=== PATIENT | male | born 1950 | race Caucasian/White ===

== ENCOUNTER 2021-12-29 14:29 | Inpatient (IN) ==
[2021-12-29 15:18] LABS: POC Calcium, Ionized 1.12 (1.16-1.32); POC Creatinine 1.5 (0.6-1.2); POC Potassium 4.9 (3.3-5.1)
[2021-12-29] MEDS ORDERED: HYDROmorphone 1 MG/ML SYRINGE IV ONE ×2 (15:23→16:06)
[2021-12-29] MEDS ORDERED: ACETAMINOPHEN 1,000 MG/100 ML BAG IV ONE (15:23)
[2021-12-29] MEDS ORDERED: 0.9 % SODIUM CHLORIDE 1,000 ML IV ONE (15:23)
[2021-12-29] MEDS ORDERED: PIPERACILLIN SODIUM/TAZOBACTAM 3.375 GM in DEXTROSE 5% IN WATER 50 ML IV ONE (15:24)
--- NOTE | 2021-12-29 15:25 | Emergency Department Note ---
Skin/Abscess/FB HPI General Chief complaint: Skin/Abscess/Rash Stated complaint: dr yash waters, foot pain Time Seen by Provider: 12/29/21 14:31 Source: patient Mode of arrival: ambulatory Limitations: no limitations History of Present Illness HPI Narrative: 71-year-old male with history of T2DM, head neck cancer status post chemotherapies, COPD, chronic low back pain CAD, PAD, HTN history of hepatitis C, CKD stage II who presents for diabetic foot wound from Dr. Tran's office who sent him here for IV antibiotics, pain management, and admission for surgical debridement tomorrow. Patient is stating that he has throbbing pain in the left foot. This has been chronic for him on and off and he actually has 90% disability from a crush wound to this foot when he was in [place]. He denies fevers/chills/sweats. Symptoms started about 5 days ago. He was seen by Dr. Forbes on Sunday and labs were drawn and he was sent to podiatry for evaluation. He followed up today with Dr. Tran who sent the patient to the ER. An x-ray from 12/27 shows gas at the base of the first phalanx, no osteomyelitis. Patient notes that he has a feeding tube that was placed during his radiation chemotherapy's. He has now started eating solid foods but uses this for adjunct nutrition. He also has a morphine pain pump in the right lower abdomen. Unknown what the rate is. Related Data Home Medications Medication Instructions Recorded Confirmed aspirin 81 mg tablet,delayed 81 mg PO QDAY 09/26/17 12/29/21 release (Adult Aspirin Regimen) lancets (Lancets,Ultra Thin) #50 ea 08/27/19 12/29/21 clopidogrel 75 mg tablet (Plavix) 75 mg PO QDAY 07/12/20 12/29/21 prochlorperazine maleate 5 mg 5 mg PO BID PRN Nausea 08/08/21 12/29/21 tablet duloxetine 60 mg capsule,delayed 30 mg PO QHS 11/10/21 12/29/21 release metformin 1,000 mg 24 hr 500 mg PO QDAY 11/10/21 12/29/21 tablet,extended release multivitamin 1 tab PO QDAY 11/10/21 12/29/21 pregabalin 150 mg capsule 150 mg PO QHS PRN pain 12/29/21 12/29/21 Previous Rx's Medication Instructions Recorded atorvastatin 40 mg tablet 40 mg PO QDAY #90 tabs 09/05/19 empagliflozin 25 mg tablet 25 mg PO QDAY #90 tabs 09/05/19 (Jardiance) lisinopril 10 mg tablet 10 mg PO QDAY #90 tabs 09/05/19 cilostazol 50 mg tablet 50 mg PO BID #30 tabs 07/29/20 flash glucose scanning reader #6 ea 08/18/20 (FreeStyle Esther 14 Day [place]) hydroxyzine HCl 25 mg tablet 25 mg PO BID PRN anxiety #30 tabs 07/14/21 naloxone 4 mg/actuation nasal spray 4 mg intranasal .COMPLEX PRN 07/14/21 opioid overdose #2 ea flash glucose sensor (FreeStyle #6 ea 08/17/21 Esther 14 Day Sensor kit) morphine 60 mg tablet,extended 60 mg PO BID #60 tabs 11/24/21 release (MS Contin) oxycodone 10 mg tablet 10 - 20 mg PO .Q4-6H PRN pain #180 11/24/21 tabs lorazepam 1 mg tablet (Ativan) 1 mg PO QHS #30 tabs 12/01/21 pregabalin 75 mg capsule 75 mg PO QHS #90 caps 12/14/21 escitalopram oxalate 10 mg tablet 10 mg PO QDAY #90 tabs 12/27/21 sulfamethoxazole 800 1 tab PO BID #20 tabs 12/27/21 mg-trimethoprim 160 mg tablet (Bactrim DS) Allergies Allergy/AdvReac Type Severity Reaction Status Date / Time latex Allergy Severe Hives Verified 12/29/21 18:37 Bee Pollen Allergy Unknown Swelling Verified 12/29/21 18:37 chlora prep Allergy Severe Hives Uncoded 12/29/21 18:37 Review of Systems ROS ROS Narrative: Narrative: All systems ED: reviewed and negative except as stated. [facility] Narrative Patient History Narrative: Narrative: Medical/Surgical/Family History All Active Problems (Updated 12/29/21 @ 16:42 by Yancy Rutledge PA-C) Diabetic foot ulcer with osteomyelitis (Acute) Major depressive disorder (Acute) Cellulitis of left foot (Acute) Passive suicidal ideations (Acute) Urinary retention (Acute) Post-operative pain (Acute) 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) Umbilical hernia (Chronic) Lymphadenopathy (Acute) Peripheral vascular disease (Acute) Left foot pain (Chronic) Toe pain, left (Chronic) Neurogenic claudication due to lumbar spinal stenosis (Chronic) Degenerative joint disease (Chronic) Type 2 diabetes mellitus without complications (Chronic) History of cancer (Chronic) Hypercholesterolemia (Chronic) Embolism and thrombosis of artery (Chronic) COPD (chronic obstructive pulmonary disease) (Chronic) Spondylosis without myelopathy or radiculopathy, lumbar region (Chronic) Spinal stenosis, lumbar region without neurogenic claudication (Chronic) Radiculopathy, cervical region (Chronic) Chronic pain (Chronic) Low back pain (Chronic) Radiculopathy, lumbar region (Chronic) Spondylosis without myelopathy or radiculopathy, cervical region (Chronic) Medicare annual wellness visit, initial (Chronic) Hemorrhoids (Chronic) Hepatitis C (Chronic) Hemochromatosis (Chronic) Atherosclerotic heart disease of [place] coronary artery without angina pectoris (Chronic) PAD (peripheral artery disease) (Chronic) Carpal tunnel syndrome, right (Chronic) Metabolic syndrome (Chronic) Skin cancer (Chronic) Arthritis (Chronic) Acute hemorrhoid (Chronic) PNA (pneumonia) (Chronic) History of bronchitis (Chronic) Measles (Chronic) Hypertension (Chronic) 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) Chronic hepatitis C without hepatic coma (Chronic) Other cervical disc degeneration, cervicothoracic region (Chronic) 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) History of hepatitis C (Chronic) Atherosclerosis of aorta (Chronic) Chronic kidney disease, stage 2 (mild) (Chronic) Type 2 diabetes mellitus with hyperglycemia (Chronic) 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) Nicotine dependence, cigarettes, uncomplicated (Chronic) Other nonrheumatic aortic valve disorders (Chronic) Essential hypertension (Chronic) Intermittent claudication of left lower extremity due to atherosclerosis (Chronic) Opioid dependence, uncomplicated (Chronic) Chronic pain due to trauma (Chronic) Hyperlipidemia, unspecified (Chronic) Other chronic postprocedural pain (Chronic) Other intervertebral disc degeneration, lumbar region (Chronic) senior living current use of opiate analgesic (Chronic) Kidney cysts (Chronic) Laceration (Chronic) Encounter for removal of sutures (Chronic) Medical History Acute hemorrhoid Arthritis Atherosclerosis of aorta Atherosclerotic heart disease of [place] coronary artery without angina pectoris Carpal tunnel syndrome, right Chronic hepatitis C without hepatic coma Chronic kidney disease, stage 2 (mild) Chronic pain Chronic pain due to malignant neoplastic disease With intrathecal pump in place Chronic pain due to trauma COPD (chronic obstructive pulmonary disease) Degenerative joint disease Embolism and thrombosis of artery Blood clot in neck after fusion 2009/removed in surgery Encounter for removal of sutures Essential hypertension Hemochromatosis Hemochromatosis associated with mutation in HFE gene Hemorrhoids Hepatitis C History of bronchitis History of cancer History of hepatitis C Hypercholesterolemia Hyperlipidemia, unspecified Hypertension Intermittent claudication of left lower extremity due to atherosclerosis Kidney cysts Laceration Left foot pain 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 of 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 of opiate analgesic Low back pain Measles Medicare annual wellness visit, initial Metabolic syndrome Neurogenic claudication due to lumbar spinal stenosis Nicotine dependence, cigarettes, uncomplicated Opioid dependence, uncomplicated Other cervical disc degeneration, cervicothoracic region Other chronic postprocedural pain Other intervertebral disc degeneration, lumbar region Other nonrheumatic aortic valve disorders PAD (peripheral artery disease) PNA (pneumonia) Porphyria cutanea tarda Radiculopathy, cervical region Radiculopathy, lumbar region Secondary osteoarthritis of left foot Skin cancer Spinal stenosis, lumbar region without neurogenic claudication Spondylosis without myelopathy or radiculopathy, cervical region Spondylosis without myelopathy or radiculopathy, lumbar region 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 Type 2 diabetes mellitus with hyperglycemia Type 2 diabetes mellitus without complications Surgical History History of carpal tunnel surgery History of elbow surgery L History of eye surgery (~2016) Right 2017 History of foot surgery (~09/2011) L History of hand surgery Both hands History of neck surgery (~2007) 2007 History of oral surgery Root canal History of orthopedic surgery Left foot 09/2011 History of orthopedic surgery (~1992) Multiple sites- Elbow Left, Bilateral hand, Right Shoulder History of root canal procedure History of shoulder surgery R History of surgery ankle History of surgery LESI #2 L3-4 w/sed 11/03/201910/26 MAYDA #2 w/cath, w/sed 11/03/201907/27 L3-4 TAY #1 w/ sed 07/22/1907/27 MAYDA #1 w/cath, w/sed 07/22/1904/28 LESI #3 L4-5 w/sed 05/08/1904/28 MAYDA #3 w/cath, wsed 05/08/1903/27 MYADA #2 w/cath, w/sed 03/12/1903/27 LESI #2 L4-5 w/sed 03/12/1901/25 LESI #1 L4-5 w/sed 01/14/201901/25 MAYDA #1 w/cath, w/sed 01/14/201908/25 LESI #3 L4-5 w/sed 08/14/201808/25 MAYDA #3 w/cath w/sed 08/14/201805/28 MAYDA #2 w/cath w/sed 05/21/201805/28 LESI #2 L4-5 w/sed 05/21/201803/26 LESI #1 L4-5 w/sed 03/14/1803/26 MAYDA #1 w/cath, w/sed 03/14/1812/25 LESI #3 L4-5 w/sed 01/02/1812/25 MAYDA #3 w/cath, w/sed 01/02/1809/24 LESI #2 L4-5 w/sed 09/18/1709/24 MAYDA #2 w/cath, w/sed 09/18/1707/25 LESI #1 L4-5 w/sed 08/01/1707/25 MAYDA #1 w/cath, w/sed 07/17/201706/24 MBB C3-7 bilat w/sed 06/28/201701/23 LESI #1 L4-5 w/sed 01/22/201711/23 MAYDA #2 w/cath w/sed 11/21/201610/23 MAYDA #1 w/sed, w/cath 11/02/201610/20 MAYDA #2 w/sed 10/23/201307/21 LESI #1 L4-5 w/sed 07/16/201307/21 MAYDA #1 w/sed 07/16/201301/17 Facets Left L2-3,L3-4, L4-5, L5-S1 w/sed (10-6-11) Status post trigger finger release (~03/2014) 03/2014 Family History Mother Dementia Father Cancer Grandmother Diabetes Maternal Brother Lung cancer Other Breast cancer Colon cancer Social History Smoking Status: Current some day smoker Alcohol Intake Frequency: does not drink Substance Use: does not use Exam Narrative Narrative: General: AOx3, NAD, nontoxic appearing. Pleasant and conversant. HEENT: PERRL, EOMI, normocephalic. Moist mucous membranes. Normal facies and normal dentition. Chest: Symmetric, no pain to palpation. There is a left port in place. Respiratory: Subtle crackles in the right upper lung field. No respiratory distress. Unlabored breathing. Heart: Regular rate and rhythm, no murmurs/clicks/rubs. Abdomen: Non-tender, Non distended, normal bowel tones. No organomegaly. Feeding tube to the anterior abdomen and right lower quadrant pain pump in place. Extremities: Warm and well perfused. Left foot edema and cellulitis is noted that extends to the lower one third of the calf.. He has a chronic wound to the first MTP of the left foot on the plantar surface. DP 2+ bilaterally. No venou s stasis. Neuro: No focal deficits. Cranial nerves II-XII grossly normal. Skin: Warm dry, no rashes or lesions, no cyanosis. Psych: Normal mood and affect Heme/Lymph: No abnormal bruising General Limitations: no limitations Course Course Course Narrative: 71-year-old male presents for infected diabetic foot wound and cellulitis of the left lower extremity Reevaluation(s) Reevaluation #1: Obtain blood cultures, basic labs Establish IV give pain meds Start Zosyn Will need admission, awaiting Dr. Tran's call to determine disposition. Reevaluation #2: EKG normal sinus rhythm no acute ST segment changes to suggest ischemia, normal intervals and normal axis. White count is not elevated, sodium is 126 Vital Signs Vital signs: Vital Signs Temperature 98.8 F 12/29/21 14:33 Pulse Rate 88 12/29/21 14:33 Respiratory Rate 18 12/29/21 14:33 Blood Pressure 111/58 12/29/21 14:33 Pulse Oximetry (%) 99 12/29/21 14:33 Oxygen Delivery Method 12/29/21 14:33 Temperature 99.5 F H 12/31/21 07:38 Pulse Rate 64 12/31/21 03:39 Respiratory Rate 20 12/31/21 07:38 Blood Pressure 108/62 12/31/21 07:38 Pulse Oximetry (%) 92 12/31/21 07:38 Oxygen Delivery Method 12/31/21 07:38 Oxygen Flow Rate (L/min) 5 12/30/21 09:26 MDM MDM Narrative Medical decision making narrative: Infected left diabetic foot wound Hyponatremia Patient will need admission and I&D of the left foot. Given the patient's multiple comorbidities I reached out to Dr. Amador for admission who will come and see the patient here in the ER. Blood cultures are pending. Lab Data Result diagrams: 12/31/21 05:50 12/31/21 05:49 Labs: Lab Results 12/29/21 12/29/21 12/29/21 Range/Units 15:12 15:12 15:12 WBC 8.0 (4.5-11.0) K/mcL RBC 2.86 L (4.63-6.08) M/mcL Hgb 8.9 L (13.7-17.5) g/dL Hct 26.9 L (40.1-51.0) % POC Hct (41-55) MCV 94.1 (80.0-100.0) fL MCH 31.1 (26.0-34.0) pg MCHC 33.1 (31.0-36.0) g/dL RDW 14.3 (11.5-14.5) % Plt Count 202 (140-440) K/mcL MPV 10.4 (7.4-10.4) fL Immature Gran % (Auto) 0.4 (0.0-0.5) % Neut % (Auto) 78.9 H (38.0-78.0) % Lymph % (Auto) 6.6 L (15.5-49.0) % Andrew % (Auto) 11.0 (1.0-12.0) % Eos % (Auto) 2.8 (0.0-7.0) % Baso % (Auto) 0.3 (0.0-2.0) % Lymph # (Auto) 0.53 L (1.50-4.80) K/mcL Andrew # (Auto) 0.88 (0.10-0.90) K/mcL Eos # (Auto) 0.22 (0.00-0.70) K/mcL Baso # (Auto) 0.02 (0.00-0.30) K/mcL Immature Gran # 0.03 (0.00-0.05) K/mcl Absolute Neutrophils 6.30 (1.80-8.00) K/mcL PT 13.0 (11.9-14.5) sec INR 0.9 (0.9-1.1) POC Sodium (133-145) Sodium 125 L (133-145) mmol/L POC Potassium (3.3-5.1) Potassium 4.9 (3.3-5.1) mmol/L POC Chloride (96-108) Chloride 87 L (96-108) mmol/L Carbon Dioxide 29 (22-30) mmol/L POC Total CO2 (22-30) Anion Gap 9.0 (8.0-16.0) POC BUN (6-20) BUN 31 H (8-23) mg/dL Creatinine 1.4 H (0.7-1.2) mg/dL POC Creatinine (0.6-1.2) GFR Calculation 50 Glucose 117 H (70-105) mg/dL POC Glucose (70-105) Osmolality (280-300) mOSM/kg Uric Acid (2.5-8.0) mg/dL Calcium 8.9 (8.6-10.4) mg/dL POC WB Ioniz Calcium (1.16-1.32) Total Bilirubin < 0.2 (0.1-1.0) mg/dL AST 19 (<40) U/L ALT 13 (<40) U/L Alkaline Phosphatase 89 (39-117) U/L Total Protein 6.9 (5.9-8.4) gm/dL Albumin 3.2 (3.2-5.2) gm/dL Globulin 3.7 (2.2-3.7) gm/dL Albumin/Globulin Ratio 0.9 L (1.0-2.3) TSH (0.27-5.01) uIU/mL Urine Color Urine Appearance (Clear) Urine pH (5.0-9.0) Ur Specific [place] (1.000-1.035) Urine Protein (Negative) mg/dL Urine Glucose (UA) (Negative) mg/dL Urine Ketones (Negative) mg/dL Urine Occult Blood (Negative) mg/dL Urine Nitrate (Negative) Urine Bilirubin (Negative) mg/dL Urine Urobilinogen mg/dL Ur Leukocyte Esterase (Negative) /uL Urine RBC (0-3) /hpf Urine WBC (0-4) /hpf Ur Squamous Epith Cells (0-4) /hpf Urine Bacteria (0) /hpf Ur Culture Indicated? Urine Osmolality (80-1000) mOSM/kg Ur Random Creatinine (39.0-259.0) mg/dL Ur Random Sodium mmol/L 12/29/21 12/29/21 12/29/21 Range/Units 15:12 15:12 15:13 WBC (4.5-11.0) K/mcL RBC (4.63-6.08) M/mcL Hgb (13.7-17.5) g/dL Hct (40.1-51.0) % POC Hct 28.0 L (41-55) MCV (80.0-100.0) fL MCH (26.0-34.0) pg MCHC (31.0-36.0) g/dL RDW (11.5-14.5) % Plt Count (140-440) K/mcL MPV (7.4-10.4) fL Immature Gran % (Auto) (0.0-0.5) % Neut % (Auto) (38.0-78.0) % Lymph % (Auto) (15.5-49.0) % Andrew % (Auto) (1.0-12.0) % Eos % (Auto) (0.0-7.0) % Baso % (Auto) (0.0-2.0) % Lymph # (Auto) (1.50-4.80) K/mcL Andrew # (Auto) (0.10-0.90) K/mcL Eos # (Auto) (0.00-0.70) K/mcL Baso # (Auto) (0.00-0.30) K/mcL Immature Gran # (0.00-0.05) K/mcl Absolute Neutrophils (1.80-8.00) K/mcL PT (11.9-14.5) sec INR (0.9-1.1) POC Sodium 126 L (133-145) Sodium (133-145) mmol/L POC Potassium 4.9 (3.3-5.1) Potassium (3.3-5.1) mmol/L POC Chloride 87 L (96-108) Chloride (96-108) mmol/L Carbon Dioxide (22-30) mmol/L POC Total CO2 30.0 (22-30) Anion Gap (8.0-16.0) POC BUN 30 H (6-20) BUN (8-23) mg/dL Creatinine (0.7-1.2) mg/dL POC Creatinine 1.5 H (0.6-1.2) GFR Calculation Glucose (70-105) mg/dL POC Glucose 120 H (70-105) Osmolality 279 L (280-300) mOSM/kg Uric Acid 4.5 (2.5-8.0) mg/dL Calcium (8.6-10.4) mg/dL POC WB Ioniz Calcium 1.12 L (1.16-1.32) Total Bilirubin (0.1-1.0) mg/dL AST (<40) U/L ALT (<40) U/L Alkaline Phosphatase (39-117) U/L Total Protein (5.9-8.4) gm/dL Albumin (3.2-5.2) gm/dL Globulin (2.2-3.7) gm/dL Albumin/Globulin Ratio (1.0-2.3) TSH 3.05 (0.27-5.01) uIU/mL Urine Color Urine Appearance (Clear) Urine pH (5.0-9.0) Ur Specific [place] (1.000-1.035) Urine Protein (Negative) mg/dL Urine Glucose (UA) (Negative) mg/dL Urine Ketones (Negative) mg/dL Urine Occult Blood (Negative) mg/dL Urine Nitrate (Negative) Urine Bilirubin (Negative) mg/dL Urine Urobilinogen mg/dL Ur Leukocyte Esterase (Negative) /uL Urine RBC (0-3) /hpf Urine WBC (0-4) /hpf Ur Squamous Epith Cells (0-4) /hpf Urine Bacteria (0) /hpf Ur Culture Indicated? Urine Osmolality (80-1000) mOSM/kg Ur Random Creatinine (39.0-259.0) mg/dL Ur Random Sodium mmol/L 12/29/21 12/29/21 12/29/21 Range/Units 16:05 16:05 16:05 WBC (4.5-11.0) K/mcL RBC (4.63-6.08) M/mcL Hgb (13.7-17.5) g/dL Hct (40.1-51.0) % POC Hct (41-55) MCV (80.0-100.0) fL MCH (26.0-34.0) pg MCHC (31.0-36.0) g/dL RDW (11.5-14.5) % Plt Count (140-440) K/mcL MPV (7.4-10.4) fL Immature Gran % (Auto) (0.0-0.5) % Neut % (Auto) (38.0-78.0) % Lymph % (Auto) (15.5-49.0) % Andrew % (Auto) (1.0-12.0) % Eos % (Auto) (0.0-7.0) % Baso % (Auto) (0.0-2.0) % Lymph # (Auto) (1.50-4.80) K/mcL Andrew # (Auto) (0.10-0.90) K/mcL Eos # (Auto) (0.00-0.70) K/mcL Baso # (Auto) (0.00-0.30) K/mcL Immature Gran # (0.00-0.05) K/mcl Absolute Neutrophils (1.80-8.00) K/mcL PT (11.9-14.5) sec INR (0.9-1.1) POC Sodium (133-145) Sodium (133-145) mmol/L POC Potassium (3.3-5.1) Potassium (3.3-5.1) mmol/L POC Chloride (96-108) Chloride (96-108) mmol/L Carbon Dioxide (22-30) mmol/L POC Total CO2 (22-30) Anion Gap (8.0-16.0) POC BUN (6-20) BUN (8-23) mg/dL Creatinine (0.7-1.2) mg/dL POC Creatinine (0.6-1.2) GFR Calculation Glucose (70-105) mg/dL POC Glucose (70-105) Osmolality (280-300) mOSM/kg Uric Acid (2.5-8.0) mg/dL Calcium (8.6-10.4) mg/dL POC WB Ioniz Calcium (1.16-1.32) Total Bilirubin (0.1-1.0) mg/dL AST (<40) U/L ALT (<40) U/L Alkaline Phosphatase (39-117) U/L Total Protein (5.9-8.4) gm/dL Albumin (3.2-5.2) gm/dL Globulin (2.2-3.7) gm/dL Albumin/Globulin Ratio (1.0-2.3) TSH (0.27-5.01) uIU/mL Urine Color Yellow Urine Appearance Clear (Clear) Urine pH 7.0 (5.0-9.0) Ur Specific [place] 1.005 (1.000-1.035) Urine Protein Negative (Negative) mg/dL Urine Glucose (UA) >=500 A (Negative) mg/dL Urine Ketones Negative (Negative) mg/dL Urine Occult Blood Negative (Negative) mg/dL Urine Nitrate Negative (Negative) Urine Bilirubin Negative (Negative) mg/dL Urine Urobilinogen Negative mg/dL Ur Leukocyte Esterase Negative (Negative) /uL Urine RBC 2 (0-3) /hpf Urine WBC < 1 (0-4) /hpf Ur Squamous Epith Cells 0 (0-4) /hpf Urine Bacteria None (0) /hpf Ur Culture Indicated? No Urine Osmolality 229 (80-1000) mOSM/kg Ur Random Creatinine 21.2 L (39.0-259.0) mg/dL Ur Random Sodium 20 mmol/L Discharge Plan Patient/Caregiver Discharge Instructions Pt seen by BULK DELIVERY DRIVER/PA only: Yes Clinical Impression: Diabetic foot ulcer with osteomyelitis Patient Disposition: Xfer As Inpt ([facility]) Discharge Date/Time: 12/29/21 18:28
--- NOTE | 2021-12-29 15:59 | XRay Report ---
HISTORY: Preop FINDINGS: The lungs are clear and well expanded. Patient has a Port-A-Cath placed through the left internal jugular vein with the tip in the superior vena cava. The mediastinum and kelly are normal. The heart size and pulmonary vessels are normal. There is a metal plate in the lower neck following fusion. There has been prior surgery in the acromioclavicular joints. IMPRESSION: Normal chest. Interpreted and Authenticated by: Sterling Gayle 12/29/21
[2021-12-29] MEDS ORDERED: HYDROmorphone 1 MG/ML SYRINGE IV PRN (16:08)
[2021-12-29 16:27] LABS: Basophils # (Auto) 0.02 K/mcL (0.00-0.30); Basophils % (Auto) 0.3 % (0.0-2.0); Eosinophils # (Auto) 0.22 K/mcL (0.00-0.70); Eosinophils % (Auto) 2.8 % (0.0-7.0); Hematocrit 26.9 % (40.1-51.0); Hemoglobin 8.9 g/dL (13.7-17.5); Lymphocytes # (Auto) 0.53 K/mcL (1.50-4.80); Lymphocytes % (Auto) 6.6 % (15.5-49.0); Mean Cell Volume 94.1 fL (80.0-100.0); Mean Corpuscular HGB Conc 33.1 g/dL (31.0-36.0); Mean Platelet Volume 10.4 fL (7.4-10.4); Monocytes # (Auto) 0.88 K/mcL (0.10-0.90); Neutrophils % (Auto) 78.9 % (38.0-78.0); Platelet Count 202 K/mcL (140-440); RBC 2.86 M/mcL (4.63-6.08); Red Cell Distribution Width 14.3 % (11.5-14.5)
--- NOTE | 2021-12-29 16:31 | Internal Med History&Physical ---
HPI History of Present Illness Patient information: Note initiated : 12/29/21 at 4:30 pm Service Date, if different from initiated Date: [] Patient: Jt Goodrich a 71 y/o M admitted on for dr yash waters, foot pain. Chief Complaint: [] History of present illness: Mr. Goodrich is a 71 year old M Patient presents the ED with left foot infection for the past week. He was sent in by his campaign manager Dr. Tran. Patient states that about a week ago he noticed that his left foot which has had a history of crush injury developed redness swelling and pain around the ball of the foot. He went in to see his primary care Dr. Forbes who ordered x-ray and some labs and then sent him to see Dr. Tran. The x-ray showed some gas in the soft tissue. Dr. Tran saw him today and sent him to the ED for IV antibiotics and likely surgical I&D. Patient denies fever chills nausea vomiting. Sodium was noted to be low at 126 with a low chloride and an elevated BUN and creatinine as well. Anemia present. Review of Systems: Pertinent positives as above. Denies headache/fever/chills/nausea/vomiting/chest or abdominal pain/cough/dyspnea/diarrhea. Remaining 10 point review of system reviewed and negative. 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) Umbilical hernia (Chronic) Lymphadenopathy (Acute) Peripheral vascular disease (Acute) Left foot pain (Chronic) Toe pain, left (Chronic) Neurogenic claudication due to lumbar spinal stenosis (Chronic) Degenerative joint disease (Chronic) Type 2 diabetes mellitus without complications (Chronic) History of cancer (Chronic) Hypercholesterolemia (Chronic) Embolism and thrombosis of artery (Chronic) COPD (chronic obstructive pulmonary disease) (Chronic) Spondylosis without myelopathy or radiculopathy, lumbar region (Chronic) Spinal stenosis, lumbar region without neurogenic claudication (Chronic) Radiculopathy, cervical region (Chronic) Chronic pain (Chronic) Low back pain (Chronic) Radiculopathy, lumbar region (Chronic) Spondylosis without myelopathy or radiculopathy, cervical region (Chronic) Medicare annual wellness visit, initial (Chronic) Hemorrhoids (Chronic) Hepatitis C (Chronic) Hemochromatosis (Chronic) Atherosclerotic heart disease of [place] coronary artery without angina pectoris (Chronic) PAD (peripheral artery disease) (Chronic) Carpal tunnel syndrome, right (Chronic) Metabolic syndrome (Chronic) Skin cancer (Chronic) Arthritis (Chronic) Acute hemorrhoid (Chronic) PNA (pneumonia) (Chronic) History of bronchitis (Chronic) Measles (Chronic) Hypertension (Chronic) 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) Chronic hepatitis C without hepatic coma (Chronic) Other cervical disc degeneration, cervicothoracic region (Chronic) 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) History of hepatitis C (Chronic) Atherosclerosis of aorta (Chronic) Chronic kidney disease, stage 2 (mild) (Chronic) Type 2 diabetes mellitus with hyperglycemia (Chronic) FDC current use of insulin (Chronic) Nicotine dependence, cigarettes, uncomplicated (Chronic) Other nonrheumatic aortic valve disorders (Chronic) Essential hypertension (Chronic) Intermittent claudication of left lower extremity due to atherosclerosis (Chronic) Opioid dependence, uncomplicated (Chronic) Chronic pain due to trauma (Chronic) Hyperlipidemia, unspecified (Chronic) Other chronic postprocedural pain (Chronic) Other intervertebral disc degeneration, lumbar region (Chronic) FDC current use of opiate analgesic (Chronic) Kidney cysts (Chronic) Laceration (Chronic) Encounter for removal of sutures (Chronic) Medical History Acute hemorrhoid Arthritis Atherosclerosis of aorta Atherosclerotic heart disease of [place] coronary artery without angina pectoris Carpal tunnel syndrome, right Chronic hepatitis C without hepatic coma Chronic kidney disease, stage 2 (mild) Chronic pain Chronic pain due to malignant neoplastic disease With intrathecal pump in place Chronic pain due to trauma COPD (chronic obstructive pulmonary disease) Degenerative joint disease Embolism and thrombosis of artery Blood clot in neck after fusion 2009/removed in surgery Encounter for removal of sutures Essential hypertension Hemochromatosis Hemochromatosis associated with mutation in HFE gene Hemorrhoids Hepatitis C History of bronchitis History of cancer History of hepatitis C Hypercholesterolemia Hyperlipidemia, unspecified Hypertension Intermittent claudication of left lower extremity due to atherosclerosis Kidney cysts Laceration Left foot pain terminal clerk current use of insulin terminal clerk current use of opiate analgesic Low back pain Measles Medicare annual wellness visit, initial Metabolic syndrome Neurogenic claudication due to lumbar spinal stenosis Nicotine dependence, cigarettes, uncomplicated Opioid dependence, uncomplicated Other cervical disc degeneration, cervicothoracic region Other chronic postprocedural pain Other intervertebral disc degeneration, lumbar region Other nonrheumatic aortic valve disorders PAD (peripheral artery disease) PNA (pneumonia) Porphyria cutanea tarda Radiculopathy, cervical region Radiculopathy, lumbar region Secondary osteoarthritis of left foot Skin cancer Spinal stenosis, lumbar region without neurogenic claudication Spondylosis without myelopathy or radiculopathy, cervical region Spondylosis without myelopathy or radiculopathy, lumbar region 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 Type 2 diabetes mellitus with hyperglycemia Type 2 diabetes mellitus without complications Surgical History History of carpal tunnel surgery History of elbow surgery L History of eye surgery (~2016) Right 2017 History of foot surgery (~09/2011) L History of hand surgery Both hands History of neck surgery (~2007) 2007 History of oral surgery Root canal History of orthopedic surgery Left foot 09/2011 History of orthopedic surgery (~1992) Multiple sites- Elbow Left, Bilateral hand, Right Shoulder History of root canal procedure History of shoulder surgery R History of surgery ankle History of surgery LESI #2 L3-4 w/sed 11/03/201910/26 MAYDA #2 w/cath, w/sed 11/03/201907/27 L3-4 TAY #1 w/ sed 07/22/1907/27 MAYDA #1 w/cath, w/sed 07/22/1904/28 LESI #3 L4-5 w/sed 05/08/1904/28 MAYDA #3 w/cath, wsed 05/08/1903/27 MAYDA #2 w/cath, w/sed 03/12/1903/27 LESI #2 L4-5 w/sed 03/12/1901/25 LESI #1 L4-5 w/sed 01/14/201901/25 MAYDA #1 w/cath, w/sed 01/14/201908/25 LESI #3 L4-5 w/sed 08/14/201808/25 MAYDA #3 w/cath w/sed 08/14/201805/28 MAYDA #2 w/cath w/sed 05/21/201805/28 LESI #2 L4-5 w/sed 05/21/201803/26 LESI #1 L4-5 w/sed 03/14/1803/26 MAYDA #1 w/cath, w/sed 03/14/1812/25 LESI #3 L4-5 w/sed 01/02/1812/25 MAYDA #3 w/cath, w/sed 01/02/1809/24 LESI #2 L4-5 w/sed 09/18/1709/24 MAYDA #2 w/cath, w/sed 09/18/1707/25 LESI #1 L4-5 w/sed 08/01/1707/25 MAYDA #1 w/cath, w/sed 07/17/201706/24 MBB C3-7 bilat w/sed 06/28/201701/23 LESI #1 L4-5 w/sed 01/22/201711/23 MAYDA #2 w/cath w/sed 11/21/201610/23 MAYDA #1 w/sed, w/cath 11/02/201610/20 MAYDA #2 w/sed 10/23/201307/21 LESI #1 L4-5 w/sed 07/16/201307/21 MAYDA #1 w/sed 07/16/201301/17 Facets Left L2-3,L3-4, L4-5, L5-S1 w/sed (01-12-11) Status post trigger finger release (~03/2014) 03/2014 Family History Mother Dementia Father Cancer Grandmother Diabetes Maternal Brother Lung cancer Other Breast cancer Colon cancer Social History marital status: occupational status: retired smoking status: Current some day smoker alcohol intake frequency: does not drink substance use type: does not use MEDS/ALLERGIES Home Medications and Allergies Home Medications Medication Instructions Recorded Confirmed Type aspirin 81 mg tablet,delayed 81 mg PO QDAY 09/26/17 12/27/21 History release (Adult Aspirin Regimen) lancets (Lancets,Ultra Thin) #50 ea 08/27/19 12/27/21 History atorvastatin 40 mg tablet 40 mg PO QDAY #90 tabs 09/05/19 12/27/21 Rx empagliflozin 25 mg tablet 25 mg PO QDAY #90 tabs 09/05/19 12/27/21 Rx (Jardiance) lisinopril 10 mg tablet 10 mg PO QDAY #90 tabs 09/05/19 12/27/21 Rx clopidogrel 75 mg tablet (Plavix) 75 mg PO QDAY 07/12/20 12/27/21 History cilostazol 50 mg tablet 50 mg PO BID #30 tabs 07/29/20 12/27/21 Rx flash glucose scanning reader #6 ea 08/18/20 12/27/21 Rx (FreeStyle Esther 14 Day [place]) hydroxyzine HCl 25 mg tablet 25 mg PO BID PRN anxiety #30 tabs 07/14/21 12/27/21 Rx naloxone 4 mg/actuation nasal spray 4 mg intranasal .COMPLEX PRN 07/14/21 12/27/21 Rx opioid overdose #2 ea prochlorperazine maleate 5 mg 5 mg PO BID PRN Nausea 08/08/21 12/27/21 History tablet flash glucose sensor (FreeStyle #6 ea 08/17/21 12/27/21 Rx Esther 14 Day Sensor kit) duloxetine 60 mg capsule,delayed 30 mg PO QHS 11/10/21 12/27/21 History release metformin 1,000 mg 24 hr 500 mg PO QDAY 11/10/21 12/27/21 History tablet,extended release multivitamin 1 tab PO QDAY 11/10/21 12/27/21 History vitamin A-vitamin C-vit E-min 1 tab PO BID 11/10/21 12/27/21 History tablet morphine 60 mg tablet,extended 60 mg PO BID #60 tabs 11/24/21 12/27/21 Rx release (MS Contin) oxycodone 10 mg tablet 10 - 20 mg PO .Q4-6H PRN pain #180 11/24/21 12/27/21 Rx tabs lorazepam 1 mg tablet (Ativan) 1 mg PO QHS #30 tabs 12/01/21 12/27/21 Rx pregabalin 150 mg capsule 150 mg PO QHS #90 caps 12/14/21 12/27/21 Rx pregabalin 75 mg capsule 75 mg PO QHS #90 caps 12/14/21 12/27/21 Rx escitalopram oxalate 10 mg tablet 10 mg PO QDAY #90 tabs 12/27/21 12/27/21 Rx sulfamethoxazole 800 1 tab PO BID #20 tabs 12/27/21 12/27/21 Rx mg-trimethoprim 160 mg tablet (Bactrim DS) Allergies Allergy/AdvReac Type Severity Reaction Status Date / Time Bee Pollen Allergy Unknown Unknown Verified 12/27/21 10:48 latex Allergy Unknown Unknown Verified 12/27/21 10:48 chlora prep Allergy Hives Uncoded 12/27/21 10:48 EXAM Constitutional Vitals: Temp Pulse Resp BP Pulse Ox O2 Del Method 98.8 F 74 18 135/70 100 12/29/21 14:33 12/29/21 16:01 12/29/21 14:33 12/29/21 16:01 12/29/21 16:01 12/29/21 14:33 Exam: General: Alert, Awake, No acute Distress Eyes/N/T: EOMI, PERRL, Head/Neck: neck supple, normocephalic atraumatic CV: RRR, 2/6SM, normal s1/s2 Pulm: Clear b/l, no wheezing/rhonchi/rales Abd: soft, nontender, +BS x4 Ext: no clubbing/cyanosis, LLE 2+ edema and RLE 3+ edema with erythema/swelling/tenderness Neuro: Alert, no focal deficits, moves all extremities, Skin: warm/dry DATA Data Completed and Pending Labs: Labs from last 24 hours 12/29/21 12/29/21 12/29/21 16:05 15:13 15:12 WBC RBC Hgb Hct POC Hct 28.0 L MCV MCH MCHC RDW Plt Count MPV Immature Gran % (Auto) Neut % (Auto) Lymph % (Auto) [place] % (Auto) Eos % (Auto) Baso % (Auto) Lymph # (Auto) [place] # (Auto) Eos # (Auto) Baso # (Auto) Immature Gran # Absolute Neutrophils PT INR POC Sodium 126 L Sodium Pending POC Potassium 4.9 Potassium Pending POC Chloride 87 L Chloride Pending Carbon Dioxide Pending POC Total CO2 30.0 Anion Gap Pending POC BUN 30 H BUN Pending Creatinine Pending POC Creatinine 1.5 H GFR Calculation Pending Glucose Pending POC Glucose 120 H Calcium Pending POC WB Ioniz Calcium 1.12 L Total Bilirubin Pending AST Pending ALT Pending Alkaline Phosphatase Pending Total Protein Pending Albumin Pending Globulin Pending Albumin/Globulin Ratio Pending Urine Color Pending Urine Appearance Pending Urine pH Pending Ur Specific [place] Pending Urine Protein Pending Urine Glucose (UA) Pending Urine Ketones Pending Urine Occult Blood Pending Urine Nitrate Pending Urine Bilirubin Pending Urine Urobilinogen Pending Ur Leukocyte Esterase Pending 12/29/21 12/29/21 15:12 15:12 WBC 8.0 RBC 2.86 L Hgb 8.9 L Hct 26.9 L POC Hct MCV 94.1 MCH 31.1 MCHC 33.1 RDW 14.3 Plt Count 202 MPV 10.4 Immature Gran % (Auto) 0.4 Neut % (Auto) 78.9 H Lymph % (Auto) 6.6 L [place] % (Auto) 11.0 Eos % (Auto) 2.8 Baso % (Auto) 0.3 Lymph # (Auto) 0.53 L [place] # (Auto) 0.88 Eos # (Auto) 0.22 Baso # (Auto) 0.02 Immature Gran # 0.03 Absolute Neutrophils 6.30 PT Pending INR Pending POC Sodium Sodium POC Potassium Potassium POC Chloride Chloride Carbon Dioxide POC Total CO2 Anion Gap POC BUN BUN Creatinine POC Creatinine GFR Calculation Glucose POC Glucose Calcium POC WB Ioniz Calcium Total Bilirubin AST ALT Alkaline Phosphatase Total Protein Albumin Globulin Albumin/Globulin Ratio Urine Color Urine Appearance Urine pH Ur Specific [place] Urine Protein Urine Glucose (UA) Urine Ketones Urine Occult Blood Urine Nitrate Urine Bilirubin Urine Urobilinogen Ur Leukocyte Esterase A/P Narrative A/P Narrative: A: *Left foot infection: *Hyponatremia: *MARYANN on CKD III: Likely prerenal *Anemia, chronic: *PVD: On asa/?plavix/?cilostazol, statin *DM w/neuropathy: *HTN/HLD: on acei *Depression/anxiety: P: -IV abx -Dr. Tran for podiatry -IVF f/u renal -Hold antiplatelets for surgery -Continue statin -hold ACEI for MARYANN -Urine studies and follow-up sodium level -PT/OT -Home medication reconciliation -ppx: Heparin(hold for any procedures) Time Spent With Patient Time: Total time spent is greater than 50% in coordination of care (as documented) at patient's floor/unit and/or counseling patient: Total time spent with greater than 50% in coordination of care (as documented) at patient's floor/unit and/or counseling patient:: 50 - 70 minutes
[2021-12-29 16:41] LABS: INR 0.9 (0.9-1.1)
[2021-12-29 16:44] LABS: ALT/SGPT 13 U/L (<40); AST/SGOT 19 U/L (<40); Albumin 3.2 gm/dL (3.2-5.2); Albumin/Globulin Ratio 0.9 (1.0-2.3); Alkaline Phosphatase 89 U/L (39-117); Bilirubin,Total < 0.2 mg/dL (0.1-1.0); Blood Urea Nitrogen 31 mg/dL (8-23); Calcium 8.9 mg/dL (8.6-10.4); Carbon Dioxide 29 mmol/L (22-30); Chloride 87 mmol/L (96-108); Globulin 3.7 gm/dL (2.2-3.7); Glomerular Filtration Rate 50; Glucose 117 mg/dL (70-105)
[2021-12-29 16:54] LABS: Appearance,Urine CLEAR (Clear); Bilirubin,Urine Negative (Negative); Color,Urine YELLOW; Culture Indicated,Urine No; Glucose,Urine (UA) >=500 mg/dL (Negative); Ketones,Urine Negative (Negative); Leukocyte Esterase,Urine Negative /uL (Negative); Nitrate,Urine Negative (Negative); Protein,Urine Negative (Negative); Specific Gravity,Urine 1.005 (1.000-1.035); Urine Blood Negative (Negative); Urine RBC 2 /hpf (0-3); Urine Squamous Epithelial Cell 0 /hpf (0-4); Urine WBC < 1 /hpf (0-4); Urobilinogen,Urine Negative
[2021-12-29 17:29] LABS: Uric Acid 4.5 mg/dL (2.5-8.0)
[2021-12-29 17:30] LABS: Osmolality,Urine 229 mOSM/kg (80-1000)
[2021-12-29 17:32] LABS: Sodium, Urine Random 20 mmol/L
[2021-12-29] MEDS ORDERED: 0.9 % SODIUM CHLORIDE 1,000 ML IV SCH (18:34)
[2021-12-29] MEDS ORDERED: ACETAMINOPHEN 325 MG TABLET PO PRN (18:34)
[2021-12-29] MEDS ORDERED: HYDROcodone/APAP 5/325MG TABLET PO PRN (18:34)
[2021-12-29] MEDS ORDERED: ONDANSETRON 4 MG/2 ML VIAL IV PRN (18:34)
[2021-12-29] MEDS ORDERED: DEXTROSE 50% 50 ML VIAL IV PRN (18:34)
[2021-12-29] MEDS ORDERED: morphine 4 MG/ML VIAL IV PRN (18:34)
[2021-12-29] MEDS ORDERED: LABETALOL 5 MG/ML ML IV PRN (18:34)
[2021-12-29] MEDS ORDERED: POTASSIUM CHLORIDE 40 MEQ in DEXTROSE 5% IN WATER 500 ML IV PRN (18:34)
[2021-12-29] MEDS ORDERED: MAGNESIUM SULFATE 2 GM/50 ML BAG IV PRN (18:34)
[2021-12-29] MEDS ORDERED: IPRATROPIUM/ALBUTEROL 3 ML AMPUL.NEB NEB PRN (18:34)
[2021-12-29] MEDS ORDERED: POLYETHYLENE GLYCOL 3350 17 GM PACKET PO PRN (18:34)
[2021-12-29] MEDS ORDERED: POTASSIUM CHLORIDE 20 MEQ TABLET PO PRN ×2 (18:34)
[2021-12-29] MEDS ORDERED: SENNOSIDES 1 TABLET PO PRN (18:34)
[2021-12-29] MEDS ORDERED: DEXTROSE 31 GM ORAL.SUSP PO PRN (18:34)
[2021-12-29] MEDS ORDERED: HYDROcodone/APAP 5/325MG TABLET PO ONE (19:24)
[2021-12-29] MEDS: INSULIN LISPRO 1 UNIT/0.01 ML UNIT SQ SCH (20:04)
[2021-12-29] MEDS ORDERED: NON FORMULARY MEDICATION 1 DOSE MISCELL (Oxycodone 10 mg tablet) PO PRN (21:03)
[2021-12-29] MEDS ORDERED: PREGABALIN 150 MG CAPSULE PO PRN (21:03)
[2021-12-29] MEDS ORDERED: PROCHLORPERAZINE 10 MG TABLET PO PRN (21:34)
[2021-12-29] MEDS: DOCUSATE SODIUM 100 MG CAPSULE PO SCH (21:48)
[2021-12-29] MEDS: PIPERACILLIN SODIUM/TAZOBACTAM 3.375 GM in DEXTROSE 5% IN WATER 50 ML IV SCH (21:48)
[2021-12-29] MEDS: DULoxetine 30 MG CAPSULE PO SCH (21:48)
[2021-12-29] MEDS: HYDROmorphone 0.5 MG/0.5 ML SYRINGE IV PRN (21:49)
[2021-12-29] MEDS: HEPARIN 5,000 UNIT/ML VIAL SQ SCH (21:55)
[2021-12-29] MEDS: 0.9 % SODIUM CHLORIDE 10 ML SYRINGE IV SCH (21:56)
[2021-12-30] MEDS: PIPERACILLIN SODIUM/TAZOBACTAM 3.375 GM in DEXTROSE 5% IN WATER 50 ML IV SCH ×4 (03:27→18:18)
[2021-12-30] MEDS: HYDROmorphone 0.5 MG/0.5 ML SYRINGE IV PRN ×4 (03:31→20:51)
[2021-12-30] MEDS: 0.9 % SODIUM CHLORIDE 10 ML SYRINGE IV SCH ×3 (06:25→20:51)
[2021-12-30 07:10] LABS: Basophils # (Auto) 0.03 K/mcL (0.00-0.30); Basophils % (Auto) 0.5 % (0.0-2.0); Eosinophils # (Auto) 0.24 K/mcL (0.00-0.70); Eosinophils % (Auto) 3.7 % (0.0-7.0); Hematocrit 29.9 % (40.1-51.0); Hemoglobin 9.6 g/dL (13.7-17.5); Lymphocytes # (Auto) 0.47 K/mcL (1.50-4.80); Lymphocytes % (Auto) 7.3 % (15.5-49.0); Mean Cell Volume 96.1 fL (80.0-100.0); Mean Corpuscular HGB Conc 32.1 g/dL (31.0-36.0); Mean Platelet Volume 10.4 fL (8.8-12.5); Monocytes # (Auto) 0.73 K/mcL (0.10-0.90); Monocytes % (Auto) 11.3 % (1.0-12.0); Neutrophils % (Auto) 76.9 % (38.0-78.0); Platelet Count 199 K/mcL (140-440); RBC 3.11 M/mcL (4.63-6.08); Red Cell Distribution Width 14.6 % (11.5-14.5); WBC 6.5 K/mcL (4.5-11.0)
[2021-12-30] MEDS: INSULIN LISPRO 1 UNIT/0.01 ML UNIT SQ SCH ×5 (07:14→20:50)
--- NOTE | 2021-12-30 07:47 | Internal Med Progress Note ---
SUBJECTIVE Subjective Patient information: Note initiated : 12/30/21 at 7:43 am Service Date, if different from initiated Date: [] Patient: Jt Goodrich a 71 y/o M admitted on 12/29/[address] yash waters, foot pain. Chief Complaint: [] Interval history: History of present illness: Mr. Goodrich is a 71 year old M Patient presents the ED with left foot infection for the past week. He was sent in by his billing administrator Dr. Tran. Patient states that about a week ago he noticed that his left foot which has had a history of crush injury developed redness swelling and pain around the ball of the foot. He went in to see his primary care Dr. Forbes who ordered x-ray and some labs and then sent him to see Dr. Tran. The x-ray showed some gas in the soft tissue. Dr. Tran saw him today and sent him to the ED for IV antibiotics and likely surgical I&D. Patient denies fever chills nausea vomiting. Sodium was noted to be low at 126 with a low chloride and an elevated BUN and creatinine as well. Anemia present. 12/30 Patient status post surgery with I&D of the left first metatarsal and bone biopsy. Patient feeling little drowsy after surgery but otherwise no complaints Review of Systems: denies headache/fever/chills/nausea/vomiting/chest or abdominal pain/cough/dyspnea/diarrhea. Otherwise see above. Constitutional Vitals: Vital Signs Temp Pulse Resp BP Pulse Ox O2 Del Method 97.6 F 87 20 127/62 98 12/30/21 07:21 12/30/21 03:26 12/30/21 07:21 12/30/21 07:21 12/30/21 07:21 12/30/21 07:21 Period Temp Pulse Resp BP Sys/Franco Pulse Ox O2 Del Method O2 Flow Rate Last 24 Hr 97.4 F-98.8 F 67-88 18-20 91-135/51-74 93-100 Room Air-Room Air Intake and Output 12/29/21 12/30/21 12/30/21 21:59 05:59 13:59 Intake Total 2050 100 Output Total 1225 1500 Balance 825 -1400 Weight 65.589 kg Intake & Output: Intake & Output 12/29/21 12/30/21 12/30/21 21:59 05:59 13:59 Intake Total 205 100 Output Total 1225 1500 Balance 825 -1400 Weight 65.589 kg Intake: IV 1150 100 Sodium Chloride 0.9% 1,000 ml @ 1000 Wide Open IV BOLUS ONE Rx#: [id number] Zosyn 3.375 gm In Dextrose 5% 50 100 in Water 50 ml @ 100 mls/hr IV Q6H [facility] Rx#:[id number] Tube Feeding 750 GI Tube Flush 150 Output: Void Amount 1225 1500 Other: Urine Appearance Clear Clear Urine Color Yellow Bright Yellow Pale Urine Odor Normal Stool Size Small Small Stool Color Brown Brown Stool Consistency Formed # Bowel Movements 1 1 Exam: General: Alert, Awake, No acute Distress Eyes/N/T: EOMI, Head/Neck: neck supple, CV: RRR, 2/6SM, Pulm: Clear b/l, no wheezing/rhonchi/rales Abd: soft, nontender, +BS x4 Ext: no clubbing/cyanosis, LLE 2+ edema and RLE 3+ edema with erythema/swelling/tenderness Neuro: Alert, no focal deficits, moves all extremities, Skin: warm/dry OBJ DATA Labs CBC & Chem 7: 12/30/21 05:43 12/30/21 05:42 Labs: Abnormal Lab Results 12/30/21 12/29/21 12/29/21 05:43 16:05 16:05 RBC 3.11 L Hgb 9.6 L Hct 29.9 L POC Hct RDW 14.6 H Neut % (Auto) Lymph % (Auto) 7.3 L Lymph # (Auto) 0.47 L POC Sodium Sodium POC Chloride Chloride POC BUN BUN Creatinine POC Creatinine Glucose POC Glucose Osmolality POC WB Ioniz Calcium Albumin/Globulin Ratio Urine Glucose (UA) >=500 A Ur Random Creatinine 21.2 L 12/29/21 12/29/21 12/29/21 15:13 15:12 15:12 RBC Hgb Hct POC Hct 28.0 L RDW Neut % (Auto) Lymph % (Auto) Lymph # (Auto) POC Sodium 126 L Sodium 125 L POC Chloride 87 L Chloride 87 L POC BUN 30 H BUN 31 H Creatinine 1.4 H POC Creatinine 1.5 H Glucose 117 H POC Glucose 120 H Osmolality 279 L POC WB Ioniz Calcium 1.12 L Albumin/Globulin Ratio 0.9 L Urine Glucose (UA) Ur Random Creatinine 12/29/21 15:12 RBC 2.86 L Hgb 8.9 L Hct 26.9 L POC Hct RDW Neut % (Auto) 78.9 H Lymph % (Auto) 6.6 L Lymph # (Auto) 0.53 L POC Sodium Sodium POC Chloride Chloride POC BUN BUN Creatinine POC Creatinine Glucose POC Glucose Osmolality POC WB Ioniz Calcium Albumin/Globulin Ratio Urine Glucose (UA) Ur Random Creatinine Meds: Medications Acetaminophen (Acetaminophen 325 Mg Tablet) 650 mg PO Q6HP PRN; Protocol PRN Reason: Per Pain Protocol/Fever > 101 Albuterol/Ipratropium (Ipratropium/Albuterol 3 Ml Ampul.Neb) 3 ml NEB Q4HP PRN PRN Reason: Shortness Of Breath Atorvastatin Calcium (Atorvastatin 40 Mg Tablet) 40 mg PO QDAY REILLY Cilostazol (Cilostazol 100 Mg Tablet) 50 mg PO BIDAC REILLY Dextrose (Dextrose 50% 50 Ml Vial) 0 ml IV UD PRN PRN Reason: Per Sliding Scale Diagnostic Test (Pha) (Accu-Chek 1 Each Strip) 1 each FS ACHS [facility] Last Admin: 12/30/21 07:13 Dose: 1 each Docusate Sodium (Docusate Sodium 100 Mg Capsule) 100 mg PO BID [facility] Last Admin: 12/29/21 21:48 Dose: 100 mg Duloxetine HCl (Duloxetine 30 Mg Capsule) 30 mg PO QHS [facility] Last Admin: 12/29/21 21:48 Dose: 30 mg Escitalopram Oxalate (Escitalopram 10 Mg Tablet) 10 mg PO QDAY [facility] Glucose (Dextrose 31 Gm Oral.Susp) 15 gm PO PRN PRN PRN Reason: Hypoglycemia Heparin Sodium (Porcine) (Heparin 5,000 Unit/Ml Vial) 5,000 unit SQ Q12 [facility] Last Admin: 12/29/21 21:55 Dose: Not Given Hydromorphone HCl (Hydromorphone 0.5 Mg/0.5 Ml Syringe) 0.5 - 1 mg IV Q2HP PRN; Protocol PRN Reason: Per Pain Protocol Last Admin: 12/30/21 03:31 Dose: 1 mg Hydroxyzine HCl (Hydroxyzine 25 Mg Tablet) 25 mg PO BIDP PRN PRN Reason: anxiety Potassium Chloride 40 meq/ (Dextrose) 520 mls @ 130 mls/hr IV UD PRN PRN Reason: Potassium < 3 Magnesium Sulfate (Magnesium Sulfate) 2 gm in 50 mls @ 50 mls/hr IV UD PRN PRN Reason: Magnesium </= 1.6 Sodium Chloride (Sodium Chloride 0.9%) 1,000 mls @ 75 mls/hr IV .[id number] [facility] Stop: 12/30/21 07:53 Last Admin: 12/29/21 19:02 Dose: 75 mls/hr Piperacillin Sod/Tazobactam (Sod 3.375 gm/ Dextrose) 50 mls @ 100 mls/hr IV Q6H [facility]; Protocol Last Admin: 12/30/21 07:05 Dose: 100 mls/hr Insulin Human Lispro (Insulin Lispro 1 Unit/0.01 Ml Unit) 0 unit SQ ACHS [facility]; Protocol Last Admin: 12/30/21 07:14 Dose: Not Given Labetalol HCl (Labetalol 5 Mg/Ml Ml) 0 mg IV Q2HP PRN PRN Reason: Hypertension Lorazepam (Lorazepam 1 Mg Tablet) 1 mg PO QHS [facility] Non-Formulary Medication (Morphine [Ms Contin]) 60 mg PO BID [facility] Ondansetron HCl (Ondansetron 4 Mg/2 Ml Vial) 4 mg IV Q4HP PRN PRN Reason: Nausea And Vomiting Oxycodone HCl (Oxycodone Hcl 5 Mg Tablet) 10 mg PO Q4-6HP PRN; Protocol PRN Reason: Per Pain Protocol Polyethylene Glycol (Polyethylene Glycol 3350 17 Gm Packet) 17 gm PO DAILYP PRN PRN Reason: Constipation Potassium Chloride (Potassium Chloride 20 Meq Tablet) 40 meq PO UD PRN PRN Reason: Potssium is 3-3.5 Potassium Chloride (Potassium Chloride 20 Meq Tablet) 40 meq PO UD PRN PRN Reason: Potassium < 3 Pregabalin (Pregabalin 75 Mg Capsule) 75 mg PO QHS [facility] Pregabalin (Pregabalin 150 Mg Capsule) 150 mg PO QHS PRN PRN Reason: pain Prochlorperazine (Prochlorperazine 10 Mg Tablet) 5 mg PO BIDP PRN PRN Reason: Nausea Senna (Sennosides 1 Tablet) 2 tab PO DAILYP PRN PRN Reason: Constipation Sodium Chloride (0.9 % Sodium Chloride 10 Ml Syringe) 10 ml IV Q8 [facility] Last Admin: 12/30/21 06:25 Dose: Not Given A/P Narrative A/P Narrative: A: *Left foot infection: s/p I&D (12/30) *Hyponatremia: Improved. *MARYANN on CKD III: Likely prerenal, improving with IVF *Anemia, chronic: *PVD: On asa/?plavix/?cilostazol, statin *DM w/neuropathy: *HTN/HLD: on acei *Depression/anxiety: P: -IV abx -Dr. Tran for podiatry -IVF f/u renal, monitor sodium -cont asa -Continue statin -hold ACEI for MARYANN -PT/OT -ppx: Heparin Time Spent With Patient Time: Total time spent is greater than 50% in coordination of care (as documented) at patient's floor/unit and/or counseling patient: Total time spent with greater than 50% in coordination of care (as documented) at patient's floor/unit and/or counseling patient:: 25 - 35 minutes
[2021-12-30] MEDS: CILOSTAZOL 100 MG TABLET PO SCH ×2 (07:49→17:20)
[2021-12-30] MEDS ORDERED: SCOPOLAMINE 1 PATCH PATCH TOPICAL PRN (07:50)
--- NOTE | 2021-12-30 07:52 | EKG ---
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
[2021-12-30 08:00] LABS: ALT/SGPT 11 U/L (<40); AST/SGOT 16 U/L (<40); Albumin 3.1 gm/dL (3.2-5.2); Albumin/Globulin Ratio 0.9 (1.0-2.3); Alkaline Phosphatase 85 U/L (39-117); Bilirubin,Direct < 0.2 mg/dL (0-0.3); Bilirubin,Total < 0.2 mg/dL (0.1-1.0); Blood Urea Nitrogen 25 mg/dL (8-23); Calcium 9.1 mg/dL (8.6-10.4); Carbon Dioxide 28 mmol/L (22-30); Chloride 96 mmol/L (96-108); Globulin 3.6 gm/dL (2.2-3.7); Glomerular Filtration Rate 60; Glucose 106 mg/dL (70-105); Lactate Dehydrogenase 165 U/L (135-225); Phosphorous 4.6 mg/dL (2.5-4.5); Triglycerides 64 mg/dL (<150); Uric Acid 3.4 mg/dL (2.5-8.0)
[2021-12-30] MEDS ORDERED: KETAMINE 50 MG/ML Syringe (ANEST) IV ONE (08:43)
[2021-12-30] MEDS ORDERED: PROPOFOL 200 MG/20 ML VIAL IV ONE (08:43)
[2021-12-30] MEDS ORDERED: GLYCOPYRROLATE 0.2 MG/ML VIAL IV ONE (08:43)
[2021-12-30] MEDS ORDERED: MIDAZOLAM 2 MG/2 ML VIAL ONE (08:43)
[2021-12-30] MEDS ORDERED: ONDANSETRON 4 MG/2 ML VIAL ONE (08:43)
[2021-12-30] MEDS ORDERED: DEXAMETHASONE 10 MG/ML VIAL ONE (08:43)
[2021-12-30] MEDS ORDERED: METHOCARBAMOL 1,000 MG/10 ML VIAL IV PRN (09:06)
[2021-12-30] MEDS ORDERED: NALOXONE HCL 0.4 MG/ML VIAL IV PRN (09:06)
[2021-12-30] MEDS ORDERED: MEPERIDINE 25 MG/ML VIAL IV PRN (09:06)
[2021-12-30] MEDS ORDERED: IPRATROPIUM/ALBUTEROL 3 ML AMPUL.NEB NEB PRN (09:06)
[2021-12-30] MEDS ORDERED: LACTATED RINGERS 250 ML IV PRN (09:06)
[2021-12-30] MEDS ORDERED: ONDANSETRON 4 MG/2 ML VIAL IV PRN (09:06)
[2021-12-30] MEDS ORDERED: PROMETHAZINE 25 MG/ML VIAL IV PRN (09:06)
[2021-12-30] MEDS ORDERED: LABETALOL 5 MG/ML ML IV PRN (09:06)
[2021-12-30] MEDS ORDERED: LACTATED RINGERS 1,000 ML IV SCH (09:15)
--- NOTE | 2021-12-30 09:24 | Brief Operative Note ---
Brief Operative Note Date of procedure: 12/30/21 Pre-op diagnosis: cellulitis left foot Post-op diagnosis: same Procedure: Incision and drainage left first metatarsal Grafts/Implants: No Anesthesia: MAC Findings: purulent drainage Complications: none Surgeon: Jaison Tran Estimated blood loss (cc): 40 Specimens Removed/Pathology: other (deep tissue culture) Condition: stable Disposition: floor
[2021-12-30] MEDS: fentaNYL 100 MCG/2 ML VIAL IV PRN ×2 (09:28→09:34)
--- NOTE | 2021-12-30 09:54 | Operative Note ---
DATE OF OPERATION: 12/30/2021 DATE OF PROCEDURE: 12/30/2021 PREOPERATIVE DIAGNOSIS: Cellulitis, left foot. POSTOPERATIVE DIAGNOSIS: Cellulitis, left foot. PROCEDURE: Incision and drainage, left first metatarsal. SURGEON: Jaison Tran DPM IMPLANTS: None. ANESTHESIA: MAC. COMPLICATIONS: None. BLOOD LOSS: 40 mL. SPECIMEN: Deep tissue culture. CONDITION: Stable. DISPOSITION: Floor. PROCEDURE IN DETAIL: The patient was brought to the operating room and placed on the operating table in supine position. The left lower extremity was scrubbed, prepped and draped in the usual aseptic fashion. Monitored anesthesia care initiated. The left lower extremity was seen to be red, hot, and swollen with purulent drainage under the first metatarsal. This area was opened with sharp dissection. The necrotic tissue was debrided. The area was irrigated, packed with iodine-soaked 1-inch packing and dressed. The wound was packed open and the area was dressed with 4 x 4 gauze, Kerlix, and Sunny wrap. The patient tolerated the procedure and anesthesia well and was transferred to postoperative care unit with vital signs stable and the vascular status intact to his foot. He will be transferred to the floor for continued antibiotic therapy. [id number]:[email or web address] Job ID: [id number] Doc ID: [id number] Jaison Tran DPM
[2021-12-30] MEDS: morphine 30 MG TAB.SR.12H PO SCH ×3 (10:30→19:13)
[2021-12-30] MEDS: ESCITALOPRAM 10 MG TABLET PO SCH (10:30)
[2021-12-30] MEDS: ATORVASTATIN 40 MG TABLET PO SCH (10:31)
[2021-12-30] MEDS: DOCUSATE SODIUM 100 MG CAPSULE PO SCH ×2 (10:31→20:51)
[2021-12-30] MEDS: HEPARIN 5,000 UNIT/ML VIAL SQ SCH ×2 (10:31→20:51)
[2021-12-30] MEDS: oxyCODONE HCL 5 MG TABLET PO PRN (10:40)
[2021-12-30] MEDS: LORazepam 1 MG TABLET PO SCH (20:51)
[2021-12-30] MEDS: DULoxetine 30 MG CAPSULE PO SCH (20:51)
[2021-12-30] MEDS: PREGABALIN 75 MG CAPSULE PO SCH (20:51)
[2021-12-31] MEDS: PIPERACILLIN SODIUM/TAZOBACTAM 3.375 GM in DEXTROSE 5% IN WATER 50 ML IV SCH ×4 (00:05→17:14)
[2021-12-31] MEDS: oxyCODONE HCL 5 MG TABLET PO PRN ×2 (00:06→15:47)
[2021-12-31] MEDS: 0.9 % SODIUM CHLORIDE 10 ML SYRINGE IV SCH ×3 (05:54→20:17)
[2021-12-31 06:46] LABS: Basophils # (Auto) 0.02 K/mcL (0.00-0.30); Basophils % (Auto) 0.3 % (0.0-2.0); Eosinophils # (Auto) 0.08 K/mcL (0.00-0.70); Eosinophils % (Auto) 1.1 % (0.0-7.0); Hematocrit 27.1 % (40.1-51.0); Hemoglobin 8.8 g/dL (13.7-17.5); Lymphocytes # (Auto) 0.72 K/mcL (1.50-4.80); Lymphocytes % (Auto) 9.6 % (15.5-49.0); Mean Cell Volume 97.1 fL (80.0-100.0); Mean Corpuscular HGB Conc 32.5 g/dL (31.0-36.0); Mean Platelet Volume 10.1 fL (8.8-12.5); Monocytes # (Auto) 0.69 K/mcL (0.10-0.90); Monocytes % (Auto) 9.2 % (1.0-12.0); Neutrophils % (Auto) 79.5 % (38.0-78.0); Platelet Count 193 K/mcL (140-440); RBC 2.79 M/mcL (4.63-6.08); Red Cell Distribution Width 14.5 % (11.5-14.5); WBC 7.5 K/mcL (4.5-11.0)
[2021-12-31 07:13] LABS: ALT/SGPT 9 U/L (<40); AST/SGOT 11 U/L (<40); Albumin 2.6 gm/dL (3.2-5.2); Albumin/Globulin Ratio 0.7 (1.0-2.3); Alkaline Phosphatase 69 U/L (39-117); Bilirubin,Direct < 0.2 mg/dL (0-0.3); Bilirubin,Total < 0.2 mg/dL (0.1-1.0); Blood Urea Nitrogen 24 mg/dL (8-23); Calcium 8.9 mg/dL (8.6-10.4); Carbon Dioxide 28 mmol/L (22-30); Chloride 98 mmol/L (96-108); Globulin 3.5 gm/dL (2.2-3.7); Glomerular Filtration Rate 74; Glucose 122 mg/dL (70-105); Lactate Dehydrogenase 132 U/L (135-225); Phosphorous 3.6 mg/dL (2.5-4.5); Triglycerides 79 mg/dL (<150); Uric Acid 2.7 mg/dL (2.5-8.0)
[2021-12-31] MEDS: CILOSTAZOL 100 MG TABLET PO SCH ×2 (07:23→17:13)
[2021-12-31] MEDS: morphine 30 MG TAB.SR.12H PO SCH ×2 (07:23→20:10)
[2021-12-31] MEDS: INSULIN LISPRO 1 UNIT/0.01 ML UNIT SQ SCH ×4 (07:29→23:12)
[2021-12-31] MEDS: HEPARIN 5,000 UNIT/ML VIAL SQ SCH ×2 (08:43→20:13)
[2021-12-31] MEDS: ATORVASTATIN 40 MG TABLET PO SCH (08:44)
[2021-12-31] MEDS: ASPIRIN 81 MG TAB.CHEW PO SCH (08:44)
[2021-12-31] MEDS: DOCUSATE SODIUM 100 MG CAPSULE PO SCH ×2 (08:44→20:15)
[2021-12-31] MEDS: ESCITALOPRAM 10 MG TABLET PO SCH (08:44)
--- NOTE | 2021-12-31 15:05 | Internal Med Progress Note ---
SUBJECTIVE Subjective Patient information: Note initiated : 12/31/21 at 3:03 pm Service Date, if different from initiated Date: [] Patient: Jt Goodrich 71 y/o M admitted on 12/29/[address] yash waters, foot pain. Chief Complaint: [] Interval history: Patient presents the ED with left foot infection for the past week. He was sent in by his hammer heater Dr. Tran. Patient states that about a week ago he noticed that his left foot which has had a history of crush injury developed redness swelling and pain around the ball of the foot. He went in to see his primary care Dr. Forbes who ordered x-ray and some labs and then sent him to see Dr. Tran. The x-ray showed some gas in the soft tissue. Dr. Tran saw him today and sen t him to the ED for IV antibiotics and likely surgical I&D. Patient denies fever chills nausea vomiting. Sodium was noted to be low at 126 with a low chloride and an elevated BUN and creatinine as well. Anemia present. 12/30 Patient status post surgery with I&D of the left first metatarsal and bone biopsy. Patient feeling little drowsy after surgery but otherwise no complaints 12/31: There was no major overnight events. Low grade fever with Tmax 37.7. Patient denies any left foot pain at the moment. Denies any fever or chills or diaphoresis. Continue Zosyn for left foot cellulitis. Continue to monitor for culture results. Continue narcotics for symptoms management. Pending physical and occupational therapies. Constitutional Vitals: Vital Signs Temp Pulse Resp BP Pulse Ox O2 Del Method O2 Flow Rate 37.2 C 64 16 158/84 92 5 12/31/21 12:00 12/31/21 03:39 12/31/21 12:00 12/31/21 12:00 12/31/21 12:00 12/31/21 12:00 12/30/21 09:26 Period Temp Pulse Resp BP Sys/Franco Pulse Ox O2 Del Method O2 Flow Rate Last 24 Hr 36.6 C-37.7 C 57-72 16-20 102-158/54-87 92-97 Room Air-Room Air Intake and Output 12/31/21 12/31/21 12/31/21 05:59 13:59 21:59 Intake Total 170 580 Output Total 625 Balance 170 -45 Intake & Output: Intake & Output 12/31/21 12/31/21 12/31/21 05:59 13:59 21:59 Intake Total 170 580 Output Total 625 Balance 170 -45 Intake: IV 50 100 Zosyn 3.375 gm In Dextrose 5% 50 100 in Water 50 ml @ 100 mls/hr IV Q6H [facility] Rx#:[id number] Oral 120 480 Tube Feeding 0 Output: Void Amount 625 Other: Meal Lunch Percent of Meal Consumed 75% Feeding Ability Assist with Tray Set Up Urine Appearance Clear Urine Color Bright Yellow Urine Odor Normal Stool Size Moderate Stool Color Brown Stool Consistency Dry and Hard # Voids 1 # Bowel Movements 1 Head Head exam: Present atraumatic and normal inspection Eye Eye exam: Present normal appearance ENT ENT exam: Present mucous membranes moist, normal exam and normal external ear exam Neck Neck exam: Present normal inspection Respiratory Respiratory exam: Present normal respiratory exam Cardiovascular Cardiovascular exam: Present normal rate and rhythm GI/Abdominal GI/Abdominal exam: Present normal bowel sounds Additional comments: PEG tube in place Extremities Exam Extremities exam: Absent full ROM or normal inspection Additional comments: Left foot covered by surgical dressing Back Exam Back exam: Present normal inspection Neurological Exam Neurological exam: Present alert and oriented X3 Skin Skin exam: Present intact and warm OBJ DATA Labs CBC & Chem 7: 12/31/21 05:50 12/31/21 05:49 Labs: Abnormal Lab Results 12/31/21 12/31/21 12/30/21 05:50 05:49 05:43 RBC 2.79 L 3.11 L Hgb 8.8 L 9.6 L Hct 27.1 L 29.9 L POC Hct RDW 14.6 H Neut % (Auto) 79.5 H Lymph % (Auto) 9.6 L 7.3 L Lymph # (Auto) 0.72 L 0.47 L POC Sodium Sodium Potassium POC Chloride Chloride Anion Gap 7.0 L POC BUN BUN 24 H Creatinine POC Creatinine Glucose 122 H POC Glucose Osmolality POC WB Ioniz Calcium Phosphorus Lactate Dehydrogenase 132 L Albumin 2.6 L Albumin/Globulin Ratio 0.7 L Urine Glucose (UA) Ur Random Creatinine 12/30/21 12/29/21 12/29/21 05:42 16:05 16:05 RBC Hgb Hct POC Hct RDW Neut % (Auto) Lymph % (Auto) Lymph # (Auto) POC Sodium Sodium Potassium 5.3 H POC Chloride Chloride Anion Gap POC BUN BUN 25 H Creatinine POC Creatinine Glucose 106 H POC Glucose Osmolality POC WB Ioniz Calcium Phosphorus 4.6 H Lactate Dehydrogenase Albumin 3.1 L Albumin/Globulin Ratio 0.9 L Urine Glucose (UA) >=500 A Ur Random Creatinine 21.2 L 12/29/21 12/29/21 12/29/21 15:13 15:12 15:12 RBC Hgb Hct POC Hct 28.0 L RDW Neut % (Auto) Lymph % (Auto) Lymph # (Auto) POC Sodium 126 L Sodium 125 L Potassium POC Chloride 87 L Chloride 87 L Anion Gap POC BUN 30 H BUN 31 H Creatinine 1.4 H POC Creatinine 1.5 H Glucose 117 H POC Glucose 120 H Osmolality 279 L POC WB Ioniz Calcium 1.12 L Phosphorus Lactate Dehydrogenase Albumin Albumin/Globulin Ratio 0.9 L Urine Glucose (UA) Ur Random Creatinine 12/29/21 15:12 RBC 2.86 L Hgb 8.9 L Hct 26.9 L POC Hct RDW Neut % (Auto) 78.9 H Lymph % (Auto) 6.6 L Lymph # (Auto) 0.53 L POC Sodium Sodium Potassium POC Chloride Chloride Anion Gap POC BUN BUN Creatinine POC Creatinine Glucose POC Glucose Osmolality POC WB Ioniz Calcium Phosphorus Lactate Dehydrogenase Albumin Albumin/Globulin Ratio Urine Glucose (UA) Ur Random Creatinine Meds: Medications Acetaminophen (Acetaminophen 325 Mg Tablet) 650 mg PO Q6HP PRN; Protocol PRN Reason: Per Pain Protocol/Fever > 101 Albuterol/Ipratropium (Ipratropium/Albuterol 3 Ml Ampul.Neb) 3 ml NEB Q4HP PRN PRN Reason: Shortness Of Breath Aspirin (Aspirin 81 Mg Tab.Chew) 81 mg PO DAILY [facility] Last Admin: 12/31/21 08:44 Dose: 81 mg Atorvastatin Calcium (Atorvastatin 40 Mg Tablet) 40 mg PO QDAY [facility] Last Admin: 12/31/21 08:44 Dose: 40 mg Cilostazol (Cilostazol 100 Mg Tablet) 50 mg PO BIDAC [facility] Last Admin: 12/31/21 07:23 Dose: 50 mg Dextrose (Dextrose 50% 50 Ml Vial) 0 ml IV UD PRN PRN Reason: Per Sliding Scale Diagnostic Test (Pha) (Accu-Chek 1 Each Strip) 1 each FS ACHS [facility] Last Admin: 12/31/21 11:25 Dose: 1 each Docusate Sodium (Docusate Sodium 100 Mg Capsule) 100 mg PO BID [facility] Last Admin: 12/31/21 08:44 Dose: 100 mg Duloxetine HCl (Duloxetine 30 Mg Capsule) 30 mg PO QHS [facility] Last Admin: 12/30/21 20:51 Dose: 30 mg Escitalopram Oxalate (Escitalopram 10 Mg Tablet) 10 mg PO QDAY [facility] Last Admin: 12/31/21 08:44 Dose: 10 mg Glucose (Dextrose 31 Gm Oral.Susp) 15 gm PO PRN PRN PRN Reason: Hypoglycemia Heparin Sodium (Porcine) (Heparin 5,000 Unit/Ml Vial) 5,000 unit SQ Q12 [facility] Last Admin: 12/31/21 08:43 Dose: 5,000 unit Hydromorphone HCl (Hydromorphone 0.5 Mg/0.5 Ml Syringe) 0.5 - 1 mg IV Q2HP PRN; Protocol PRN Reason: Per Pain Protocol Last Admin: 12/30/21 20:51 Dose: 0.5 mg Hydroxyzine HCl (Hydroxyzine 25 Mg Tablet) 25 mg PO BIDP PRN PRN Reason: anxiety Potassium Chloride 40 meq/ (Dextrose) 520 mls @ 130 mls/hr IV UD PRN PRN Reason: Potassium < 3 Magnesium Sulfate (Magnesium Sulfate) 2 gm in 50 mls @ 50 mls/hr IV UD PRN PRN Reason: Magnesium </= 1.6 Piperacillin Sod/Tazobactam (Sod 3.375 gm/ Dextrose) 50 mls @ 100 mls/hr IV Q6H [facility]; Protocol Last Infusion: 12/31/21 12:14 Dose: Infused Insulin Human Lispro (Insulin Lispro 1 Unit/0.01 Ml Unit) 0 unit SQ ACHS [facility]; Protocol Last Admin: 12/31/21 11:39 Dose: 4 unit Labetalol HCl (Labetalol 5 Mg/Ml Ml) 0 mg IV Q2HP PRN PRN Reason: Hypertension Lorazepam (Lorazepam 1 Mg Tablet) 1 mg PO QHS [facility] Last Admin: 12/30/21 20:51 Dose: 1 mg Morphine Sulfate (Morphine 30 Mg Tab.Sr.12h) 60 mg PO BID [facility] Last Admin: 12/31/21 07:23 Dose: 60 mg Ondansetron HCl (Ondansetron 4 Mg/2 Ml Vial) 4 mg IV Q4HP PRN PRN Reason: Nausea And Vomiting Oxycodone HCl (Oxycodone Hcl 5 Mg Tablet) 10 mg PO Q4-6HP PRN; Protocol PRN Reason: Per Pain Protocol Last Admin: 12/31/21 00:06 Dose: 10 mg Polyethylene Glycol (Polyethylene Glycol 3350 17 Gm Packet) 17 gm PO DAILYP PRN PRN Reason: Constipation Potassium Chloride (Potassium Chloride 20 Meq Tablet) 40 meq PO UD PRN PRN Reason: Potssium is 3-3.5 Potassium Chloride (Potassium Chloride 20 Meq Tablet) 40 meq PO UD PRN PRN Reason: Potassium < 3 Pregabalin (Pregabalin 75 Mg Capsule) 75 mg PO QHS [facility] Last Admin: 12/30/21 20:51 Dose: 75 mg Prochlorperazine (Prochlorperazine 10 Mg Tablet) 5 mg PO BIDP PRN PRN Reason: Nausea Scopolamine (Scopolamine 1 Patch Patch) 1 patch TOPICAL PREOP PRN PRN Reason: Nausea And Vomiting Senna (Sennosides 1 Tablet) 2 tab PO DAILYP PRN PRN Reason: Constipation Sodium Chloride (0.9 % Sodium Chloride 10 Ml Syringe) 10 ml IV Q8 [facility] Last Admin: 12/31/21 05:54 Dose: 10 ml A/P Assessment and plan (1) Cellulitis of left foot: Status: Acute (2) Type 2 diabetes mellitus with diabetic chronic kidney disease: Status: Chronic Qualifiers: 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 home 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 Chronic kidney disease stage: stage 2 (mild) Qualified Code(s): E11.22 - Type 2 diabetes mellitus with diabetic chronic kidney disease; N18.2 - Chronic kidney disease, stage 2 (mild); 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 Left foot cellulitis: s/p I&D left first metatarsal by Dr. Tran, post surgical management according to surgical team Wound and blood cultures no growth to date cbc w/ auto diff daily to trend WBC Zosyn MS contin Oxycodone PRN Dilaudid IV PRN Physical therapy Occupational therapy 2. T2DM with diabetic neuropathy and nephropathy: HgA1c Hold oral hypoglycemics Insulin Lispro SSI AC HS Accu Chek AC HS Hypoglycemia protocol Diabetic diet Lyrica BMP daily to trend kidney functions Avoid nephrotoxic agents 3. Essential hypertension: Lisinopril Hydralazine 10mg IV q4-6hr PRN SBP>=180 and/or DBP>=110mmHg 4. Dyslipidemia: Continue statin therapy 5. Peripheral vascular disease: Statin Cilostazol Plavix Aspirin 6. Anemia, normocytic normochromic: cbc w/ auto diff daily to trend H/H GI ppx: not currently indicated DVT ppx: Heparin Code status: Full Prognosis: Stable Disposition: Disposition; PT OT Time Spent With Patient Time: Total time spent is greater than 50% in coordination of care (as documented) at patient's floor/unit and/or counseling patient: Total time spent with greater than 50% in coordination of care (as documented) at patient's floor/unit and/or counseling patient:: 35 - 50 minutes
[2021-12-31] MEDS ORDERED: hydrALAZINE 20 MG/ML VIAL IV PRN (15:14)
[2021-12-31] MEDS: hydrOXYzine 25 MG TABLET PO PRN (15:52)
[2021-12-31] MEDS: LORazepam 1 MG TABLET PO SCH (20:10)
[2021-12-31] MEDS: PREGABALIN 75 MG CAPSULE PO SCH (20:12)
[2021-12-31] MEDS: DULoxetine 30 MG CAPSULE PO SCH (20:12)
[2022-01-01] MEDS: PIPERACILLIN SODIUM/TAZOBACTAM 3.375 GM in DEXTROSE 5% IN WATER 50 ML IV SCH ×5 (00:10→23:37)
[2022-01-01] MEDS: 0.9 % SODIUM CHLORIDE 10 ML SYRINGE IV SCH ×3 (06:03→20:36)
[2022-01-01] MEDS: oxyCODONE HCL 5 MG TABLET PO PRN ×3 (06:09→16:32)
[2022-01-01 06:27] LABS: Basophils # (Auto) 0.03 K/mcL (0.00-0.30); Basophils % (Auto) 0.5 % (0.0-2.0); Eosinophils # (Auto) 0.17 K/mcL (0.00-0.70); Eosinophils % (Auto) 2.7 % (0.0-7.0); Hematocrit 27.6 % (40.1-51.0); Hemoglobin 8.9 g/dL (13.7-17.5); Lymphocytes # (Auto) 0.84 K/mcL (1.50-4.80); Lymphocytes % (Auto) 13.5 % (15.5-49.0); Mean Cell Volume 95.5 fL (80.0-100.0); Mean Corpuscular HGB Conc 32.2 g/dL (31.0-36.0); Mean Platelet Volume 10.3 fL (8.8-12.5); Monocytes # (Auto) 0.64 K/mcL (0.10-0.90); Monocytes % (Auto) 10.3 % (1.0-12.0); Neutrophils % (Auto) 72.5 % (38.0-78.0); Platelet Count 208 K/mcL (140-440); RBC 2.89 M/mcL (4.63-6.08); Red Cell Distribution Width 14.4 % (11.5-14.5); WBC 6.2 K/mcL (4.5-11.0)
[2022-01-01 06:54] LABS: Blood Urea Nitrogen 17 mg/dL (8-23); Calcium 9.1 mg/dL (8.6-10.4); Carbon Dioxide 26 mmol/L (22-30); Chloride 99 mmol/L (96-108); Glomerular Filtration Rate 74; Glucose 110 mg/dL (70-105)
[2022-01-01 06:55] LABS: Phosphorous 3.8 mg/dL (2.5-4.5)
[2022-01-01] MEDS: CILOSTAZOL 100 MG TABLET PO SCH ×2 (07:29→16:34)
[2022-01-01] MEDS: INSULIN LISPRO 1 UNIT/0.01 ML UNIT SQ SCH ×4 (07:30→20:36)
[2022-01-01] MEDS: ASPIRIN 81 MG TAB.CHEW PO SCH (09:39)
[2022-01-01] MEDS: CLOPIDOGREL 75 MG TABLET PO SCH (09:39)
[2022-01-01] MEDS: morphine 30 MG TAB.SR.12H PO SCH ×2 (09:39→20:35)
[2022-01-01] MEDS: ATORVASTATIN 40 MG TABLET PO SCH (09:40)
[2022-01-01] MEDS: LISINOPRIL 10 MG TABLET PO SCH (09:40)
[2022-01-01] MEDS: ESCITALOPRAM 10 MG TABLET PO SCH (09:40)
[2022-01-01] MEDS: HEPARIN 5,000 UNIT/ML VIAL SQ SCH ×2 (09:40→20:35)
[2022-01-01] MEDS: DOCUSATE SODIUM 100 MG CAPSULE PO SCH ×2 (09:40→20:35)
--- NOTE | 2022-01-01 12:21 | Internal Med Progress Note ---
SUBJECTIVE Subjective Patient information: Note initiated : 01/01/22 at 12:16 pm Service Date, if different from initiated Date: [] Patient: Jt Goodrich 71 y/o M admitted on 12/29/[address] aysh waters, foot pain. Chief Complaint: [] Interval history: Patient presents the ED with left foot infection for the past week. 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 Tran. Patient states that about a week ago he noticed that his left foot which has had a history of crush injury developed redness swelling and pain around the ball of the foot. He went in to see his primary care Dr. Forbes who ordered x-ray and some labs and then sent him to see Dr. Tran. The x-ray showed some gas in the soft tissue. Dr. Tran saw him today and se nt him to the ED for IV antibiotics and likely surgical I&D. Patient denies fever chills nausea vomiting. Sodium was noted to be low at 126 with a low chloride and an elevated BUN and creatinine as well. Anemia present. 12/30 Patient status post surgery with I&D of the left first metatarsal and bone biopsy. Patient feeling little drowsy after surgery but otherwise no complaints 12/31: There was no major overnight events. Low grade fever with Tmax 37.7. Patient denies any left foot pain at the moment. Denies any fever or chills or diaphoresis. Continue Zosyn for left foot cellulitis. Continue to monitor for culture results. Continue narcotics for symptoms management. Pending physical and occupational therapies. 01/01: Afebrile overnight. Blood and wound cultures no growth to date. Patient denies any left foot pain at the moment. Denies any fever or chills or diaphoresis. Continue Zosyn for left foot cellulitis. Continue to monitor for culture results. Continue narcotics for symptoms management. Pending physical and occupational therapies. Constitutional Vitals: Vital Signs Temp Pulse Resp BP Pulse Ox O2 Del Method O2 Flow Rate 36.7 C 70 16 129/70 98 5 01/01/22 07:45 01/01/22 07:45 01/01/22 07:45 01/01/22 07:45 01/01/22 07:45 01/01/22 07:45 12/30/21 09:26 Period Temp Pulse Resp BP Sys/Franco Pulse Ox O2 Del Method O2 Flow Rate Last 24 Hr 36.7 C-37.1 C 59-70 16-20 108-129/47-70 93-99 Room Air-Room Air Intake and Output 12/31/21 01/01/22 01/01/22 21:59 05:59 13:59 Intake Total 1010 50 400 Output Total 0 1 430 Balance 1010 49 -30 Weight 74.531 kg Intake & Output: Intake & Output 12/31/21 01/01/22 01/01/22 21:59 05:59 13:59 Intake Total 1010 50 400 Output Total 0 1 430 Balance 1010 49 -30 Weight 74.531 kg Intake: IV 50 50 100 Zosyn 3.375 gm In Dextrose 5% 50 50 50 in Water 50 ml @ 100 mls/hr IV Q6H [facility] Rx#:[id number] Oral 960 300 Tube Feeding 0 0 Output: Void Amount 430 # of times incontinent of urine 0 1 Other: Meal Dinner Percent of Meal Consumed 75% Urine Appearance Clear Urine Color Yellow # Voids 1 2 2 Head Head exam: Present atraumatic and normal inspection Eye Eye exam: Present normal appearance ENT ENT exam: Present mucous membranes moist, normal exam and normal external ear exam Neck Neck exam: Present normal inspection Respiratory Respiratory exam: Present normal respiratory exam Cardiovascular Cardiovascular exam: Present normal rate and rhythm GI/Abdominal GI/Abdominal exam: Present normal bowel sounds Additional comments: PEG tube in place Extremities Exam Extremities exam: Present full ROM; Absent normal inspection Additional comments: Left foot covered by surgical dressing Back Exam Back exam: Present normal inspection Neurological Exam Neurological exam: Present alert and oriented X3 Skin Skin exam: Present intact and warm OBJ DATA Labs CBC & Chem 7: 01/01/22 05:37 01/01/22 05:37 Labs: Abnormal Lab Results 01/01/22 01/01/22 12/31/21 05:37 05:37 05:50 RBC 2.89 L 2.79 L Hgb 8.9 L 8.8 L Hct 27.6 L 27.1 L POC Hct RDW Neut % (Auto) 79.5 H Lymph % (Auto) 13.5 L 9.6 L Lymph # (Auto) 0.84 L 0.72 L POC Sodium Sodium Potassium POC Chloride Chloride Anion Gap POC BUN BUN Creatinine POC Creatinine Glucose 110 H POC Glucose Osmolality POC WB Ioniz Calcium Phosphorus Lactate Dehydrogenase Albumin Albumin/Globulin Ratio Urine Glucose (UA) Ur Random Creatinine 12/31/21 12/30/21 12/30/21 05:49 05:43 05:42 RBC 3.11 L Hgb 9.6 L Hct 29.9 L POC Hct RDW 14.6 H Neut % (Auto) Lymph % (Auto) 7.3 L Lymph # (Auto) 0.47 L POC Sodium Sodium Potassium 5.3 H POC Chloride Chloride Anion Gap 7.0 L POC BUN BUN 24 H 25 H Creatinine POC Creatinine Glucose 122 H 106 H POC Glucose Osmolality POC WB Ioniz Calcium Phosphorus 4.6 H Lactate Dehydrogenase 132 L Albumin 2.6 L 3.1 L Albumin/Globulin Ratio 0.7 L 0.9 L Urine Glucose (UA) Ur Random Creatinine 12/29/21 12/29/21 12/29/21 16:05 16:05 15:13 RBC Hgb Hct POC Hct 28.0 L RDW Neut % (Auto) Lymph % (Auto) Lymph # (Auto) POC Sodium 126 L Sodium Potassium POC Chloride 87 L Chloride Anion Gap POC BUN 30 H BUN Creatinine POC Creatinine 1.5 H Glucose POC Glucose 120 H Osmolality POC WB Ioniz Calcium 1.12 L Phosphorus Lactate Dehydrogenase Albumin Albumin/Globulin Ratio Urine Glucose (UA) >=500 A Ur Random Creatinine 21.2 L 12/29/21 12/29/21 12/29/21 15:12 15:12 15:12 RBC 2.86 L Hgb 8.9 L Hct 26.9 L POC Hct RDW Neut % (Auto) 78.9 H Lymph % (Auto) 6.6 L Lymph # (Auto) 0.53 L POC Sodium Sodium 125 L Potassium POC Chloride Chloride 87 L Anion Gap POC BUN BUN 31 H Creatinine 1.4 H POC Creatinine Glucose 117 H POC Glucose Osmolality 279 L POC WB Ioniz Calcium Phosphorus Lactate Dehydrogenase Albumin Albumin/Globulin Ratio 0.9 L Urine Glucose (UA) Ur Random Creatinine Meds: Medications Acetaminophen (Acetaminophen 325 Mg Tablet) 650 mg PO Q6HP PRN; Protocol PRN Reason: Per Pain Protocol/Fever > 101 Albuterol/Ipratropium (Ipratropium/Albuterol 3 Ml Ampul.Neb) 3 ml NEB Q4HP PRN PRN Reason: Shortness Of Breath Aspirin (Aspirin 81 Mg Tab.Chew) 81 mg PO DAILY [facility] Last Admin: 01/01/22 09:39 Dose: 81 mg Atorvastatin Calcium (Atorvastatin 40 Mg Tablet) 40 mg PO QDAY [facility] Last Admin: 01/01/22 09:40 Dose: 40 mg Cilostazol (Cilostazol 100 Mg Tablet) 50 mg PO BIDAC [facility] Last Admin: 01/01/22 07:29 Dose: 50 mg Clopidogrel Bisulfate (Clopidogrel 75 Mg Tablet) 75 mg PO QDAY [facility] Last Admin: 01/01/22 09:39 Dose: 75 mg Dextrose (Dextrose 50% 50 Ml Vial) 0 ml IV UD PRN PRN Reason: Per Sliding Scale Diagnostic Test (Pha) (Accu-Chek 1 Each Strip) 1 each FS ACHS [facility] Last Admin: 01/01/22 11:19 Dose: 1 each Docusate Sodium (Docusate Sodium 100 Mg Capsule) 100 mg PO BID [facility] Last Admin: 01/01/22 09:40 Dose: 100 mg Duloxetine HCl (Duloxetine 30 Mg Capsule) 30 mg PO QHS [facility] Last Admin: 12/31/21 20:12 Dose: 30 mg Escitalopram Oxalate (Escitalopram 10 Mg Tablet) 10 mg PO QDAY [facility] Last Admin: 01/01/22 09:40 Dose: 10 mg Glucose (Dextrose 31 Gm Oral.Susp) 15 gm PO PRN PRN PRN Reason: Hypoglycemia Heparin Sodium (Porcine) (Heparin 5,000 Unit/Ml Vial) 5,000 unit SQ Q12 [facility] Last Admin: 01/01/22 09:40 Dose: 5,000 unit Hydralazine HCl (Hydralazine 20 Mg/Ml Vial) 10 mg IV Q4-6HP PRN PRN Reason: Hypertension Hydromorphone HCl (Hydromorphone 0.5 Mg/0.5 Ml Syringe) 0.5 - 1 mg IV Q2HP PRN; Protocol PRN Reason: Per Pain Protocol Last Admin: 12/30/21 20:51 Dose: 0.5 mg Hydroxyzine HCl (Hydroxyzine 25 Mg Tablet) 25 mg PO BIDP PRN PRN Reason: anxiety Last Admin: 12/31/21 15:52 Dose: 25 mg Potassium Chloride 40 meq/ (Dextrose) 520 mls @ 130 mls/hr IV UD PRN PRN Reason: Potassium < 3 Magnesium Sulfate (Magnesium Sulfate) 2 gm in 50 mls @ 50 mls/hr IV UD PRN PRN Reason: Magnesium </= 1.6 Last Infusion: 01/01/22 11:18 Dose: Infused Piperacillin Sod/Tazobactam (Sod 3.375 gm/ Dextrose) 50 mls @ 100 mls/hr IV Q6H [facility]; Protocol Last Admin: 01/01/22 11:31 Dose: 100 mls/hr Insulin Human Lispro (Insulin Lispro 1 Unit/0.01 Ml Unit) 0 unit SQ ACHS [facility]; Protocol Last Admin: 01/01/22 11:30 Dose: 6 unit Labetalol HCl (Labetalol 5 Mg/Ml Ml) 0 mg IV Q2HP PRN PRN Reason: Hypertension Lisinopril (Lisinopril 10 Mg Tablet) 10 mg PO QDAY [facility] Last Admin: 01/01/22 09:40 Dose: 10 mg Lorazepam (Lorazepam 1 Mg Tablet) 1 mg PO QHS [facility] Last Admin: 12/31/21 20:10 Dose: 1 mg Morphine Sulfate (Morphine 30 Mg Tab.Sr.12h) 60 mg PO BID [facility] Last Admin: 01/01/22 09:39 Dose: 60 mg Ondansetron HCl (Ondansetron 4 Mg/2 Ml Vial) 4 mg IV Q4HP PRN PRN Reason: Nausea And Vomiting Oxycodone HCl (Oxycodone Hcl 5 Mg Tablet) 10 mg PO Q4-6HP PRN; Protocol PRN Reason: Per Pain Protocol Last Admin: 01/01/22 11:49 Dose: 10 mg Polyethylene Glycol (Polyethylene Glycol 3350 17 Gm Packet) 17 gm PO DAILYP PRN PRN Reason: Constipation Potassium Chloride (Potassium Chloride 20 Meq Tablet) 40 meq PO UD PRN PRN Reason: Potssium is 3-3.5 Potassium Chloride (Potassium Chloride 20 Meq Tablet) 40 meq PO UD PRN PRN Reason: Potassium < 3 Pregabalin (Pregabalin 75 Mg Capsule) 75 mg PO QHS [facility] Last Admin: 12/31/21 20:12 Dose: 75 mg Prochlorperazine (Prochlorperazine 10 Mg Tablet) 5 mg PO BIDP PRN PRN Reason: Nausea Scopolamine (Scopolamine 1 Patch Patch) 1 patch TOPICAL PREOP PRN PRN Reason: Nausea And Vomiting Senna (Sennosides 1 Tablet) 2 tab PO DAILYP PRN PRN Reason: Constipation Sodium Chloride (0.9 % Sodium Chloride 10 Ml Syringe) 10 ml IV Q8 [facility] Last Admin: 01/01/22 06:03 Dose: 10 ml A/P Assessment and plan (1) Cellulitis of left foot: Status: Acute (2) Type 2 diabetes mellitus with diabetic chronic kidney disease: Status: Chronic Qualifiers: 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 Chronic kidney disease stage: stage 2 (mild) Qualified Code(s): E11.22 - Type 2 diabetes mellitus with diabetic chronic kidney disease; N18.2 - Chronic kidney disease, stage 2 (mild); Z79.4 - group home (current) use of insulin (3) Hyperlipidemia, unspecified: Status: Chronic Qualifiers: Hyperlipidemia type: pure hypercholesterolemia Qualified Code(s): E78.00 - Pure hypercholesterolemia, unspecified; E78.0 - Pure hypercholesterolemia (4) Essential hypertension: Status: Chronic (5) PAD (peripheral artery disease): Status: Chronic (6) Anemia, normocytic normochromic: Status: Acute Narrative A/P Narrative: Assessment and Plans: 1. Left foot cellulitis: s/p I&D left first metatarsal by Dr. Tran, post surgical management according to surgical team Wound and blood cultures no growth to date cbc w/ auto diff daily to trend WBC Zosyn MS contin Oxycodone PRN Dilaudid IV PRN Physical therapy Occupational therapy 2. T2DM with diabetic neuropathy and nephropathy: HgA1c 6.0 Hold oral hypoglycemics Insulin Lispro SSI AC HS Accu Chek AC HS Hypoglycemia protocol Diabetic diet Lyrica BMP daily to trend kidney functions Avoid nephrotoxic agents 3. Essential hypertension: Lisinopril Hydralazine 10mg IV q4-6hr PRN SBP>=180 and/or DBP>=110mmHg 4. Dyslipidemia: Continue statin therapy 5. Peripheral vascular disease: Statin Cilostazol Plavix Aspirin 6. Anemia, normocytic normochromic: cbc w/ auto diff daily to trend H/H GI ppx: not currently indicated DVT ppx: Heparin Code status: Full Prognosis: Stable Disposition: Disposition; PT OT Time Spent With Patient Time: Total time spent is greater than 50% in coordination of care (as documented) at patient's floor/unit and/or counseling patient: Total time spent with greater than 50% in coordination of care (as documented) at patient's floor/unit and/or counseling patient:: 25 - 35 minutes
[2022-01-01] MEDS: HYDROmorphone 0.5 MG/0.5 ML SYRINGE IV PRN (19:22)
[2022-01-01] MEDS: LORazepam 1 MG TABLET PO SCH (20:35)
[2022-01-01] MEDS: PREGABALIN 75 MG CAPSULE PO SCH (20:35)
[2022-01-01] MEDS: DULoxetine 30 MG CAPSULE PO SCH (20:36)
[2022-01-02] MEDS: PIPERACILLIN SODIUM/TAZOBACTAM 3.375 GM in DEXTROSE 5% IN WATER 50 ML IV SCH ×2 (05:24→12:14)
[2022-01-02] MEDS: 0.9 % SODIUM CHLORIDE 10 ML SYRINGE IV SCH ×2 (05:24→16:46)
[2022-01-02 07:10] LABS: Basophils # (Auto) 0.02 K/mcL (0.00-0.30); Basophils % (Auto) 0.4 % (0.0-2.0); Eosinophils % (Auto) 3.9 % (0.0-7.0); Hematocrit 26.7 % (40.1-51.0); Hemoglobin 8.9 g/dL (13.7-17.5); Lymphocytes # (Auto) 0.69 K/mcL (1.50-4.80); Lymphocytes % (Auto) 13.4 % (15.5-49.0); Mean Cell Volume 93.7 fL (80.0-100.0); Mean Corpuscular HGB Conc 33.3 g/dL (31.0-36.0); Mean Platelet Volume 10.3 fL (8.8-12.5); Monocytes # (Auto) 0.64 K/mcL (0.10-0.90); Monocytes % (Auto) 12.5 % (1.0-12.0); Neutrophils % (Auto) 69.2 % (38.0-78.0); Platelet Count 215 K/mcL (140-440); RBC 2.85 M/mcL (4.63-6.08); Red Cell Distribution Width 14.2 % (11.5-14.5); WBC 5.1 K/mcL (4.5-11.0)
[2022-01-02] MEDS: INSULIN LISPRO 1 UNIT/0.01 ML UNIT SQ SCH ×2 (07:10→12:13)
[2022-01-02 07:26] LABS: Blood Urea Nitrogen 17 mg/dL (8-23); Carbon Dioxide 25 mmol/L (22-30); Chloride 99 mmol/L (96-108); Glomerular Filtration Rate 74; Glucose 106 mg/dL (70-105); Phosphorous 4.2 mg/dL (2.5-4.5)
[2022-01-02] MEDS: HEPARIN 5,000 UNIT/ML VIAL SQ SCH (08:09)
[2022-01-02] MEDS: ESCITALOPRAM 10 MG TABLET PO SCH (08:10)
[2022-01-02] MEDS: ATORVASTATIN 40 MG TABLET PO SCH (08:10)
[2022-01-02] MEDS: morphine 30 MG TAB.SR.12H PO SCH (08:10)
[2022-01-02] MEDS: ASPIRIN 81 MG TAB.CHEW PO SCH (08:10)
[2022-01-02] MEDS: CILOSTAZOL 100 MG TABLET PO SCH (08:10)
[2022-01-02] MEDS: DOCUSATE SODIUM 100 MG CAPSULE PO SCH (08:11)
[2022-01-02] MEDS: CLOPIDOGREL 75 MG TABLET PO SCH (08:11)
[2022-01-02] MEDS: LISINOPRIL 10 MG TABLET PO SCH (08:11)
[2022-01-02] MEDS: hydrOXYzine 25 MG TABLET PO PRN (10:42)
--- NOTE | 2022-01-02 13:34 | Discharge Summary ---
Discharge Provider Provider IMPORTANT FOLLOW-UP INFORMATION FOR PCP: Patient information: Note initiated : 01/02/22 at 1:32 pm Service Date, if different from initiated Date: [] Patient: Jt Goodrich 71 y/o M admitted on 12/29/[address] yash waters, foot pain. Chief Complaint: [] Date of admission: 12/29/21 18:28 Discharge date: 01/02/22 Primary care physician: Kameron Forbes DO Attending physician on admission: Delon Amador Consults: 12/29/21 Consult to Physician [CONS] Stat Comment: Consulting Provider: Jaison Tran Reason For Exam: Physician to Consult Consult to Physician [CONS] Stat Comment: Consulting Provider: Delon Amador Reason For Exam: Physician to Consult Attending physician on discharge: [facility] COURSE Hospital Course Hospital course: Patient presents the ED with left foot infection for the past week. He was sent in by his outpatient case manager Dr. Tran. Patient states that about a week ago he noticed that his left foot which has had a history of crush injury developed redness swelling and pain around the ball of the foot. He went in to see his primary care Dr. Forbes who ordered x-ray and some labs and then sent him to see Dr. Tran. The x-ray showed some gas in the soft tissue. Dr. Tran saw him today and sent him to the ED for IV antibiotics and likely surgical I&D. Patient denies fever chills nausea vomiting. Sodium was noted to be low at 126 with a low chloride and an elevated BUN and creatinine as well. Anemia present. 12/30 Patient status post surgery with I&D of the left first metatarsal and bone biopsy. Patient feeling little drowsy after surgery but otherwise no complaints 12/31: There was no major overnight events. Low grade fever with Tmax 37.7. Patient denies any left foot pain at the moment. Denies any fever or chills or diaphoresis. Continue Zosyn for left foot cellulitis. Continue to monitor for culture results. Continue narcotics for symptoms management. Pending physical and occupational therapies. 01/01: Afebrile overnight. Blood and wound cultures no growth to date. Patient denies any left foot pain at the moment. Denies any fever or chills or diaphoresis. Continue Zosyn for left foot cellulitis. Continue to monitor for culture results. Continue narcotics for symptoms management. Pending physical and occupational therapies. 01/02: Discharged. Discharge diagnosis: left foot cellulitis Time Spent with Patient Time attestation: Total time spent providing and/or coordinating discharge services: Time spent: Greater than 30 minutes EXAM Constitutional Vitals: Temp Pulse Resp BP Pulse Ox O2 Del Method O2 Flow Rate 36.7 C 65 16 113/65 96 5 01/02/22 12:03 01/02/22 12:03 01/02/22 12:03 01/02/22 12:03 01/02/22 12:03 01/02/22 12:03 12/30/21 09:26 General appearance: cooperative and no acute distress Head Head exam: Present atraumatic and normocephalic Eye Eye exam: Present EOMI and PERRL ENT ENT exam: Present mucous membranes moist, normal exam and normal external ear exam Neck Neck exam: Present normal inspection; Absent lymphadenopathy, tenderness or thyromegaly Respiratory Respiratory exam: Absent accessory muscle use, respiratory distress or wheezes Cardiovascular Cardiovascular exam: Present normal rate and rhythm; Absent JVD GI/Abdominal GI/Abdominal exam: Present normal bowel sounds and soft; Absent organomegaly or tenderness Additional comments: PEG tube in place Rectal Rectal exam: Present deferred Extremities Exam Extremities exam: Present normal capillary refill; Absent full ROM, normal inspection or tenderness Additional comments: Left foot wrapped by surgical wound dressing Neurological Exam Neurological exam: Present alert, CN II-XII intact and oriented X3; Absent motor sensory deficit Psychiatric Psychiatric exam: Present normal affect and normal mood; Absent anxious or depressed Skin Skin exam: Present dry and intact Discharge Data Data Completed and Pending Labs on day of discharge: Labs from last 24 hours 01/02/22 01/02/22 05:45 05:45 WBC 5.1 RBC 2.85 L Hgb 8.9 L Hct 26.7 L MCV 93.7 MCH 31.2 MCHC 33.3 RDW 14.2 Plt Count 215 MPV 10.3 Immature Gran % (Auto) 0.6 H Neut % (Auto) 69.2 Lymph % (Auto) 13.4 L Addison % (Auto) 12.5 H Eos % (Auto) 3.9 Baso % (Auto) 0.4 Lymph # (Auto) 0.69 L Addison # (Auto) 0.64 Eos # (Auto) 0.20 Baso # (Auto) 0.02 Immature Gran # 0.03 Absolute Neutrophils 3.56 Sodium 133 Potassium 4.5 Chloride 99 Carbon Dioxide 25 Anion Gap 9.0 BUN 17 Creatinine 1.0 GFR Calculation 74 Glucose 106 H Calcium 9.0 Phosphorus 4.2 Magnesium 1.8 Preliminary micro results at discharge 12/29/21 11:36 Blood Culture - Preliminary Blood 12/29/21 11:37 Blood Culture - Preliminary Blood 12/29/21 18:28 Gram Stain - Preliminary Other - Foot Anaerobic Culture - Preliminary Discharge Plan Patient/Caregiver Discharge Instructions Activity: increase activity as tolerated Diet: Consistent Carbohydrate Prescriptions: Continued (DME) FreeStyle Esther 14 Day [place] Misc See Rx Instructions .ROUTE .MEDSUPPLY Qty: 6 3RF Rx Instructions: As directed prochlorperazine maleate 5 mg tablet 5 mg PO BID PRN (Reason: Nausea) (DME) FreeStyle Esther 14 Day Sensor Kit See Rx Instructions .ROUTE .MEDSUPPLY Qty: 6 3RF Rx Instructions: As directed pregabalin 75 mg capsule 75 mg PO QHS Qty: 90 0RF atorvastatin 40 mg tablet 40 mg PO QDAY Qty: 90 1RF Jardiance 25 mg tablet 25 mg PO QDAY Qty: 90 1RF lisinopril 10 mg tablet 10 mg PO QDAY Qty: 90 1RF aspirin [Adult Aspirin Regimen] 81 mg tablet,delayed release (DR/EC) 81 mg PO QDAY (DME) lancets [Lancets,Ultra Thin] Misc See Rx Instructions .ROUTE .MEDSUPPLY Qty: 50 Rx Instructions: As directed hydroxyzine HCl 25 mg tablet 25 mg PO BID MDD 2 PRN (Reason: anxiety) Qty: 30 0RF naloxone 4 mg/actuation spray,non-aerosol 4 mg INTRANASAL .COMPLEX PRN (Reason: opioid overdose) Qty: 2 0RF Rx Instructions: administer 1 dose in one nostril. Call 911. If no response after 3-5 minutes, administer second dose PRN; morphine [MS Contin] 60 mg tablet extended release 60 mg PO BID MDD 2 Qty: 60 0RF Rx Instructions: *MUST LAST 30 DAYS* P/U 01/23, Start 01/24 oxycodone 10 mg tablet 10 - 20 mg PO .Q4-6H MDD 6 PRN (Reason: pain) Qty: 180 0RF Rx Instructions: *MUST LAST 30 DAYS* P/U 01/23, Start 01/24 lorazepam [Ativan] 1 mg tablet 1 mg PO QHS Qty: 30 1RF cilostazol 50 mg tablet 50 mg PO BID Qty: 30 0RF clopidogrel [Plavix] 75 mg tablet 75 mg PO QDAY escitalopram oxalate 10 mg tablet 10 mg PO QDAY Qty: 90 3RF sulfamethoxazole-trimethoprim [Bactrim DS] 800-160 mg tablet 1 tab PO BID Qty: 20 0RF multivitamin Tablet 1 tab PO QDAY duloxetine 60 mg capsule,delayed release(DR/EC) 30 mg PO QHS metformin 1,000 mg tablet,ER luke.retention 24 hr 500 mg PO QDAY pregabalin 150 mg capsule 150 mg PO QHS PRN (Reason: pain) Follow Up Plan Follow up with: Kameron Forbes DO [Primary Care Provider] - Jaison Tran DPM [Physician] - Patient Disposition: Home, Self-Care Rehab Potential: Good I certify that the patient requires SNF services: No Overall status at discharge: patient is progressing back to baseline Discharge Orders: Discharge Order (Routine); Ordered 01/02/22 Ordered By: Sherman Wright
== END 2022-01-02 17:00 | disposition home or self-care (01) | DRG 571 ==
LOC: ED 14:29 → MEDSUR 18:28
PROVIDERS: ADMIT Internal Medicine; ATTEND Internal Medicine

== ENCOUNTER 2022-09-22 18:20 | Inpatient (IN) ==
[2022-09-22] MEDS ORDERED: IOPAMIDOL 100 ML BOTTLE IV ONE (18:21)
[2022-09-22] MEDS ORDERED: 0.9 % SODIUM CHLORIDE 1,000 ML IV ONE ×2 (18:23→19:40)
--- NOTE | 2022-09-22 18:23 | Emergency Department Note ---
Weakness HPI General Chief complaint: Weakness Stated complaint: "I can't walk" Time Seen by Provider: 09/22/22 18:23 Mode of arrival: ambulatory Limitations: physical limitation History of Present Illness HPI Narrative: Narrative: Patient is a 72-year-old male who presented at the emergency department today by EMS. He is accompanied with his . His reports that last night he started to become more confused. He has been having increased generalized weakness. He has not been drinking much water and typically does not drink water very often and primarily drinks coffee. He had a half a cup of coffee in the last 24 hours. He denies any pain today. He does smoke and reports having a slight cough. He has not had any shortness of breath or difficulty breathing. Patient denies fevers, chills, chest pain, abdominal pain, nausea, or vomiting. He has not had any headache, paresthesias, bleeding, bruising, melena, or hem atochezia. He has not had any falls or injuries. Related Data Home Medications Medication Instructions Recorded Confirmed aspirin 81 mg tablet,delayed 81 mg PO QDAY 09/26/17 09/22/22 release (Adult Aspirin Regimen) clopidogrel 75 mg tablet (Plavix) 75 mg PO QDAY 07/12/20 09/22/22 prochlorperazine maleate 5 mg 5 mg PO BID PRN Nausea 08/08/21 09/22/22 tablet metformin 1,000 mg 24 hr 500 mg PO QDAY 11/10/21 09/22/22 tablet,extended release multivitamin 1 tab PO QDAY 11/10/21 09/22/22 varenicline 1 mg tablet (Chantix) 1 mg PO BID 02/07/22 09/22/22 Previous Rx's Medication Instructions Recorded atorvastatin 40 mg tablet 40 mg PO QDAY #90 tabs 09/05/19 empagliflozin 25 mg tablet 25 mg PO QDAY #90 tabs 09/05/19 (Jardiance) lisinopril 10 mg tablet 10 mg PO QDAY #90 tabs 09/05/19 cilostazol 50 mg tablet 50 mg PO BID #30 tabs 07/29/20 flash glucose scanning reader #6 ea 08/18/20 (FreeStyle Esther 14 Day [place]) naloxone 4 mg/actuation nasal spray 4 mg intranasal .COMPLEX PRN 07/14/21 opioid overdose #2 ea flash glucose sensor (FreeStyle #6 ea 08/17/21 Esther 14 Day Sensor kit) escitalopram oxalate 10 mg tablet 10 mg PO QDAY #90 tabs 12/27/21 hydroxyzine HCl 25 mg tablet 25 mg PO BID PRN anxiety #60 tabs 07/03/22 duloxetine 60 mg capsule,delayed 60 mg PO QHS #90 caps 07/26/22 release lorazepam 1 mg tablet (Ativan) 1 mg PO QHS PRN anxiety #30 tabs 07/26/22 morphine 60 mg tablet,extended 60 mg PO BID #60 tabs 07/26/22 release (MS Contin) oxycodone 10 mg tablet 10 - 20 mg PO .Q4-6H PRN pain #180 07/26/22 tabs pregabalin 150 mg capsule 150 mg PO QHS #180 caps 07/26/22 pregabalin 75 mg capsule 75 mg PO QAM #90 caps 07/26/22 Allergies Allergy/AdvReac Type Severity Reaction Status Date / Time latex Allergy Severe Hives Verified 07/26/22 11:04 Bee Pollen Allergy Unknown Swelling Verified 07/26/22 11:04 chlora prep Allergy Severe Hives Uncoded 07/26/22 11:04 Review of Systems ROS ROS Narrative: Narrative: All systems ED: reviewed and negative except as stated. [facility] Narrative Patient History Narrative: Narrative: Medical/Surgical/Family History All Active Problems (Updated 09/22/22 @ 22:35 by Dangelo Arroyo DNP) Dehydration (Acute) Community acquired pneumonia (Acute) Acute hepatic encephalopathy (Acute) Rhabdomyolysis (Acute) Other low back pain (Acute) Neoplasm related pain (acute) (chronic) (Acute) Anemia, normocytic normochromic (Acute) Diabetic foot ulcer with osteomyelitis (Acute) Major depressive disorder (Acute) Cellulitis of left foot (Acute) Passive suicidal ideations (Acute) Urinary retention (Acute) Post-operative pain (Acute) 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) Umbilical hernia (Chronic) Lymphadenopathy (Acute) Peripheral vascular disease (Acute) Left foot pain (Chronic) Toe pain, left (Chronic) Neurogenic claudication due to lumbar spinal stenosis (Chronic) Degenerative joint disease (Chronic) Type 2 diabetes mellitus without complications (Chronic) History of cancer (Chronic) Hypercholesterolemia (Chronic) Embolism and thrombosis of artery (Chronic) COPD (chronic obstructive pulmonary disease) (Chronic) Spondylosis without myelopathy or radiculopathy, lumbar region (Chronic) Spinal stenosis, lumbar region without neurogenic claudication (Chronic) Radiculopathy, cervical region (Chronic) Chronic pain (Chronic) Low back pain (Chronic) Radiculopathy, lumbar region (Chronic) Spondylosis without myelopathy or radiculopathy, cervical region (Chronic) Medicare annual wellness visit, initial (Chronic) Hemorrhoids (Chronic) Hepatitis C (Chronic) Hemochromatosis (Chronic) 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) PAD (peripheral artery disease) (Chronic) Carpal tunnel syndrome, right (Chronic) Metabolic syndrome (Chronic) Skin cancer (Chronic) Arthritis (Chronic) Acute hemorrhoid (Chronic) PNA (pneumonia) (Chronic) History of bronchitis (Chronic) Measles (Chronic) Hypertension (Chronic) 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) Chronic hepatitis C without hepatic coma (Chronic) Other cervical disc degeneration, cervicothoracic region (Chronic) 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) History of hepatitis C (Chronic) Atherosclerosis of aorta (Chronic) Chronic kidney disease, stage 2 (mild) (Chronic) Type 2 diabetes mellitus with hyperglycemia (Chronic) intermediate current use of insulin (Chronic) Nicotine dependence, cigarettes, uncomplicated (Chronic) Other nonrheumatic aortic valve disorders (Chronic) Essential hypertension (Chronic) Intermittent claudication of left lower extremity due to atherosclerosis (Chronic) Opioid dependence, uncomplicated (Chronic) Chronic pain due to trauma (Chronic) Hyperlipidemia, unspecified (Chronic) Other chronic postprocedural pain (Chronic) Other intervertebral disc degeneration, lumbar region (Chronic) intermediate current use of opiate analgesic (Chronic) Kidney cysts (Chronic) Laceration (Chronic) Encounter for removal of sutures (Chronic) Medical History (Updated 09/22/22 @ 22:35 by Dangelo Arroyo DNP) Acute hemorrhoid Arthritis Atherosclerosis of aorta Atherosclerotic heart disease of false pass coronary artery without angina pectoris Carpal tunnel syndrome, right Chronic hepatitis C without hepatic coma Chronic kidney disease, stage 2 (mild) Chronic pain Chronic pain due to malignant neoplastic disease With intrathecal pump in place Chronic pain due to trauma COPD (chronic obstructive pulmonary disease) Degenerative joint disease Embolism and thrombosis of artery Blood clot in neck after fusion 2010/removed in surgery Encounter for removal of sutures Essential hypertension Hemochromatosis Hemochromatosis associated with mutation in HFE gene Hemorrhoids Hepatitis C History of bronchitis History of cancer History of hepatitis C Hypercholesterolemia Hyperlipidemia, unspecified Hypertension Intermittent claudication of left lower extremity due to atherosclerosis Kidney cysts Laceration Left foot pain intermediate current use of insulin intermediate current use of opiate analgesic Low back pain Measles Medicare annual wellness visit, initial Metabolic syndrome Neoplasm related pain (acute) (chronic) Neurogenic claudication due to lumbar spinal stenosis Nicotine dependence, cigarettes, uncomplicated Opioid dependence, uncomplicated Other cervical disc degeneration, cervicothoracic region Other chronic postprocedural pain Other intervertebral disc degeneration, lumbar region Other low back pain Other nonrheumatic aortic valve disorders PAD (peripheral artery disease) PNA (pneumonia) Porphyria cutanea tarda Radiculopathy, cervical region Radiculopathy, lumbar region Secondary osteoarthritis of left foot Skin cancer Spinal stenosis, lumbar region without neurogenic claudication Spondylosis without myelopathy or radiculopathy, cervical region Spondylosis without myelopathy or radiculopathy, lumbar region 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 Type 2 diabetes mellitus with hyperglycemia Type 2 diabetes mellitus without complications Surgical History (Updated 08/31/22 @ 12:49 by Nabila Dillon) History of carpal tunnel surgery History of colonoscopy (08/31/22) History of elbow surgery L History of eye surgery (~2016) Right 2017 History of foot surgery (~09/2011) L History of hand surgery Both hands History of neck surgery (~2007) 2007 History of oral surgery Root canal History of orthopedic surgery 1992 - Multiple sites- Elbow Left, Bilateral hand, Right Shoulder; Left foot 09/2011 History of root canal procedure History of shoulder surgery R History of surgery ankle History of surgery LESI #2 L3-4 w/sed 11/03/201910/26 MAYDA #2 w/cath, w/sed 11/03/201907/27 L3-4 TAY #1 w/ sed 07/22/1907/27 MAYDA #1 w/cath, w/sed 07/22/1904/28 LESI #3 L4-5 w/sed 05/08/1904/28 MAYDA #3 w/cath, wsed 05/08/1903/27 MAYDA #2 w/cath, w/sed 03/12/1903/27 LESI #2 L4-5 w/sed 03/12/1901/25 LESI #1 L4-5 w/sed 01/14/201901/25 MAYAD #1 w/cath, w/sed 01/14/201908/25 LESI #3 L4-5 w/sed 08/14/201808/25 MAYDA #3 w/cath w/sed 08/14/201805/28 MAYDA #2 w/cath w/sed 05/21/201805/28 LESI #2 L4-5 w/sed 05/21/201803/26 LESI #1 L4-5 w/sed 03/14/1803/26 MAYDA #1 w/cath, w/sed 03/14/1812/25 LESI #3 L4-5 w/sed 01/02/1812/25 MAYDA #3 w/cath, w/sed 01/02/1809/24 LESI #2 L4-5 w/sed 09/18/1709/24 MAYDA #2 w/cath, w/sed 09/18/1707/25 LESI #1 L4-5 w/sed 08/01/1707/25 MAYDA #1 w/cath, w/sed 07/17/201706/24 MBB C3-7 bilat w/sed 06/28/201701/23 LESI #1 L4-5 w/sed 01/22/201711/23 MAYDA #2 w/cath w/sed 11/21/201610/23 MAYDA #1 w/sed, w/cath 11/02/201610/20 MAYDA #2 w/sed 10/23/201307/21 LESI #1 L4-5 w/sed 07/16/201307/21 MAYDA #1 w/sed 07/16/201301/17 Facets Left L2-3,L3-4, L4-5, L5-S1 w/sed (01-12-11) Status post trigger finger release (~03/2014) 03/2014 Family History Mother Dementia Father Cancer Grandmother Diabetes Maternal Brother Lung cancer Other Breast cancer Colon cancer Social History Smoking Status: Current every day smoker Alcohol Intake Frequency: does not drink Substance Use: does not use Exam Narrative Narrative: Narrative: General Limitations: physical limitation General appearance: Present alert and in no apparent distress Head Head: Present atraumatic, normocephalic and normal inspection Eye Eye: Present normal appearance, PERRL, EOMI and other (Negative skew test.); Absent scleral icterus, conjunctival injection, nystagmus or periorbital swelling ENT ENT: Present mucous membranes dry Neck Neck: Present normal inspection and full ROM; Absent lymphadenopathy Chest Chest: Present normal inspection and symmetric chest wall rise; Absent tenderness Respiratory Respiratory: Present normal lung sounds bilaterally; Absent respiratory distress, rales/crackles or accessory muscle use Cardiovascular Cardiovascular: Present normal rhythm, tachycardia and systolic murmur; Absent JVD Adbominal Abdominal: Present soft and normal bowel sounds; Absent distention, tenderness or mass Extremities Extremities: Present full ROM and normal capillary refill; Absent cyanosis Neurological Neurological: Absent motor sensory deficit Expanded Neurological Patient oriented to: Present person and place; Absent time Speech: Present fluid speech CRANIAL NERVES: EOM function (II, III, IV, ): Normal, facial sensation (V): Normal, facial palsy (VII): Normal, gag reflex (IX): Normal, spinal accessory function (XI): Normal and tongue deviation (XII): Normal CEREBELLAR FUNCTION: finger to nose: Normal and heel to cleaning: Normal Motor strength - LUE: 4/5 Motor strength - RUE: 4/5 Motor strength - LLE: 4/5 Motor strength - RLE: 4/5 UPPER MOTOR NEURON EXAM: odilon neglect: Normal and pronator drift: Normal SENSORY EXAM UPPER EXTREMITY: Normal: light touch SENSORY EXAM LOWER EXTREMITY: Normal: light touch Coma Scale Eye Opening: Spontaneous Coma Scale Motor Response: Obeys Commands Coma Scale Verbal Response: Confused Coma Scale Total: 14 Psychiatric Psychiatric: Present normal affect, normal mood and polite Skin Skin: Present warm (WNL), dry and normal color Course Vital Signs Vital signs: Vital Signs Pulse Rate 109 H 09/22/22 18:20 Respiratory Rate 18 09/22/22 18:20 Blood Pressure 136/68 09/22/22 18:20 Pulse Oximetry (%) 92 09/22/22 18:20 Oxygen Delivery Method Room Air 09/22/22 18:20 Pulse Rate 83 09/22/22 22:08 Respiratory Rate 14 09/22/22 22:08 Blood Pressure 126/62 09/22/22 21:47 Pulse Oximetry (%) 95 09/22/22 22:08 Oxygen Delivery Method Nasal Cannula 09/22/22 21:01 Oxygen Flow Rate (L/min) 1 09/22/22 21:01 [facility] MDM Narrative Medical decision making narrative: Narrative: Patient is a 72-year-old male who came into the emergency department with generalized weakness and notable confusion that started last night. His reported that he has been slowly confused more today. He has not been drinking much water and on exam he has very dry mucous membranes. Patient was given a liter of IV normal saline for hydration today. Proceed with a noncontrast head CT as well as laboratory evaluation for causes of his weakness and confusion. He does take large quantities of opiates and this may be potentially causing some of his confusion. Did consider naloxone to be given, however he does not have any hypoxia or emergent finding to use any reversal agent. Proceeded with IV hydration at this time while waiting further labs and work-up today. His EKG on arrival is sinus tachycardia with a rate of 102. No findings of acute coronary syndrome. His lactic acid elevated at 3.57 and creatinine 1.4 with BUN of 18, and he does have chronic kidney disease which this is close to his baseline. His electrolytes are rather unremarkable and [id number] Chem- 8. VBG shows HCO3 22.9 and pH of 7.33. Patient CBC does not show any leukocytosis. His hemoglobin 9.1 and hematocrit 29.3 which is at patient's baseline. Patient's AST is 105 and ALT of 32. Alkaline phos is 123 and ammonia level is 114. Proceed with liver ultrasound for further evaluation. He was given 20 mg lactulose orally. Patient's procalcitonin minimally elevated 0.13. He does have possible infiltrate in the left lower lobe to my review. He was given 1 g of IV Rocephin today in the emergency department. Patient's noncontrast head CT preliminary report is read as no acute intracranial abnormality. After 1 L of normal saline patient was feeling slightly better but was still confused with the date. He was given the lactulose and second liter of fluid was given today. With the patient's confusion, weakness, and findings of potential hepatic encephalopathy, pneumonia, and dehydration I feel that hospital admission would be needed for consideration. I was able to speak with Dr. Amador who is the hospitalist today at [facility]. He did recommend checking INR, GGT, CPK, and the potential for hepatic thrombosis and with the hepatic ultrasound that was ordered. The senior process control tech does report that the pancreatic duct is dilated, common bile duct dilated to 13 mm, and gallbladder dilated with sludge and stones. The tech reports that she could not see a stone in the common bile duct. All of the veins were patent without any finding of thrombus. The ultrasound being sent to direct radiology for preliminary report read. I was able to speak with general surgeon, Dr. Brown this evening which I am very appreciative of the consultation. Labs were reviewed with Dr. Brown and also the preliminary ultrasound findings. I was able to review previous CT abdomen pelvis report from June 05, 2022 that it also showed that the gallbladder was distended. Intra and extrahepatic biliary ducts are dilated and cholelithiasis was noted. Dr. Brown felt that patient likely does not have a biliary tract problem given that his bilirubin level is normal. He recommended to consider admitting patient under observation and having an MRCP done tomorrow morning and then a reevaluation could be done to see if patient would need an ERCP, but he felt that likely at this time with his labs findings it would be less likely of potential biliary tract problem. I spoke again with Dr. Amador and unfortunately the MRCP cannot be done this evening and is not available until tomorrow morning. He recommended keeping the patient in the emergency department with NS at 100 for maintenance fluids and having MRCP done with an available at 8 AM. His CK was noted to be elevated today and CRP was 4.60. The patient denied having any falls or injuries. His also explained that he had not had any falls or injuries, but on speaking with the a later time today she did inform me that she did find him lying on the carpet this morning, and she was not sure how long he was sleeping there. The patient was placed in seizure precaution given that he does have the elevated CRP and the elevated CK level. Seizure would be on the differential diagnosis with this patient, but less likely seizure activity given that the patient's explains that she found him lying on the floor this morning. Patient likely has started noting of rhabdomyolysis. Patient has maintenance fluids NS at 100 mL/h and we will plan on repeating routine labs in the morning. Dr. Amadro had ordered a D-dimer on the patient and this came back elevated at 1.81. He is currently requiring 1 L of O2 to maintain oxygen saturation greater than 90%. I did order a CTA of chest to evaluate for potential PE. Patient currently resting comfortably in room T-3. Due to shift change at 2200 Dr. Ponce will assume care of the patient. Lab Data 09/22/22 18:34 Labs: Lab Results 09/22/22 09/22/22 09/22/22 Range/Units 18:32 18:34 18:34 WBC 9.6 (4.5-11.0) K/mcL RBC 3.51 L (4.63-6.08) M/mcL Hgb 9.1 L (13.7-17.5) g/dL Hct 29.3 L (40.1-51.0) % POC Hct 30.0 L (41-55) MCV 83.5 (80.0-100.0) fL MCH 25.9 L (26.0-34.0) pg MCHC 31.1 (31.0-36.0) g/dL RDW 17.0 H (11.5-14.5) % Plt Count 344 (140-440) K/mcL MPV 9.6 (8.8-12.5) fL Immature Gran % (Auto) 0.8 H (0.0-0.5) % Neut % (Auto) 79.7 H (38.0-78.0) % Lymph % (Auto) 8.3 L (15.5-49.0) % Ogle % (Auto) 10.2 (1.0-12.0) % Eos % (Auto) 0.7 (0.0-7.0) % Baso % (Auto) 0.3 (0.0-2.0) % Lymph # (Auto) 0.80 L (1.50-4.80) K/mcL Ogle # (Auto) 0.98 H (0.10-0.90) K/mcL Eos # (Auto) 0.07 (0.00-0.70) K/mcL Baso # (Auto) 0.03 (0.00-0.30) K/mcL Seg Neutrophils % (38-78) % Band Neutrophils % (0-10) % Lymphocytes % (15-49) % Monocytes % (Manual) (1-12) % Eosinophils % (Manual) (0-7) % Immature Gran # 0.08 H (0.00-0.05) K/mcl Absolute Neutrophils 7.68 (1.80-8.00) K/mcL Platelet Estimate (Normal) RBC Morphology (Normal) PT (11.9-14.5) sec INR (0.9-1.1) D-Dimer (0.27-0.50) ug/mL POC VBG pH (7.32-7.42) POC VBG pCO2 at Temp (41-51) POC VBG pO2 (25-40) POC VBG HCO3 (24-28) POC VBG Total CO2 (25-29) POC Venous O2 Sat (40-70) POC VBG Base Excess (-2-2) VBG Lactic Acid (0.5-2) POC Sodium 134 (133-145) POC Potassium 4.8 (3.3-5.1) POC Chloride 102 (96-108) POC Total CO2 23.0 (22-30) POC Anion Gap 15.0 (8.0-16.0) POC BUN 18 (6-20) POC Creatinine 1.4 H (0.6-1.2) POC Glucose 193 H (70-105) POC WB Ioniz Calcium 1.14 L (1.16-1.32) Magnesium 1.9 (1.6-2.5) mg/dL Total Bilirubin 0.2 (0.1-1.0) mg/dL Direct Bilirubin < 0.2 (0-0.3) mg/dL GGT (8-61) U/L AST 105 H (<40) U/L ALT 32 (<40) U/L Alkaline Phosphatase 123 H (39-117) U/L Ammonia (16-60) umol/L Lactate Dehydrogenase (135-225) U/L Total Creatine Kinase (24-195) U/L C-Reactive Protein (0.03-0.80) mg/dL Total Protein 7.3 (5.9-8.4) gm/dL Albumin 3.9 (3.2-5.2) gm/dL Globulin 3.4 (2.2-3.7) gm/dL Procalcitonin (<0.10) ng/mL TSH 5.46 H (0.27-5.01) uIU/mL POC Troponin I (0.00-0.08) 09/22/22 09/22/22 09/22/22 Range/Units 18:34 18:34 18:34 WBC (4.5-11.0) K/mcL RBC (4.63-6.08) M/mcL Hgb (13.7-17.5) g/dL Hct (40.1-51.0) % POC Hct (41-55) MCV (80.0-100.0) fL MCH (26.0-34.0) pg MCHC (31.0-36.0) g/dL RDW (11.5-14.5) % Plt Count (140-440) K/mcL MPV (8.8-12.5) fL Immature Gran % (Auto) (0.0-0.5) % Neut % (Auto) (38.0-78.0) % Lymph % (Auto) (15.5-49.0) % Ogle % (Auto) (1.0-12.0) % Eos % (Auto) (0.0-7.0) % Baso % (Auto) (0.0-2.0) % Lymph # (Auto) (1.50-4.80) K/mcL Ogle # (Auto) (0.10-0.90) K/mcL Eos # (Auto) (0.00-0.70) K/mcL Baso # (Auto) (0.00-0.30) K/mcL Seg Neutrophils % 74 (38-78) % Band Neutrophils % 9 (0-10) % Lymphocytes % 6 L (15-49) % Monocytes % (Manual) 10 (1-12) % Eosinophils % (Manual) 1 (0-7) % Immature Gran # (0.00-0.05) K/mcl Absolute Neutrophils (1.80-8.00) K/mcL Platelet Estimate Normal (Normal) RBC Morphology Normal (Normal) PT 12.9 (11.9-14.5) sec INR 0.9 (0.9-1.1) D-Dimer (0.27-0.50) ug/mL POC VBG pH (7.32-7.42) POC VBG pCO2 at Temp (41-51) POC VBG pO2 (25-40) POC VBG HCO3 (24-28) POC VBG Total CO2 (25-29) POC Venous O2 Sat (40-70) POC VBG Base Excess (-2-2) VBG Lactic Acid (0.5-2) POC Sodium (133-145) POC Potassium (3.3-5.1) POC Chloride (96-108) POC Total CO2 (22-30) POC Anion Gap (8.0-16.0) POC BUN (6-20) POC Creatinine (0.6-1.2) POC Glucose (70-105) POC WB Ioniz Calcium (1.16-1.32) Magnesium (1.6-2.5) mg/dL Total Bilirubin (0.1-1.0) mg/dL Direct Bilirubin (0-0.3) mg/dL GGT (8-61) U/L AST (<40) U/L ALT (<40) U/L Alkaline Phosphatase (39-117) U/L Ammonia (16-60) umol/L Lactate Dehydrogenase 383 H (135-225) U/L Total Creatine Kinase (24-195) U/L C-Reactive Protein (0.03-0.80) mg/dL Total Protein (5.9-8.4) gm/dL Albumin (3.2-5.2) gm/dL Globulin (2.2-3.7) gm/dL Procalcitonin (<0.10) ng/mL TSH (0.27-5.01) uIU/mL POC Troponin I (0.00-0.08) 09/22/22 09/22/22 09/22/22 Range/Units 18:36 18:36 18:38 WBC (4.5-11.0) K/mcL RBC (4.63-6.08) M/mcL Hgb (13.7-17.5) g/dL Hct (40.1-51.0) % POC Hct (41-55) MCV (80.0-100.0) fL MCH (26.0-34.0) pg MCHC (31.0-36.0) g/dL RDW (11.5-14.5) % Plt Count (140-440) K/mcL MPV (8.8-12.5) fL Immature Gran % (Auto) (0.0-0.5) % Neut % (Auto) (38.0-78.0) % Lymph % (Auto) (15.5-49.0) % Ogle % (Auto) (1.0-12.0) % Eos % (Auto) (0.0-7.0) % Baso % (Auto) (0.0-2.0) % Lymph # (Auto) (1.50-4.80) K/mcL Ogle # (Auto) (0.10-0.90) K/mcL Eos # (Auto) (0.00-0.70) K/mcL Baso # (Auto) (0.00-0.30) K/mcL Seg Neutrophils % (38-78) % Band Neutrophils % (0-10) % Lymphocytes % (15-49) % Monocytes % (Manual) (1-12) % Eosinophils % (Manual) (0-7) % Immature Gran # (0.00-0.05) K/mcl Absolute Neutrophils (1.80-8.00) K/mcL Platelet Estimate (Normal) RBC Morphology (Normal) PT (11.9-14.5) sec INR (0.9-1.1) D-Dimer (0.27-0.50) ug/mL POC VBG pH 7.33 (7.32-7.42) POC VBG pCO2 at Temp 43.2 (41-51) POC VBG pO2 45 H (25-40) POC VBG HCO3 22.9 L (24-28) POC VBG Total CO2 24.0 L (25-29) POC Venous O2 Sat 78.0 H (40-70) POC VBG Base Excess -3.0 L (-2-2) VBG Lactic Acid 3.6 H (0.5-2) POC Sodium (133-145) POC Potassium (3.3-5.1) POC Chloride (96-108) POC Total CO2 (22-30) POC Anion Gap (8.0-16.0) POC BUN (6-20) POC Creatinine (0.6-1.2) POC Glucose (70-105) POC WB Ioniz Calcium (1.16-1.32) Magnesium (1.6-2.5) mg/dL Total Bilirubin (0.1-1.0) mg/dL Direct Bilirubin (0-0.3) mg/dL GGT (8-61) U/L AST (<40) U/L ALT (<40) U/L Alkaline Phosphatase (39-117) U/L Ammonia (16-60) umol/L Lactate Dehydrogenase (135-225) U/L Total Creatine Kinase (24-195) U/L C-Reactive Protein (0.03-0.80) mg/dL Total Protein (5.9-8.4) gm/dL Albumin (3.2-5.2) gm/dL Globulin (2.2-3.7) gm/dL Procalcitonin 0.13 H (<0.10) ng/mL TSH (0.27-5.01) uIU/mL POC Troponin I 0.03 (0.00-0.08) 09/22/22 09/22/22 09/22/22 Range/Units 18:53 21:09 21:09 WBC (4.5-11.0) K/mcL RBC (4.63-6.08) M/mcL Hgb (13.7-17.5) g/dL Hct (40.1-51.0) % POC Hct (41-55) MCV (80.0-100.0) fL MCH (26.0-34.0) pg MCHC (31.0-36.0) g/dL RDW (11.5-14.5) % Plt Count (140-440) K/mcL MPV (8.8-12.5) fL Immature Gran % (Auto) (0.0-0.5) % Neut % (Auto) (38.0-78.0) % Lymph % (Auto) (15.5-49.0) % Ogle % (Auto) (1.0-12.0) % Eos % (Auto) (0.0-7.0) % Baso % (Auto) (0.0-2.0) % Lymph # (Auto) (1.50-4.80) K/mcL Ogle # (Auto) (0.10-0.90) K/mcL Eos # (Auto) (0.00-0.70) K/mcL Baso # (Auto) (0.00-0.30) K/mcL Seg Neutrophils % (38-78) % Band Neutrophils % (0-10) % Lymphocytes % (15-49) % Monocytes % (Manual) (1-12) % Eosinophils % (Manual) (0-7) % Immature Gran # (0.00-0.05) K/mcl Absolute Neutrophils (1.80-8.00) K/mcL Platelet Estimate (Normal) RBC Morphology (Normal) PT (11.9-14.5) sec INR (0.9-1.1) D-Dimer 1.81 H (0.27-0.50) ug/mL POC VBG pH (7.32-7.42) POC VBG pCO2 at Temp (41-51) POC VBG pO2 (25-40) POC VBG HCO3 (24-28) POC VBG Total CO2 (25-29) POC Venous O2 Sat (40-70) POC VBG Base Excess (-2-2) VBG Lactic Acid (0.5-2) POC Sodium (133-145) POC Potassium (3.3-5.1) POC Chloride (96-108) POC Total CO2 (22-30) POC Anion Gap (8.0-16.0) POC BUN (6-20) POC Creatinine (0.6-1.2) POC Glucose (70-105) POC WB Ioniz Calcium (1.16-1.32) Magnesium (1.6-2.5) mg/dL Total Bilirubin (0.1-1.0) mg/dL Direct Bilirubin (0-0.3) mg/dL GGT 13 (8-61) U/L AST (<40) U/L ALT (<40) U/L Alkaline Phosphatase (39-117) U/L Ammonia 114 H (16-60) umol/L Lactate Dehydrogenase (135-225) U/L Total Creatine Kinase 4811 H (24-195) U/L C-Reactive Protein 4.60 H (0.03-0.80) mg/dL Total Protein (5.9-8.4) gm/dL Albumin (3.2-5.2) gm/dL Globulin (2.2-3.7) gm/dL Procalcitonin (<0.10) ng/mL TSH (0.27-5.01) uIU/mL POC Troponin I (0.00-0.08) Discharge Plan Patient/Caregiver Discharge Instructions 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 by 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 PROFESSOR/PA only: No Clinical Impression: Dehydration, Community acquired pneumonia, Acute hepatic encephalopathy, Rhabdomyolysis Patient Disposition: Still a Patient Follow up with: Kameron Forbes DO [Primary Care Provider] - Prescriptions: No Action (DME) FreeStyle Esther 14 Day [place] Misc See Rx Instructions .ROUTE .MEDSUPPLY Qty: 6 3RF Rx Instructions: As directed prochlorperazine maleate 5 mg tablet 5 mg PO BID PRN (Reason: Nausea) (DME) FreeStyle Esther 14 Day Sensor Kit See Rx Instructions .ROUTE .MEDSUPPLY Qty: 6 3RF Rx Instructions: As directed hydroxyzine HCl 25 mg tablet 25 mg PO BID MDD 2 PRN (Reason: anxiety) Qty: 60 0RF atorvastatin 40 mg tablet 40 mg PO QDAY Qty: 90 1RF Jardiance 25 mg tablet 25 mg PO QDAY Qty: 90 1RF lisinopril 10 mg tablet 10 mg PO QDAY Qty: 90 1RF aspirin [Adult Aspirin Regimen] 81 mg tablet,delayed release (DR/EC) 81 mg PO QDAY naloxone 4 mg/actuation spray,non-aerosol 4 mg INTRANASAL .COMPLEX PRN (Reason: opioid overdose) Qty: 2 0RF Rx Instructions: administer 1 dose in one nostril. Call 911. If no response after 3-5 minutes, administer second dose PRN; duloxetine 60 mg capsule,delayed release(DR/EC) 60 mg PO QHS Qty: 90 3RF lorazepam [Ativan] 1 mg tablet 1 mg PO QHS PRN (Reason: anxiety) Qty: 30 2RF pregabalin 75 mg capsule 75 mg PO QAM Qty: 90 2RF pregabalin 150 mg capsule 150 mg PO QHS Qty: 180 2RF morphine [MS Contin] 60 mg tablet extended release 60 mg PO BID MDD 2 Qty: 60 0RF Rx Instructions: *MUST LAST 30 DAYS* P/U 10/21, Start 10/22 oxycodone 10 mg tablet 10 - 20 mg PO .Q4-6H MDD 6 PRN (Reason: pain) Qty: 180 0RF Rx Instructions: *MUST LAST 30 DAYS* P/U 11/05, Start 11/06 cilostazol 50 mg tablet 50 mg PO BID Qty: 30 0RF clopidogrel [Plavix] 75 mg tablet 75 mg PO QDAY varenicline [Chantix] 1 mg tablet 1 mg PO BID escitalopram oxalate 10 mg tablet 10 mg PO QDAY Qty: 90 3RF multivitamin Tablet 1 tab PO QDAY metformin 1,000 mg tablet,ER luke.retention 24 hr 500 mg PO QDAY
[2022-09-22 18:40] LABS: POC Calcium, Ionized 1.14 (1.16-1.32); POC Creatinine 1.4 (0.6-1.2); POC Potassium 4.8 (3.3-5.1)
[2022-09-22 19:14] LABS: Basophils # (Auto) 0.03 K/mcL (0.00-0.30); Basophils % (Auto) 0.3 % (0.0-2.0); Eosinophils # (Auto) 0.07 K/mcL (0.00-0.70); Eosinophils % (Auto) 0.7 % (0.0-7.0); Hematocrit 29.3 % (40.1-51.0); Hemoglobin 9.1 g/dL (13.7-17.5); Lymphocytes % (Auto) 8.3 % (15.5-49.0); Mean Cell Volume 83.5 fL (80.0-100.0); Mean Corpuscular HGB Conc 31.1 g/dL (31.0-36.0); Mean Platelet Volume 9.6 fL (8.8-12.5); Monocytes # (Auto) 0.98 K/mcL (0.10-0.90); Monocytes % (Auto) 10.2 % (1.0-12.0); Neutrophils % (Auto) 79.7 % (38.0-78.0); Platelet Count 344 K/mcL (140-440); RBC 3.51 M/mcL (4.63-6.08); WBC 9.6 K/mcL (4.5-11.0)
[2022-09-22 19:43] LABS: ALT/SGPT 32 U/L (<40); AST/SGOT 105 U/L (<40); Albumin 3.9 gm/dL (3.2-5.2); Alkaline Phosphatase 123 U/L (39-117); Bilirubin,Direct < 0.2 mg/dL (0-0.3); Bilirubin,Total 0.2 mg/dL (0.1-1.0); Globulin 3.4 gm/dL (2.2-3.7); Thyroid Stimulating Hormone 5.46 uIU/mL (0.27-5.01)
[2022-09-22] MEDS ORDERED: LACTULOSE 20 GM/30 ML ORAL.SOL PO ONE (19:55)
[2022-09-22] MEDS ORDERED: cefTRIAXone 1 GM VIAL IV ONE (19:58)
[2022-09-22 21:33] LABS: C-Reactive Protein 4.6 mg/dL (0.03-0.80)
[2022-09-22 21:46] LABS: INR 0.9 (0.9-1.1); Prothrombin Time 12.9 sec (11.9-14.5)
[2022-09-22 22:12] LABS: Band Neutrophils % 9 % (0-10); Eosinophils % (Manual) 1 % (0-7); Lymphocytes % 6 % (15-49); Monocytes % (Manual) 10 % (1-12); Platelet Estimate NORMAL (Normal); RBC Morphology NORMAL (Normal); Segmented Neutrophils % 74 % (38-78)
[2022-09-22 22:38] LABS: Prolactin 25.4 ng/mL (4.0-15.2)
[2022-09-22 22:54] LABS: Appearance,Urine CLEAR (Clear); Bilirubin,Urine Negative (Negative); Color,Urine YELLOW; Culture Indicated,Urine No; Glucose,Urine (UA) 150 mg/dL (Negative); Ketones,Urine Negative (Negative); Leukocyte Esterase,Urine Negative /uL (Negative); Mucus,Urine FEW /hpf; Nitrate,Urine Negative (Negative); Protein,Urine Negative (Negative); Specific Gravity,Urine 1.015 (1.000-1.035); Urine RBC 5 /hpf (0-3); Urine Squamous Epithelial Cell < 1 /hpf (0-4); Urine WBC 1 /hpf (0-4); Urobilinogen,Urine Negative
--- NOTE | 2022-09-22 23:00 | Emergency Department Note ---
Course Course Course Narrative: Patient is a 72-year-old male signed out to me by Dangelo Arroyo. Briefly, patient presented due to confusion and weakness. Patient has findings concerning for possible pneumonia, rhabdomyolysis, and dilated common bile duct. Cruz had spoken to Dr. Amador and Dr. Brown prior to signout. Dr. Amador requested the patient stay in the emergency department until MRCP could be performed in the morning. Vital Signs Vital signs: Vital Signs Pulse Rate 109 H 09/22/22 18:20 Respiratory Rate 18 09/22/22 18:20 Blood Pressure 136/68 09/22/22 18:20 Pulse Oximetry (%) 92 09/22/22 18:20 Oxygen Delivery Method Room Air 09/22/22 18:20 Pulse Rate 85 09/23/22 06:49 Respiratory Rate 8 L 09/23/22 06:49 Blood Pressure 113/56 09/23/22 06:00 Pulse Oximetry (%) 96 09/23/22 06:49 Oxygen Delivery Method Nasal Cannula 09/23/22 02:40 Oxygen Flow Rate (L/min) 1 09/23/22 02:40 MDM MDM Narrative Medical decision making narrative: Narrative: Patient is a 72-year-old male who presents to the emergency department due to confusion and weakness. Patient has findings consistent with myolysis, concerns for pneumonia, and possible choledocholithiasis. Patient was requiring oxygen via nasal cannula throughout the night. MRCP has been ordered and is pending. Just prior to signout radiology called and stated they cannot do the MRCP because patient has an intrathecal pain pump, and this pump settings can be altered by the MRI. Dr. Escalante feels uncomfortable with performing this MRI because there is not a pain management physician on-call at this time. I have spoken with Dr. Amador, and he has stated that he will see patient in and speak to Dr. Yepez about a plan. Patient has been signed out to Dr. Yepez. Lab Data 09/22/22 18:34 09/23/22 04:56 Labs: Lab Results 09/22/22 09/22/22 09/22/22 Range/Units 18:32 18:34 18:34 WBC 9.6 (4.5-11.0) K/mcL RBC 3.51 L (4.63-6.08) M/mcL Hgb 9.1 L (13.7-17.5) g/dL Hct 29.3 L (40.1-51.0) % POC Hct 30.0 L (41-55) MCV 83.5 (80.0-100.0) fL MCH 25.9 L (26.0-34.0) pg MCHC 31.1 (31.0-36.0) g/dL RDW 17.0 H (11.5-14.5) % Plt Count 344 (140-440) K/mcL MPV 9.6 (8.8-12.5) fL Immature Gran % (Auto) 0.8 H (0.0-0.5) % Neut % (Auto) 79.7 H (38.0-78.0) % Lymph % (Auto) 8.3 L (15.5-49.0) % Wayne % (Auto) 10.2 (1.0-12.0) % Eos % (Auto) 0.7 (0.0-7.0) % Baso % (Auto) 0.3 (0.0-2.0) % Lymph # (Auto) 0.80 L (1.50-4.80) K/mcL Wayne # (Auto) 0.98 H (0.10-0.90) K/mcL Eos # (Auto) 0.07 (0.00-0.70) K/mcL Baso # (Auto) 0.03 (0.00-0.30) K/mcL Seg Neutrophils % (38-78) % Band Neutrophils % (0-10) % Lymphocytes % (15-49) % Monocytes % (Manual) (1-12) % Eosinophils % (Manual) (0-7) % Immature Gran # 0.08 H (0.00-0.05) K/mcl Absolute Neutrophils 7.68 (1.80-8.00) K/mcL Platelet Estimate (Normal) RBC Morphology (Normal) PT (11.9-14.5) sec INR (0.9-1.1) D-Dimer (0.27-0.50) ug/mL POC VBG pH (7.32-7.42) POC VBG pCO2 at Temp (41-51) POC VBG pO2 (25-40) POC VBG HCO3 (24-28) POC VBG Total CO2 (25-29) POC Venous O2 Sat (40-70) POC VBG Base Excess (-2-2) VBG Lactic Acid (0.5-2) POC Sodium 134 (133-145) Sodium (133-145) mmol/L POC Potassium 4.8 (3.3-5.1) Potassium (3.3-5.1) mmol/L POC Chloride 102 (96-108) Chloride (96-108) mmol/L Carbon Dioxide (22-30) mmol/L POC Total CO2 23.0 (22-30) Anion Gap (8.0-16.0) POC Anion Gap 15.0 (8.0-16.0) POC BUN 18 (6-20) BUN (8-23) mg/dL Creatinine (0.7-1.2) mg/dL POC Creatinine 1.4 H (0.6-1.2) GFR Calculation Glucose (70-105) mg/dL POC Glucose 193 H (70-105) Uric Acid (2.5-8.0) mg/dL Calcium (8.6-10.4) mg/dL POC WB Ioniz Calcium 1.14 L (1.16-1.32) Phosphorus (2.5-4.5) mg/dL Magnesium 1.9 (1.6-2.5) mg/dL Total Bilirubin 0.2 (0.1-1.0) mg/dL Direct Bilirubin < 0.2 (0-0.3) mg/dL GGT (8-61) U/L AST 105 H (<40) U/L ALT 32 (<40) U/L Alkaline Phosphatase 123 H (39-117) U/L Ammonia (16-60) umol/L Lactate Dehydrogenase (135-225) U/L Total Creatine Kinase (24-195) U/L C-Reactive Protein (0.03-0.80) mg/dL NT-Pro-B Natriuret Pep (<125.0) pg/mL Total Protein 7.3 (5.9-8.4) gm/dL Albumin 3.9 (3.2-5.2) gm/dL Globulin 3.4 (2.2-3.7) gm/dL Albumin/Globulin Ratio (1.0-2.3) Triglycerides (<150) mg/dL Procalcitonin (<0.10) ng/mL TSH 5.46 H (0.27-5.01) uIU/mL Prolactin (4.0-15.2) ng/mL Urine Color Urine Appearance (Clear) Urine pH (5.0-9.0) Ur Specific [place] (1.000-1.035) Urine Protein (Negative) mg/dL Urine Glucose (UA) (Negative) mg/dL Urine Ketones (Negative) mg/dL Urine Occult Blood (Negative) mg/dL Urine Nitrate (Negative) Urine Bilirubin (Negative) mg/dL Urine Urobilinogen mg/dL Ur Leukocyte Esterase (Negative) /uL Urine RBC (0-3) /hpf Urine WBC (0-4) /hpf Ur Squamous Epith Cells (0-4) /hpf Urine Bacteria (0) /hpf Urine Mucus (None) /hpf Ur Culture Indicated? Urine Opiates Screen Ur Oxycodone Screen Urine Methadone Screen Ur Methadone Confirm Ur Barbiturates Screen Ur Barbiturate Confirm Ur Phencyclidine Scrn Urine PCP Confirm Ur Amphetamines Screen U Amphetamines Confirm U Benzodiazepines Scrn Ur Benzodiazepine, Qnt Urine Cocaine Screen Urine Cocaine Confirm U Cannabinoids Confirm U Marijuana (THC) Screen POC Troponin I (0.00-0.08) 09/22/22 09/22/22 09/22/22 Range/Units 18:34 18:34 18:34 WBC (4.5-11.0) K/mcL RBC (4.63-6.08) M/mcL Hgb (13.7-17.5) g/dL Hct (40.1-51.0) % POC Hct (41-55) MCV (80.0-100.0) fL MCH (26.0-34.0) pg MCHC (31.0-36.0) g/dL RDW (11.5-14.5) % Plt Count (140-440) K/mcL MPV (8.8-12.5) fL Immature Gran % (Auto) (0.0-0.5) % Neut % (Auto) (38.0-78.0) % Lymph % (Auto) (15.5-49.0) % [place] % (Auto) (1.0-12.0) % Eos % (Auto) (0.0-7.0) % Baso % (Auto) (0.0-2.0) % Lymph # (Auto) (1.50-4.80) K/mcL [place] # (Auto) (0.10-0.90) K/mcL Eos # (Auto) (0.00-0.70) K/mcL Baso # (Auto) (0.00-0.30) K/mcL Seg Neutrophils % 74 (38-78) % Band Neutrophils % 9 (0-10) % Lymphocytes % 6 L (15-49) % Monocytes % (Manual) 10 (1-12) % Eosinophils % (Manual) 1 (0-7) % Immature Gran # (0.00-0.05) K/mcl Absolute Neutrophils (1.80-8.00) K/mcL Platelet Estimate Normal (Normal) RBC Morphology Normal (Normal) PT 12.9 (11.9-14.5) sec INR 0.9 (0.9-1.1) D-Dimer (0.27-0.50) ug/mL POC VBG pH (7.32-7.42) POC VBG pCO2 at Temp (41-51) POC VBG pO2 (25-40) POC VBG HCO3 (24-28) POC VBG Total CO2 (25-29) POC Venous O2 Sat (40-70) POC VBG Base Excess (-2-2) VBG Lactic Acid (0.5-2) POC Sodium (133-145) Sodium (133-145) mmol/L POC Potassium (3.3-5.1) Potassium (3.3-5.1) mmol/L POC Chloride (96-108) Chloride (96-108) mmol/L Carbon Dioxide (22-30) mmol/L POC Total CO2 (22-30) Anion Gap (8.0-16.0) POC Anion Gap (8.0-16.0) POC BUN (6-20) BUN (8-23) mg/dL Creatinine (0.7-1.2) mg/dL POC Creatinine (0.6-1.2) GFR Calculation Glucose (70-105) mg/dL POC Glucose (70-105) Uric Acid (2.5-8.0) mg/dL Calcium (8.6-10.4) mg/dL POC WB Ioniz Calcium (1.16-1.32) Phosphorus (2.5-4.5) mg/dL Magnesium (1.6-2.5) mg/dL Total Bilirubin (0.1-1.0) mg/dL Direct Bilirubin (0-0.3) mg/dL GGT (8-61) U/L AST (<40) U/L ALT (<40) U/L Alkaline Phosphatase (39-117) U/L Ammonia (16-60) umol/L Lactate Dehydrogenase (135-225) U/L Total Creatine Kinase (24-195) U/L C-Reactive Protein (0.03-0.80) mg/dL NT-Pro-B Natriuret Pep (<125.0) pg/mL Total Protein (5.9-8.4) gm/dL Albumin (3.2-5.2) gm/dL Globulin (2.2-3.7) gm/dL Albumin/Globulin Ratio (1.0-2.3) Triglycerides (<150) mg/dL Procalcitonin (<0.10) ng/mL TSH (0.27-5.01) uIU/mL Prolactin 25.4 H (4.0-15.2) ng/mL Urine Color Urine Appearance (Clear) Urine pH (5.0-9.0) Ur Specific [place] (1.000-1.035) Urine Protein (Negative) mg/dL Urine Glucose (UA) (Negative) mg/dL Urine Ketones (Negative) mg/dL Urine Occult Blood (Negative) mg/dL Urine Nitrate (Negative) Urine Bilirubin (Negative) mg/dL Urine Urobilinogen mg/dL Ur Leukocyte Esterase (Negative) /uL Urine RBC (0-3) /hpf Urine WBC (0-4) /hpf Ur Squamous Epith Cells (0-4) /hpf Urine Bacteria (0) /hpf Urine Mucus (None) /hpf Ur Culture Indicated? Urine Opiates Screen Ur Oxycodone Screen Urine Methadone Screen Ur Methadone Confirm Ur Barbiturates Screen Ur Barbiturate Confirm Ur Phencyclidine Scrn Urine PCP Confirm Ur Amphetamines Screen U Amphetamines Confirm U Benzodiazepines Scrn Ur Benzodiazepine, Qnt Urine Cocaine Screen Urine Cocaine Confirm U Cannabinoids Confirm U Marijuana (THC) Screen POC Troponin I (0.00-0.08) 09/22/22 09/22/22 09/22/22 Range/Units 18:34 18:36 18:36 WBC (4.5-11.0) K/mcL RBC (4.63-6.08) M/mcL Hgb (13.7-17.5) g/dL Hct (40.1-51.0) % POC Hct (41-55) MCV (80.0-100.0) fL MCH (26.0-34.0) pg MCHC (31.0-36.0) g/dL RDW (11.5-14.5) % Plt Count (140-440) K/mcL MPV (8.8-12.5) fL Immature Gran % (Auto) (0.0-0.5) % Neut % (Auto) (38.0-78.0) % Lymph % (Auto) (15.5-49.0) % [place] % (Auto) (1.0-12.0) % Eos % (Auto) (0.0-7.0) % Baso % (Auto) (0.0-2.0) % Lymph # (Auto) (1.50-4.80) K/mcL [place] # (Auto) (0.10-0.90) K/mcL Eos # (Auto) (0.00-0.70) K/mcL Baso # (Auto) (0.00-0.30) K/mcL Seg Neutrophils % (38-78) % Band Neutrophils % (0-10) % Lymphocytes % (15-49) % Monocytes % (Manual) (1-12) % Eosinophils % (Manual) (0-7) % Immature Gran # (0.00-0.05) K/mcl Absolute Neutrophils (1.80-8.00) K/mcL Platelet Estimate (Normal) RBC Morphology (Normal) PT (11.9-14.5) sec INR (0.9-1.1) D-Dimer (0.27-0.50) ug/mL POC VBG pH 7.33 (7.32-7.42) POC VBG pCO2 at Temp 43.2 (41-51) POC VBG pO2 45 H (25-40) POC VBG HCO3 22.9 L (24-28) POC VBG Total CO2 24.0 L (25-29) POC Venous O2 Sat 78.0 H (40-70) POC VBG Base Excess -3.0 L (-2-2) VBG Lactic Acid 3.6 H (0.5-2) POC Sodium (133-145) Sodium (133-145) mmol/L POC Potassium (3.3-5.1) Potassium (3.3-5.1) mmol/L POC Chloride (96-108) Chloride (96-108) mmol/L Carbon Dioxide (22-30) mmol/L POC Total CO2 (22-30) Anion Gap (8.0-16.0) POC Anion Gap (8.0-16.0) POC BUN (6-20) BUN (8-23) mg/dL Creatinine (0.7-1.2) mg/dL POC Creatinine (0.6-1.2) GFR Calculation Glucose (70-105) mg/dL POC Glucose (70-105) Uric Acid (2.5-8.0) mg/dL Calcium (8.6-10.4) mg/dL POC WB Ioniz Calcium (1.16-1.32) Phosphorus (2.5-4.5) mg/dL Magnesium (1.6-2.5) mg/dL Total Bilirubin (0.1-1.0) mg/dL Direct Bilirubin (0-0.3) mg/dL GGT (8-61) U/L AST (<40) U/L ALT (<40) U/L Alkaline Phosphatase (39-117) U/L Ammonia (16-60) umol/L Lactate Dehydrogenase 383 H (135-225) U/L Total Creatine Kinase (24-195) U/L C-Reactive Protein (0.03-0.80) mg/dL NT-Pro-B Natriuret Pep (<125.0) pg/mL Total Protein (5.9-8.4) gm/dL Albumin (3.2-5.2) gm/dL Globulin (2.2-3.7) gm/dL Albumin/Globulin Ratio (1.0-2.3) Triglycerides (<150) mg/dL Procalcitonin 0.13 H (<0.10) ng/mL TSH (0.27-5.01) uIU/mL Prolactin (4.0-15.2) ng/mL Urine Color Urine Appearance (Clear) Urine pH (5.0-9.0) Ur Specific [place] (1.000-1.035) Urine Protein (Negative) mg/dL Urine Glucose (UA) (Negative) mg/dL Urine Ketones (Negative) mg/dL Urine Occult Blood (Negative) mg/dL Urine Nitrate (Negative) Urine Bilirubin (Negative) mg/dL Urine Urobilinogen mg/dL Ur Leukocyte Esterase (Negative) /uL Urine RBC (0-3) /hpf Urine WBC (0-4) /hpf Ur Squamous Epith Cells (0-4) /hpf Urine Bacteria (0) /hpf Urine Mucus (None) /hpf Ur Culture Indicated? Urine Opiates Screen Ur Oxycodone Screen Urine Methadone Screen Ur Methadone Confirm Ur Barbiturates Screen Ur Barbiturate Confirm Ur Phencyclidine Scrn Urine PCP Confirm Ur Amphetamines Screen U Amphetamines Confirm U Benzodiazepines Scrn Ur Benzodiazepine, Qnt Urine Cocaine Screen Urine Cocaine Confirm U Cannabinoids Confirm U Marijuana (THC) Screen POC Troponin I (0.00-0.08) 09/22/22 09/22/22 09/22/22 Range/Units 18:38 18:53 21:09 WBC (4.5-11.0) K/mcL RBC (4.63-6.08) M/mcL Hgb (13.7-17.5) g/dL Hct (40.1-51.0) % POC Hct (41-55) MCV (80.0-100.0) fL MCH (26.0-34.0) pg MCHC (31.0-36.0) g/dL RDW (11.5-14.5) % Plt Count (140-440) K/mcL MPV (8.8-12.5) fL Immature Gran % (Auto) (0.0-0.5) % Neut % (Auto) (38.0-78.0) % Lymph % (Auto) (15.5-49.0) % [place] % (Auto) (1.0-12.0) % Eos % (Auto) (0.0-7.0) % Baso % (Auto) (0.0-2.0) % Lymph # (Auto) (1.50-4.80) K/mcL [place] # (Auto) (0.10-0.90) K/mcL Eos # (Auto) (0.00-0.70) K/mcL Baso # (Auto) (0.00-0.30) K/mcL Seg Neutrophils % (38-78) % Band Neutrophils % (0-10) % Lymphocytes % (15-49) % Monocytes % (Manual) (1-12) % Eosinophils % (Manual) (0-7) % Immature Gran # (0.00-0.05) K/mcl Absolute Neutrophils (1.80-8.00) K/mcL Platelet Estimate (Normal) RBC Morphology (Normal) PT (11.9-14.5) sec INR (0.9-1.1) D-Dimer (0.27-0.50) ug/mL POC VBG pH (7.32-7.42) POC VBG pCO2 at Temp (41-51) POC VBG pO2 (25-40) POC VBG HCO3 (24-28) POC VBG Total CO2 (25-29) POC Venous O2 Sat (40-70) POC VBG Base Excess (-2-2) VBG Lactic Acid (0.5-2) POC Sodium (133-145) Sodium (133-145) mmol/L POC Potassium (3.3-5.1) Potassium (3.3-5.1) mmol/L POC Chloride (96-108) Chloride (96-108) mmol/L Carbon Dioxide (22-30) mmol/L POC Total CO2 (22-30) Anion Gap (8.0-16.0) POC Anion Gap (8.0-16.0) POC BUN (6-20) BUN (8-23) mg/dL Creatinine (0.7-1.2) mg/dL POC Creatinine (0.6-1.2) GFR Calculation Glucose (70-105) mg/dL POC Glucose (70-105) Uric Acid (2.5-8.0) mg/dL Calcium (8.6-10.4) mg/dL POC WB Ioniz Calcium (1.16-1.32) Phosphorus (2.5-4.5) mg/dL Magnesium (1.6-2.5) mg/dL Total Bilirubin (0.1-1.0) mg/dL Direct Bilirubin (0-0.3) mg/dL GGT 13 (8-61) U/L AST (<40) U/L ALT (<40) U/L Alkaline Phosphatase (39-117) U/L Ammonia 114 H (16-60) umol/L Lactate Dehydrogenase (135-225) U/L Total Creatine Kinase 4811 H (24-195) U/L C-Reactive Protein 4.60 H (0.03-0.80) mg/dL NT-Pro-B Natriuret Pep (<125.0) pg/mL Total Protein (5.9-8.4) gm/dL Albumin (3.2-5.2) gm/dL Globulin (2.2-3.7) gm/dL Albumin/Globulin Ratio (1.0-2.3) Triglycerides (<150) mg/dL Procalcitonin (<0.10) ng/mL TSH (0.27-5.01) uIU/mL Prolactin (4.0-15.2) ng/mL Urine Color Urine Appearance (Clear) Urine pH (5.0-9.0) Ur Specific [place] (1.000-1.035) Urine Protein (Negative) mg/dL Urine Glucose (UA) (Negative) mg/dL Urine Ketones (Negative) mg/dL Urine Occult Blood (Negative) mg/dL Urine Nitrate (Negative) Urine Bilirubin (Negative) mg/dL Urine Urobilinogen mg/dL Ur Leukocyte Esterase (Negative) /uL Urine RBC (0-3) /hpf Urine WBC (0-4) /hpf Ur Squamous Epith Cells (0-4) /hpf Urine Bacteria (0) /hpf Urine Mucus (None) /hpf Ur Culture Indicated? Urine Opiates Screen Ur Oxycodone Screen Urine Methadone Screen Ur Methadone Confirm Ur Barbiturates Screen Ur Barbiturate Confirm Ur Phencyclidine Scrn Urine PCP Confirm Ur Amphetamines Screen U Amphetamines Confirm U Benzodiazepines Scrn Ur Benzodiazepine, Qnt Urine Cocaine Screen Urine Cocaine Confirm U Cannabinoids Confirm U Marijuana (THC) Screen POC Troponin I 0.03 (0.00-0.08) 09/22/22 09/22/22 09/22/22 Range/Units 21:09 22:19 22:19 WBC (4.5-11.0) K/mcL RBC (4.63-6.08) M/mcL Hgb (13.7-17.5) g/dL Hct (40.1-51.0) % POC Hct (41-55) MCV (80.0-100.0) fL MCH (26.0-34.0) pg MCHC (31.0-36.0) g/dL RDW (11.5-14.5) % Plt Count (140-440) K/mcL MPV (8.8-12.5) fL Immature Gran % (Auto) (0.0-0.5) % Neut % (Auto) (38.0-78.0) % Lymph % (Auto) (15.5-49.0) % [place] % (Auto) (1.0-12.0) % Eos % (Auto) (0.0-7.0) % Baso % (Auto) (0.0-2.0) % Lymph # (Auto) (1.50-4.80) K/mcL [place] # (Auto) (0.10-0.90) K/mcL Eos # (Auto) (0.00-0.70) K/mcL Baso # (Auto) (0.00-0.30) K/mcL Seg Neutrophils % (38-78) % Band Neutrophils % (0-10) % Lymphocytes % (15-49) % Monocytes % (Manual) (1-12) % Eosinophils % (Manual) (0-7) % Immature Gran # (0.00-0.05) K/mcl Absolute Neutrophils (1.80-8.00) K/mcL Platelet Estimate (Normal) RBC Morphology (Normal) PT (11.9-14.5) sec INR (0.9-1.1) D-Dimer 1.81 H (0.27-0.50) ug/mL POC VBG pH (7.32-7.42) POC VBG pCO2 at Temp (41-51) POC VBG pO2 (25-40) POC VBG HCO3 (24-28) POC VBG Total CO2 (25-29) POC Venous O2 Sat (40-70) POC VBG Base Excess (-2-2) VBG Lactic Acid (0.5-2) POC Sodium (133-145) Sodium (133-145) mmol/L POC Potassium (3.3-5.1) Potassium (3.3-5.1) mmol/L POC Chloride (96-108) Chloride (96-108) mmol/L Carbon Dioxide (22-30) mmol/L POC Total CO2 (22-30) Anion Gap (8.0-16.0) POC Anion Gap (8.0-16.0) POC BUN (6-20) BUN (8-23) mg/dL Creatinine (0.7-1.2) mg/dL POC Creatinine (0.6-1.2) GFR Calculation Glucose (70-105) mg/dL POC Glucose (70-105) Uric Acid (2.5-8.0) mg/dL Calcium (8.6-10.4) mg/dL POC WB Ioniz Calcium (1.16-1.32) Phosphorus (2.5-4.5) mg/dL Magnesium (1.6-2.5) mg/dL Total Bilirubin (0.1-1.0) mg/dL Direct Bilirubin (0-0.3) mg/dL GGT (8-61) U/L AST (<40) U/L ALT (<40) U/L Alkaline Phosphatase (39-117) U/L Ammonia (16-60) umol/L Lactate Dehydrogenase (135-225) U/L Total Creatine Kinase (24-195) U/L C-Reactive Protein (0.03-0.80) mg/dL NT-Pro-B Natriuret Pep (<125.0) pg/mL Total Protein (5.9-8.4) gm/dL Albumin (3.2-5.2) gm/dL Globulin (2.2-3.7) gm/dL Albumin/Globulin Ratio (1.0-2.3) Triglycerides (<150) mg/dL Procalcitonin (<0.10) ng/mL TSH (0.27-5.01) uIU/mL Prolactin (4.0-15.2) ng/mL Urine Color Yellow Urine Appearance Clear (Clear) Urine pH 5.0 (5.0-9.0) Ur Specific [place] 1.015 (1.000-1.035) Urine Protein Negative (Negative) mg/dL Urine Glucose (UA) 150 A (Negative) mg/dL Urine Ketones Negative (Negative) mg/dL Urine Occult Blood 0.20 (Negative) mg/dL Urine Nitrate Negative (Negative) Urine Bilirubin Negative (Negative) mg/dL Urine Urobilinogen Negative mg/dL Ur Leukocyte Esterase Negative (Negative) /uL Urine RBC 5 H (0-3) /hpf Urine WBC 1 (0-4) /hpf Ur Squamous Epith Cells < 1 (0-4) /hpf Urine Bacteria None (0) /hpf Urine Mucus Few A (None) /hpf Ur Culture Indicated? No Urine Opiates Screen Suspect positive A Ur Oxycodone Screen Suspect positive A Urine Methadone Screen None detected Ur Methadone Confirm TNP Ur Barbiturates Screen None detected Ur Barbiturate Confirm TNP Ur Phencyclidine Scrn None detected Urine PCP Confirm TNP Ur Amphetamines Screen None detected U Amphetamines Confirm TNP U Benzodiazepines Scrn None detected Ur Benzodiazepine, Qnt TNP Urine Cocaine Screen None detected Urine Cocaine Confirm TNP U Cannabinoids Confirm TNP U Marijuana (THC) Screen None detected POC Troponin I (0.00-0.08) 09/23/22 09/23/22 09/23/22 Range/Units 01:20 02:57 04:56 WBC (4.5-11.0) K/mcL RBC (4.63-6.08) M/mcL Hgb (13.7-17.5) g/dL Hct (40.1-51.0) % POC Hct (41-55) MCV (80.0-100.0) fL MCH (26.0-34.0) pg MCHC (31.0-36.0) g/dL RDW (11.5-14.5) % Plt Count (140-440) K/mcL MPV (8.8-12.5) fL Immature Gran % (Auto) (0.0-0.5) % Neut % (Auto) (38.0-78.0) % Lymph % (Auto) (15.5-49.0) % [place] % (Auto) (1.0-12.0) % Eos % (Auto) (0.0-7.0) % Baso % (Auto) (0.0-2.0) % Lymph # (Auto) (1.50-4.80) K/mcL [place] # (Auto) (0.10-0.90) K/mcL Eos # (Auto) (0.00-0.70) K/mcL Baso # (Auto) (0.00-0.30) K/mcL Seg Neutrophils % (38-78) % Band Neutrophils % (0-10) % Lymphocytes % (15-49) % Monocytes % (Manual) (1-12) % Eosinophils % (Manual) (0-7) % Immature Gran # (0.00-0.05) K/mcl Absolute Neutrophils (1.80-8.00) K/mcL Platelet Estimate (Normal) RBC Morphology (Normal) PT (11.9-14.5) sec INR (0.9-1.1) D-Dimer (0.27-0.50) ug/mL POC VBG pH 7.34 (7.32-7.42) POC VBG pCO2 at Temp 42.7 (41-51) POC VBG pO2 30 (25-40) POC VBG HCO3 23.2 L (24-28) POC VBG Total CO2 25.0 (25-29) POC Venous O2 Sat 53.0 (40-70) POC VBG Base Excess -2.0 (-2-2) VBG Lactic Acid 1.6 (0.5-2) POC Sodium (133-145) Sodium 134 (133-145) mmol/L POC Potassium (3.3-5.1) Potassium 4.4 (3.3-5.1) mmol/L POC Chloride (96-108) Chloride 102 (96-108) mmol/L Carbon Dioxide 23 (22-30) mmol/L POC Total CO2 (22-30) Anion Gap 9.0 (8.0-16.0) POC Anion Gap (8.0-16.0) POC BUN (6-20) BUN 13 (8-23) mg/dL Creatinine 1.0 (0.7-1.2) mg/dL POC Creatinine (0.6-1.2) GFR Calculation 74 Glucose 109 H (70-105) mg/dL POC Glucose (70-105) Uric Acid 5.0 (2.5-8.0) mg/dL Calcium 8.5 L (8.6-10.4) mg/dL POC WB Ioniz Calcium (1.16-1.32) Phosphorus 3.6 (2.5-4.5) mg/dL Magnesium 2.0 (1.6-2.5) mg/dL Total Bilirubin < 0.2 (0.1-1.0) mg/dL Direct Bilirubin < 0.2 (0-0.3) mg/dL GGT 12 (8-61) U/L AST 86 H (<40) U/L ALT 29 (<40) U/L Alkaline Phosphatase 106 (39-117) U/L Ammonia (16-60) umol/L Lactate Dehydrogenase 289 H (135-225) U/L Total Creatine Kinase (24-195) U/L C-Reactive Protein (0.03-0.80) mg/dL NT-Pro-B Natriuret Pep 418.4 H (<125.0) pg/mL Total Protein 6.5 (5.9-8.4) gm/dL Albumin 3.2 (3.2-5.2) gm/dL Globulin 3.3 (2.2-3.7) gm/dL Albumin/Globulin Ratio 1.0 (1.0-2.3) Triglycerides 108 (<150) mg/dL Procalcitonin (<0.10) ng/mL TSH (0.27-5.01) uIU/mL Prolactin (4.0-15.2) ng/mL Urine Color Urine Appearance (Clear) Urine pH (5.0-9.0) Ur Specific [place] (1.000-1.035) Urine Protein (Negative) mg/dL Urine Glucose (UA) (Negative) mg/dL Urine Ketones (Negative) mg/dL Urine Occult Blood (Negative) mg/dL Urine Nitrate (Negative) Urine Bilirubin (Negative) mg/dL Urine Urobilinogen mg/dL Ur Leukocyte Esterase (Negative) /uL Urine RBC (0-3) /hpf Urine WBC (0-4) /hpf Ur Squamous Epith Cells (0-4) /hpf Urine Bacteria (0) /hpf Urine Mucus (None) /hpf Ur Culture Indicated? Urine Opiates Screen Ur Oxycodone Screen Urine Methadone Screen Ur Methadone Confirm Ur Barbiturates Screen Ur Barbiturate Confirm Ur Phencyclidine Scrn Urine PCP Confirm Ur Amphetamines Screen U Amphetamines Confirm U Benzodiazepines Scrn Ur Benzodiazepine, Qnt Urine Cocaine Screen Urine Cocaine Confirm U Cannabinoids Confirm U Marijuana (THC) Screen POC Troponin I (0.00-0.08) Discharge Plan Patient/Caregiver Discharge Instructions Pt seen by MEDICAL SALES REPRESENTATIVE/PA only: No Clinical Impression: Dehydration, Community acquired pneumonia, Acute hepatic encephalopathy, Rhabdomyolysis Patient Disposition: Still a Patient Follow up with: Kameron Forbes DO [Primary Care Provider] - Prescriptions: No Action (DME) FreeStyle Esther 14 Day [place] Misc See Rx Instructions .ROUTE .MEDSUPPLY Qty: 6 3RF Rx Instructions: As directed prochlorperazine maleate 5 mg tablet 5 mg PO BID PRN (Reason: Nausea) (DME) FreeStyle Esther 14 Day Sensor Kit See Rx Instructions .ROUTE .MEDSUPPLY Qty: 6 3RF Rx Instructions: As directed hydroxyzine HCl 25 mg tablet 25 mg PO BID MDD 2 PRN (Reason: anxiety) Qty: 60 0RF atorvastatin 40 mg tablet 40 mg PO QDAY Qty: 90 1RF Jardiance 25 mg tablet 25 mg PO QDAY Qty: 90 1RF lisinopril 10 mg tablet 10 mg PO QDAY Qty: 90 1RF aspirin [Adult Aspirin Regimen] 81 mg tablet,delayed release (DR/EC) 81 mg PO QDAY naloxone 4 mg/actuation spray,non-aerosol 4 mg INTRANASAL .COMPLEX PRN (Reason: opioid overdose) Qty: 2 0RF Rx Instructions: administer 1 dose in one nostril. Call 911. If no response after 3-5 minutes, administer second dose PRN; duloxetine 60 mg capsule,delayed release(DR/EC) 60 mg PO QHS Qty: 90 3RF lorazepam [Ativan] 1 mg tablet 1 mg PO QHS PRN (Reason: anxiety) Qty: 30 2RF pregabalin 75 mg capsule 75 mg PO QAM Qty: 90 2RF pregabalin 150 mg capsule 150 mg PO QHS Qty: 180 2RF morphine [MS Contin] 60 mg tablet extended release 60 mg PO BID MDD 2 Qty: 60 0RF Rx Instructions: *MUST LAST 30 DAYS* P/U 10/21, Start 10/22 oxycodone 10 mg tablet 10 - 20 mg PO .Q4-6H MDD 6 PRN (Reason: pain) Qty: 180 0RF Rx Instructions: *MUST LAST 30 DAYS* P/U 11/05, Start 11/06 cilostazol 50 mg tablet 50 mg PO BID Qty: 30 0RF clopidogrel [Plavix] 75 mg tablet 75 mg PO QDAY varenicline [Chantix] 1 mg tablet 1 mg PO BID escitalopram oxalate 10 mg tablet 10 mg PO QDAY Qty: 90 3RF multivitamin Tablet 1 tab PO QDAY metformin 1,000 mg tablet,ER luke.retention 24 hr 500 mg PO QDAY
[2022-09-22] MEDS: 0.9 % SODIUM CHLORIDE 1,000 ML IV SCH (23:02)
[2022-09-23 00:45] LABS: Amphetamine Screen,Urine None detected; Barbiturate Screen,Urine None detected; Benzodiazepines Screen,Urine None detected; Cannabinoid Screen,Urine None detected; Cocaine Screen,Urine None detected; Opiate Screen,Urine Suspect Positive; Oxycodone, Urine Screen Suspect Positive; Phencyclidine Screen,Urine None detected
--- NOTE | 2022-09-23 03:16 | XRay Report ---
CLINICAL INFORMATION: Weakness COMPARISON: 12/29/2021 TECHNIQUE: Portable FINDINGS: Left Port-A-Cath is stable satisfactory position. The heart is equivocally enlarged. Mediastinum and pulmonary vessels are normal. Subsegmental atelectasis developed in both lung bases. No effusions. IMPRESSION: Borderline cardiomegaly and subsegmental bibasilar atelectasis. Interpreted and Authenticated by: Kameron Escalante 09/23/22
--- NOTE | 2022-09-23 03:19 | Cat Scan Report ---
CLINICAL INFORMATION: Acute mental status change COMPARISON: None. TECHNIQUE: 2.5 mm helical slices were obtained in the skull base to vertex. Following reconstruction, axial reformatted images were reviewed at bone and parenchymal windows. The exam was performed using radiation dose optimization techniques including, but not limited to, automated exposure control, adjustment of the mA and/or kV according to patient size and use of iterative reconstruction technique. FINDINGS: The ventricles, sulci, fissures, and cisterns are symmetrically enlarged compatible with mild age-related atrophy. No extra-axial fluid collections are identified. Mild patchy chronic ischemic changes, in the deep cerebral white matter, are expected for age. There is no hemorrhage, mass effect, or edema. Bone windows show no osseous abnormality. IMPRESSION: Mild atrophy and chronic ischemic changes in the deep cerebral white matter-expected for age. No acute findings Interpreted and Authenticated by: Kameron Escalante 09/23/22
--- NOTE | 2022-09-23 04:24 | Cat Scan Report ---
CLINICAL INFORMATION: Hypoxia and elevated d-dimer. History of squamous cell carcinoma-neck region COMPARISON: Whole-body CT PET scan 07/05/2021 TECHNIQUE: 80ml of Isovue-[id number] were injected intravenously. Using SmartPrep to maximize pulmonary artery opacification, .625mm helical slices were obtained from the lung apices through the lung bases. Following reconstruction, 2.5 mm sagittal, coronal, and axial reformations were processed. The exam was reviewed at mediastinal, lung, and bone windows. The exam was performed using radiation dose optimization techniques including, but not limited to, automated exposure control, adjustment of the mA and/or kV according to patient size and use of iterative reconstruction technique. FINDINGS: Pulmonary parenchymal windows show an 11 mm nodule in the medial basilar segment of the right lower lobe on image 83. This is new from the previous exam. Moderate subsegmental atelectasis seen in both lower lobes, lingula and right middle lobe. Developing infiltrates in the lower lobes are not excluded. Underlying chronic bronchitis again noted.. Pleural spaces are unremarkable-no effusions. Mediastinal windows show the heart is mildly enlarged with extremely heavy calcific plaque in the coronary arteries-particularly the LAD. Moderate calcification seen aortic valve.. The pulmonary arteries are normal diameter and well-opacified without evidence of embolus. Thoracic aorta is also normal diameter and well-opacified. Moderately enlarged lymph nodes have developed in the right hilum and pericarinal region ranging up to 3 cm. There are also 2-3 mildly enlarged lymph nodes in the left hilum.Esophagus is grossly normal. The thyroid is unremarkable. Bone windows show no metastases. Malunified old fractures of the posterior lateral left sixth seventh eighth and ninth ribs seen as before. Images through the superior abdomen show a 8 mm solitary stone within the gallbladder. The visualized liver, adrenal glands, spleen and pancreas are normal. Bilateral renal cysts are unchanged. IMPRESSION: 1. No evidence of pulmonary embolus. 2. Chronic bronchitis with moderate subsegmental atelectasis in both lower lobes, right middle lobe and lingula. Developing lower lobe infiltrates not excluded. Suggest short-term radiographic follow-up. 3. Moderately enlarged lymph nodes in the right hilum and pericarinal region-new since the whole body PET/CT over one year prior. These likely represent metastatic adenopathy. 4. 11 mm nodule in the medial basilar segment of the right lower lobe that new since the prior CT. This could represent a metastasis 5. Mild cardiomegaly with extremely heavy calcified plaque in the coronary arteries and of the LAD. Calcination also seen aortic valve. 6. Cholelithiasis Interpreted and Authenticated by: Kameron Escalante 09/23/22
--- NOTE | 2022-09-23 05:54 | Ultrasound Report ---
CLINICAL INFORMATION: Elevated liver enzymes with elevated ammonia level COMPARISON: None. FINDINGS: The liver is normal in size and echotexture with a vertical dimension of 15 cm. Portal and hepatic veins are patent and normal demonstrate normal directional blood flow. No focal hepatic lesions. The gallbladder is mildly enlarged with multiple stones. Gallbladder wall normal thickness-2 mm. The common bile duct mildly dilated-13 mm. Pancreas is obscured by bowel gas. No free fluid IMPRESSION: Cholelithiasis. No supportive evidence for associated cholecystitis. Moderate dilatation of the common bile duct: 14 mm. This is also supported by concomitant chest CT which included this area. Choledocholithiasis is suspected with a stone in the distal common bile duct. This was not seen on CT, however it is likely cholesterol stone which is typically CT occult. Suggest MRCP Interpreted and Authenticated by: Kameron Escalante 09/23/22
[2022-09-23 05:58] LABS: ALT/SGPT 29 U/L (<40); AST/SGOT 86 U/L (<40); Albumin 3.2 gm/dL (3.2-5.2); Alkaline Phosphatase 106 U/L (39-117); Bilirubin,Direct < 0.2 mg/dL (0-0.3); Bilirubin,Total < 0.2 mg/dL (0.1-1.0); Blood Urea Nitrogen 13 mg/dL (8-23); Calcium 8.5 mg/dL (8.6-10.4); Carbon Dioxide 23 mmol/L (22-30); Chloride 102 mmol/L (96-108); Globulin 3.3 gm/dL (2.2-3.7); Glomerular Filtration Rate 74; Glucose 109 mg/dL (70-105); Lactate Dehydrogenase 289 U/L (135-225); Phosphorous 3.6 mg/dL (2.5-4.5); Triglycerides 108 mg/dL (<150)
[2022-09-23] MEDS: 0.9 % SODIUM CHLORIDE 1,000 ML IV SCH (09:18)
--- NOTE | 2022-09-23 11:04 | Internal Med History&Physical ---
HPI History of Present Illness Patient information: Note initiated : 09/23/22 at 10:46 am Service Date, if different from initiated Date: [] Patient: Jt Goodrich a 72 y/o M admitted on for "I can't walk". Chief Complaint: [] History of present illness: Mr. Goodrich is a 72 year old M Presents to ED with generalized weakness and some confusion per his . He is also not been drinking very much water lately and typically does not drink much water usually drinking coffee But has not had much of that past 24 hours either. Per the he typically only eats 1 time a day anyway because of history of neck cancer and chemoradiation which makes it difficult. Patient denies feeling like any food or drink goes down the wrong pipe. reports that she found him on the floor in front of his chair this morning. He typically sleeps in his chair and she last saw him sleeping in his chair the previous night. She helped him up to the chair and he remained there through the afternoon but in the afternoon when he tried to get up he was so weak he could not and then she says he was more confused. Does admit to some shortness of breath.. Denies fever chills chest pain. Denies abd pain diarrhea constipation. He last had chemo and radiation in October 2021 and family says that since that time he has been in generalized decline but seems to been much more rapid decline over the past couple months. Does have memory issues since the chemo. And his mobility has been decreasing as well. He had a PET scan in June that showed abnormal mediastinal and right perihilar lymphadenopathy with increased metabolic activity concerning for metastatic disease. Patient has been following with oncology whose plan was to do regular PET scans in the next was in October. CTA chest done yesterday showed a moderate enlarged lymph nodes in the right hilum and pericarinal. There was also 11 millimeter nodule in the right lower lobe which had the potential for being a metastasis. The ED had work-up that revealed His lactate was noted to be elevated at 3.6. Creatinine 1.4 on [id number] and he does have a history of chronic kidney disease stage III. Last reported creatinine we have on file is from January of fall which is 1.5 and range from 1.0-1.4 in December. His ammonia was elevated at 114. He had a negative procalcitonin. And his CPK was 4800. In the ED they did have a recorded oxygen level of 88% on room air. Patient was placed on 1 L. Of note patient is on a morphine pump for chronic pain. Chest imaging showed atelectasis but no obvious infiltrate and no PE. CT brain was done which was unremarkable for any acute pathology. Liver ultrasound showed cholelithiasis and moderately dilated common bile duct mildly enlarged gallbladder which was enlarged on previous imaging. However patient liver enzymes are completely normal bilirubin is completely normal and patient is nontender in the abdomen. Case is also does brook with surgeon. No immediate need for surgical intervention or further treatment. Patent venous flows. Laboratory improving with IV fluids. Treating for rhabdomyolysis. Patient too weak and unable to care for himself at home. Review of Systems: Pertinent positives as above. Denies headache/fever/chills/nausea/vomiting/chest or abdominal pain/cough/dyspnea/diarrhea. Remaining 10 point review of system reviewed negative PHYSICAL EXAM: General: drowsy, No acute Distress Eyes/N/T: EOMI, no scleral icterus, PERRL, dry MM Head/Neck: neck supple, full ROM, normocephalic atraumatic CV: RRR, 2/6SM, normal s1/s2 Pulm: prolonged exp phase, no wheezing/rhonchi/rales, no respiratory distress Abd: soft, nontender, +BS x4 Ext: no clubbing/cyanosis, 1+ b/l LE edema, nontender Neuro: quite drowsy but awakens to voice and follows commands, CN 2-12 grossly intact, no focal deficits, moves all extremities, , sensations intact b/l upper/lower Psychiatric: Skin: warm/dry, normal color PFSH PFSH All Active Problems (Updated 09/22/22 @ 22:35 by Dangelo Arroyo DNP) Dehydration (Acute) Community acquired pneumonia (Acute) Acute hepatic encephalopathy (Acute) Rhabdomyolysis (Acute) Other low back pain (Acute) Neoplasm related pain (acute) (chronic) (Acute) Anemia, normocytic normochromic (Acute) Diabetic foot ulcer with osteomyelitis (Acute) Major depressive disorder (Acute) Cellulitis of left foot (Acute) Passive suicidal ideations (Acute) Urinary retention (Acute) Post-operative pain (Acute) 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) Umbilical hernia (Chronic) Lymphadenopathy (Acute) Peripheral vascular disease (Acute) Left foot pain (Chronic) Toe pain, left (Chronic) Neurogenic claudication due to lumbar spinal stenosis (Chronic) Degenerative joint disease (Chronic) Type 2 diabetes mellitus without complications (Chronic) History of cancer (Chronic) Hypercholesterolemia (Chronic) Embolism and thrombosis of artery (Chronic) COPD (chronic obstructive pulmonary disease) (Chronic) Spondylosis without myelopathy or radiculopathy, lumbar region (Chronic) Spinal stenosis, lumbar region without neurogenic claudication (Chronic) Radiculopathy, cervical region (Chronic) Chronic pain (Chronic) Low back pain (Chronic) Radiculopathy, lumbar region (Chronic) Spondylosis without myelopathy or radiculopathy, cervical region (Chronic) Medicare annual wellness visit, initial (Chronic) Hemorrhoids (Chronic) Hepatitis C (Chronic) Hemochromatosis (Chronic) Atherosclerotic heart disease of [place] coronary artery without angina pectoris (Chronic) PAD (peripheral artery disease) (Chronic) Carpal tunnel syndrome, right (Chronic) Metabolic syndrome (Chronic) Skin cancer (Chronic) Arthritis (Chronic) Acute hemorrhoid (Chronic) PNA (pneumonia) (Chronic) History of bronchitis (Chronic) Measles (Chronic) Hypertension (Chronic) 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) Chronic hepatitis C without hepatic coma (Chronic) Other cervical disc degeneration, cervicothoracic region (Chronic) 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) History of hepatitis C (Chronic) Atherosclerosis of aorta (Chronic) Chronic kidney disease, stage 2 (mild) (Chronic) Type 2 diabetes mellitus with hyperglycemia (Chronic) region manager current use of insulin (Chronic) Nicotine dependence, cigarettes, uncomplicated (Chronic) Other nonrheumatic aortic valve disorders (Chronic) Essential hypertension (Chronic) Intermittent claudication of left lower extremity due to atherosclerosis (Chronic) Opioid dependence, uncomplicated (Chronic) Chronic pain due to trauma (Chronic) Hyperlipidemia, unspecified (Chronic) Other chronic postprocedural pain (Chronic) Other intervertebral disc degeneration, lumbar region (Chronic) region manager current use of opiate analgesic (Chronic) Kidney cysts (Chronic) Laceration (Chronic) Encounter for removal of sutures (Chronic) Medical History (Updated 09/22/22 @ 22:35 by Dangelo Arroyo DNP) Acute hemorrhoid Arthritis Atherosclerosis of aorta Atherosclerotic heart disease of [place] coronary artery without angina pectoris Carpal tunnel syndrome, right Chronic hepatitis C without hepatic coma Chronic kidney disease, stage 2 (mild) Chronic pain Chronic pain due to malignant neoplastic disease With intrathecal pump in place Chronic pain due to trauma COPD (chronic obstructive pulmonary disease) Degenerative joint disease Embolism and thrombosis of artery Blood clot in neck after fusion 2009/removed in surgery Encounter for removal of sutures Essential hypertension Hemochromatosis Hemochromatosis associated with mutation in HFE gene Hemorrhoids Hepatitis C History of bronchitis History of cancer History of hepatitis C Hypercholesterolemia Hyperlipidemia, unspecified Hypertension Intermittent claudication of left lower extremity due to atherosclerosis Kidney cysts Laceration Left foot pain region manager current use of insulin region manager current use of opiate analgesic Low back pain Measles Medicare annual wellness visit, initial Metabolic syndrome Neoplasm related pain (acute) (chronic) Neurogenic claudication due to lumbar spinal stenosis Nicotine dependence, cigarettes, uncomplicated Opioid dependence, uncomplicated Other cervical disc degeneration, cervicothoracic region Other chronic postprocedural pain Other intervertebral disc degeneration, lumbar region Other low back pain Other nonrheumatic aortic valve disorders PAD (peripheral artery disease) PNA (pneumonia) Porphyria cutanea tarda Radiculopathy, cervical region Radiculopathy, lumbar region Secondary osteoarthritis of left foot Skin cancer Spinal stenosis, lumbar region without neurogenic claudication Spondylosis without myelopathy or radiculopathy, cervical region Spondylosis without myelopathy or radiculopathy, lumbar region 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 Type 2 diabetes mellitus with hyperglycemia Type 2 diabetes mellitus without complications Surgical History (Updated 08/31/22 @ 12:49 by Nabila Dillon) History of carpal tunnel surgery History of colonoscopy (08/31/22) History of elbow surgery L History of eye surgery (~2016) Right 2017 History of foot surgery (~09/2011) L History of hand surgery Both hands History of neck surgery (~2007) 2007 History of oral surgery Root canal History of orthopedic surgery 1992 - Multiple sites- Elbow Left, Bilateral hand, Right Shoulder; Left foot 09/2011 History of root canal procedure History of shoulder surgery R History of surgery ankle History of surgery LESI #2 L3-4 w/sed 11/03/201910/26 MAYDA #2 w/cath, w/sed 11/03/201907/27 L3-4 TAY #1 w/ sed 07/22/1907/27 MAYDA #1 w/cath, w/sed 07/22/1904/28 LESI #3 L4-5 w/sed 05/08/1904/28 MAYDA #3 w/cath, wsed 05/08/1903/27 MAYDA #2 w/cath, w/sed 03/12/1903/27 LESI #2 L4-5 w/sed 03/12/1901/25 LESI #1 L4-5 w/sed 01/14/201901/25 MAYDA #1 w/cath, w/sed 01/14/201908/25 LESI #3 L4-5 w/sed 08/14/201808/25 MAYDA #3 w/cath w/sed 08/14/201805/28 MAYDA #2 w/cath w/sed 05/21/201805/28 LESI #2 L4-5 w/sed 05/21/201803/26 LESI #1 L4-5 w/sed 03/14/1803/26 MAYDA #1 w/cath, w/sed 03/14/1812/25 LESI #3 L4-5 w/sed 01/02/1812/25 MAYDA #3 w/cath, w/sed 01/02/1809/24 LESI #2 L4-5 w/sed 09/18/1709/24 MAYDA #2 w/cath, w/sed 09/18/1707/25 LESI #1 L4-5 w/sed 08/01/1707/25 MAYDA #1 w/cath, w/sed 07/17/201706/24 MBB C3-7 bilat w/sed 06/28/201701/23 LESI #1 L4-5 w/sed 01/22/201711/23 MAYDA #2 w/cath w/sed 11/21/201610/23 MAYDA #1 w/sed, w/cath 11/02/201610/20 MAYDA #2 w/sed 10/23/201307/21 LESI #1 L4-5 w/sed 07/16/201307/21 MAYDA #1 w/sed 07/16/201301/17 Facets Left L2-3,L3-4, L4-5, L5-S1 w/sed (6-11) Status post trigger finger release (~03/2014) 03/2014 Family History Mother Dementia Father Cancer Grandmother Diabetes Maternal Brother Lung cancer Other Breast cancer Colon cancer Social History marital status: occupational status: retired smoking status: Current every day smoker alcohol intake frequency: does not drink substance use type: does not use MEDS/ALLERGIES Home Medications and Allergies Home Medications Medication Instructions Recorded Confirmed Type aspirin 81 mg tablet,delayed 81 mg PO QDAY 09/26/17 09/22/22 History release (Adult Aspirin Regimen) atorvastatin 40 mg tablet 40 mg PO QDAY #90 tabs 09/05/19 09/22/22 Rx empagliflozin 25 mg tablet 25 mg PO QDAY #90 tabs 09/05/19 09/22/22 Rx (Jardiance) lisinopril 10 mg tablet 10 mg PO QDAY #90 tabs 09/05/19 09/22/22 Rx clopidogrel 75 mg tablet (Plavix) 75 mg PO QDAY 07/12/20 09/22/22 History cilostazol 50 mg tablet 50 mg PO BID #30 tabs 07/29/20 09/22/22 Rx flash glucose scanning reader #6 ea 08/18/20 09/22/22 Rx (FreeStyle Esther 14 Day [place]) naloxone 4 mg/actuation nasal spray 4 mg intranasal .COMPLEX PRN 07/14/21 09/22/22 Rx opioid overdose #2 ea prochlorperazine maleate 5 mg 5 mg PO BID PRN Nausea 08/08/21 09/22/22 History tablet flash glucose sensor (FreeStyle #6 ea 08/17/21 09/22/22 Rx Esther 14 Day Sensor kit) metformin 1,000 mg 24 hr 500 mg PO QDAY 11/10/21 09/22/22 History tablet,extended release multivitamin 1 tab PO QDAY 11/10/21 09/22/22 History escitalopram oxalate 10 mg tablet 10 mg PO QDAY #90 tabs 12/27/21 09/22/22 Rx varenicline 1 mg tablet (Chantix) 1 mg PO BID 02/07/22 09/22/22 History hydroxyzine HCl 25 mg tablet 25 mg PO BID PRN anxiety #60 tabs 07/03/22 09/22/22 Rx duloxetine 60 mg capsule,delayed 60 mg PO QHS #90 caps 07/26/22 09/22/22 Rx release lorazepam 1 mg tablet (Ativan) 1 mg PO QHS PRN anxiety #30 tabs 07/26/22 09/22/22 Rx morphine 60 mg tablet,extended 60 mg PO BID #60 tabs 07/26/22 09/22/22 Rx release (MS Contin) oxycodone 10 mg tablet 10 - 20 mg PO .Q4-6H PRN pain #180 07/26/22 09/22/22 Rx tabs pregabalin 150 mg capsule 150 mg PO QHS #180 caps 07/26/22 09/22/22 Rx pregabalin 75 mg capsule 75 mg PO QAM #90 caps 07/26/22 09/22/22 Rx Allergies Allergy/AdvReac Type Severity Reaction Status Date / Time latex Allergy Severe Hives Verified 07/26/22 11:04 Bee Pollen Allergy Unknown Swelling Verified 07/26/22 11:04 chlora prep Allergy Severe Hives Uncoded 07/26/22 11:04 EXAM Constitutional Vitals: Pulse Resp BP Pulse Ox O2 Del Method O2 Flow Rate 86 12 128/56 98 Nasal Cannula 1 09/23/22 10:41 09/23/22 10:41 09/23/22 10:41 09/23/22 10:41 09/23/22 02:40 09/23/22 02:40 DATA Data Completed and Pending Labs: Labs from last 24 hours 09/23/22 09/23/22 09/23/22 09:07 04:56 04:56 WBC RBC Hgb Hct POC Hct MCV MCH MCHC RDW Plt Count MPV Immature Gran % (Auto) Neut % (Auto) Lymph % (Auto) Stone % (Auto) Eos % (Auto) Baso % (Auto) Lymph # (Auto) Stone # (Auto) Eos # (Auto) Baso # (Auto) Seg Neutrophils % Band Neutrophils % Lymphocytes % Monocytes % (Manual) Eosinophils % (Manual) Immature Gran # Absolute Neutrophils Platelet Estimate RBC Morphology PT INR D-Dimer POC VBG pH POC VBG pCO2 at Temp POC VBG pO2 POC VBG HCO3 POC VBG Total CO2 POC Venous O2 Sat POC VBG Base Excess VBG Lactic Acid POC Sodium Sodium 134 POC Potassium Potassium 4.4 POC Chloride Chloride 102 Carbon Dioxide 23 POC Total CO2 Anion Gap 9.0 POC Anion Gap POC BUN BUN 13 Creatinine 1.0 POC Creatinine GFR Calculation 74 Glucose 109 H POC Glucose Uric Acid 5.0 Calcium 8.5 L POC WB Ioniz Calcium Phosphorus 3.6 Magnesium 2.0 Total Bilirubin < 0.2 Direct Bilirubin < 0.2 GGT 12 AST 86 H ALT 29 Alkaline Phosphatase 106 Ammonia 17 Lactate Dehydrogenase 289 H Total Creatine Kinase 3227 H C-Reactive Protein NT-Pro-B Natriuret Pep Total Protein 6.5 Albumin 3.2 Globulin 3.3 Albumin/Globulin Ratio 1.0 Triglycerides 108 Procalcitonin TSH Prolactin Urine Color Urine Appearance Urine pH Ur Specific [place] Urine Protein Urine Glucose (UA) Urine Ketones Urine Occult Blood Urine Nitrate Urine Bilirubin Urine Urobilinogen Ur Leukocyte Esterase Urine RBC Urine WBC Ur Squamous Epith Cells Urine Bacteria Urine Mucus Ur Culture Indicated? Urine Opiates Screen Ur Opiates Confirm Ur Oxycodone Screen U Oxycod/Oxymor Confirm Urine Methadone Screen Ur Methadone Confirm Ur Barbiturates Screen Ur Barbiturate Confirm Ur Phencyclidine Scrn Urine PCP Confirm Ur Amphetamines Screen U Amphetamines Confirm U Benzodiazepines Scrn Ur Benzodiazepine, Qnt Urine Cocaine Screen Urine Cocaine Confirm U Cannabinoids Confirm U Marijuana (THC) Screen POC Troponin I 09/23/22 09/23/22 09/22/22 02:57 01:20 22:19 WBC RBC Hgb Hct POC Hct MCV MCH MCHC RDW Plt Count MPV Immature Gran % (Auto) Neut % (Auto) Lymph % (Auto) Stone % (Auto) Eos % (Auto) Baso % (Auto) Lymph # (Auto) Stone # (Auto) Eos # (Auto) Baso # (Auto) Seg Neutrophils % Band Neutrophils % Lymphocytes % Monocytes % (Manual) Eosinophils % (Manual) Immature Gran # Absolute Neutrophils Platelet Estimate RBC Morphology PT INR D-Dimer POC VBG pH 7.34 POC VBG pCO2 at Temp 42.7 POC VBG pO2 30 POC VBG HCO3 23.2 L POC VBG Total CO2 25.0 POC Venous O2 Sat 53.0 POC VBG Base Excess -2.0 VBG Lactic Acid 1.6 POC Sodium Sodium POC Potassium Potassium POC Chloride Chloride Carbon Dioxide POC Total CO2 Anion Gap POC Anion Gap POC BUN BUN Creatinine POC Creatinine GFR Calculation Glucose POC Glucose Uric Acid Calcium POC WB Ioniz Calcium Phosphorus Magnesium Total Bilirubin Direct Bilirubin GGT AST ALT Alkaline Phosphatase Ammonia Lactate Dehydrogenase Total Creatine Kinase C-Reactive Protein NT-Pro-B Natriuret Pep 418.4 H Total Protein Albumin Globulin Albumin/Globulin Ratio Triglycerides Procalcitonin TSH Prolactin Urine Color Yellow Urine Appearance Clear Urine pH 5.0 Ur Specific [place] 1.015 Urine Protein Negative Urine Glucose (UA) 150 A Urine Ketones Negative Urine Occult Blood 0.20 Urine Nitrate Negative Urine Bilirubin Negative Urine Urobilinogen Negative Ur Leukocyte Esterase Negative Urine RBC 5 H Urine WBC 1 Ur Squamous Epith Cells < 1 Urine Bacteria None Urine Mucus Few A Ur Culture Indicated? No Urine Opiates Screen Ur Opiates Confirm Ur Oxycodone Screen U Oxycod/Oxymor Confirm Urine Methadone Screen Ur Methadone Confirm Ur Barbiturates Screen Ur Barbiturate Confirm Ur Phencyclidine Scrn Urine PCP Confirm Ur Amphetamines Screen U Amphetamines Confirm U Benzodiazepines Scrn Ur Benzodiazepine, Qnt Urine Cocaine Screen Urine Cocaine Confirm U Cannabinoids Confirm U Marijuana (THC) Screen POC Troponin I 09/22/22 09/22/22 09/22/22 22:19 21:09 21:09 WBC RBC Hgb Hct POC Hct MCV MCH MCHC RDW Plt Count MPV Immature Gran % (Auto) Neut % (Auto) Lymph % (Auto) Stone % (Auto) Eos % (Auto) Baso % (Auto) Lymph # (Auto) Stone # (Auto) Eos # (Auto) Baso # (Auto) Seg Neutrophils % Band Neutrophils % Lymphocytes % Monocytes % (Manual) Eosinophils % (Manual) Immature Gran # Absolute Neutrophils Platelet Estimate RBC Morphology PT INR D-Dimer 1.81 H POC VBG pH POC VBG pCO2 at Temp POC VBG pO2 POC VBG HCO3 POC VBG Total CO2 POC Venous O2 Sat POC VBG Base Excess VBG Lactic Acid POC Sodium Sodium POC Potassium Potassium POC Chloride Chloride Carbon Dioxide POC Total CO2 Anion Gap POC Anion Gap POC BUN BUN Creatinine POC Creatinine GFR Calculation Glucose POC Glucose Uric Acid Calcium POC WB Ioniz Calcium Phosphorus Magnesium Total Bilirubin Direct Bilirubin GGT 13 AST ALT Alkaline Phosphatase Ammonia Lactate Dehydrogenase Total Creatine Kinase 4811 H C-Reactive Protein 4.60 H NT-Pro-B Natriuret Pep Total Protein Albumin Globulin Albumin/Globulin Ratio Triglycerides Procalcitonin TSH Prolactin Urine Color Urine Appearance Urine pH Ur Specific [place] Urine Protein Urine Glucose (UA) Urine Ketones Urine Occult Blood Urine Nitrate Urine Bilirubin Urine Urobilinogen Ur Leukocyte Esterase Urine RBC Urine WBC Ur Squamous Epith Cells Urine Bacteria Urine Mucus Ur Culture Indicated? Urine Opiates Screen Suspect positive A Ur Opiates Confirm Pending Ur Oxycodone Screen Suspect positive A U Oxycod/Oxymor Confirm Pending Urine Methadone Screen None detected Ur Methadone Confirm TNP Ur Barbiturates Screen None detected Ur Barbiturate Confirm TNP Ur Phencyclidine Scrn None detected Urine PCP Confirm TNP Ur Amphetamines Screen None detected U Amphetamines Confirm TNP U Benzodiazepines Scrn None detected Ur Benzodiazepine, Qnt TNP Urine Cocaine Screen None detected Urine Cocaine Confirm TNP U Cannabinoids Confirm TNP U Marijuana (THC) Screen None detected POC Troponin I 09/22/22 09/22/22 09/22/22 18:53 18:38 18:36 WBC RBC Hgb Hct POC Hct MCV MCH MCHC RDW Plt Count MPV Immature Gran % (Auto) Neut % (Auto) Lymph % (Auto) Stone % (Auto) Eos % (Auto) Baso % (Auto) Lymph # (Auto) Stone # (Auto) Eos # (Auto) Baso # (Auto) Seg Neutrophils % Band Neutrophils % Lymphocytes % Monocytes % (Manual) Eosinophils % (Manual) Immature Gran # Absolute Neutrophils Platelet Estimate RBC Morphology PT INR D-Dimer POC VBG pH 7.33 POC VBG pCO2 at Temp 43.2 POC VBG pO2 45 H POC VBG HCO3 22.9 L POC VBG Total CO2 24.0 L POC Venous O2 Sat 78.0 H POC VBG Base Excess -3.0 L VBG Lactic Acid 3.6 H POC Sodium Sodium POC Potassium Potassium POC Chloride Chloride Carbon Dioxide POC Total CO2 Anion Gap POC Anion Gap POC BUN BUN Creatinine POC Creatinine GFR Calculation Glucose POC Glucose Uric Acid Calcium POC WB Ioniz Calcium Phosphorus Magnesium Total Bilirubin Direct Bilirubin GGT AST ALT Alkaline Phosphatase Ammonia 114 H Lactate Dehydrogenase Total Creatine Kinase C-Reactive Protein NT-Pro-B Natriuret Pep Total Protein Albumin Globulin Albumin/Globulin Ratio Triglycerides Procalcitonin TSH Prolactin Urine Color Urine Appearance Urine pH Ur Specific [place] Urine Protein Urine Glucose (UA) Urine Ketones Urine Occult Blood Urine Nitrate Urine Bilirubin Urine Urobilinogen Ur Leukocyte Esterase Urine RBC Urine WBC Ur Squamous Epith Cells Urine Bacteria Urine Mucus Ur Culture Indicated? Urine Opiates Screen Ur Opiates Confirm Ur Oxycodone Screen U Oxycod/Oxymor Confirm Urine Methadone Screen Ur Methadone Confirm Ur Barbiturates Screen Ur Barbiturate Confirm Ur Phencyclidine Scrn Urine PCP Confirm Ur Amphetamines Screen U Amphetamines Confirm U Benzodiazepines Scrn Ur Benzodiazepine, Qnt Urine Cocaine Screen Urine Cocaine Confirm U Cannabinoids Confirm U Marijuana (THC) Screen POC Troponin I 0.03 09/22/22 09/22/22 09/22/22 18:36 18:34 18:34 WBC RBC Hgb Hct POC Hct MCV MCH MCHC RDW Plt Count MPV Immature Gran % (Auto) Neut % (Auto) Lymph % (Auto) Stone % (Auto) Eos % (Auto) Baso % (Auto) Lymph # (Auto) Stone # (Auto) Eos # (Auto) Baso # (Auto) Seg Neutrophils % 74 Band Neutrophils % 9 Lymphocytes % 6 L Monocytes % (Manual) 10 Eosinophils % (Manual) 1 Immature Gran # Absolute Neutrophils Platelet Estimate Normal RBC Morphology Normal PT INR D-Dimer POC VBG pH POC VBG pCO2 at Temp POC VBG pO2 POC VBG HCO3 POC VBG Total CO2 POC Venous O2 Sat POC VBG Base Excess VBG Lactic Acid POC Sodium Sodium POC Potassium Potassium POC Chloride Chloride Carbon Dioxide POC Total CO2 Anion Gap POC Anion Gap POC BUN BUN Creatinine POC Creatinine GFR Calculation Glucose POC Glucose Uric Acid Calcium POC WB Ioniz Calcium Phosphorus Magnesium Total Bilirubin Direct Bilirubin GGT AST ALT Alkaline Phosphatase Ammonia Lactate Dehydrogenase 383 H Total Creatine Kinase C-Reactive Protein NT-Pro-B Natriuret Pep Total Protein Albumin Globulin Albumin/Globulin Ratio Triglycerides Procalcitonin 0.13 H TSH Prolactin Urine Color Urine Appearance Urine pH Ur Specific [place] Urine Protein Urine Glucose (UA) Urine Ketones Urine Occult Blood Urine Nitrate Urine Bilirubin Urine Urobilinogen Ur Leukocyte Esterase Urine RBC Urine WBC Ur Squamous Epith Cells Urine Bacteria Urine Mucus Ur Culture Indicated? Urine Opiates Screen Ur Opiates Confirm Ur Oxycodone Screen U Oxycod/Oxymor Confirm Urine Methadone Screen Ur Methadone Confirm Ur Barbiturates Screen Ur Barbiturate Confirm Ur Phencyclidine Scrn Urine PCP Confirm Ur Amphetamines Screen U Amphetamines Confirm U Benzodiazepines Scrn Ur Benzodiazepine, Qnt Urine Cocaine Screen Urine Cocaine Confirm U Cannabinoids Confirm U Marijuana (THC) Screen POC Troponin I 09/22/22 09/22/22 09/22/22 18:34 18:34 18:34 WBC RBC Hgb Hct POC Hct MCV MCH MCHC RDW Plt Count MPV Immature Gran % (Auto) Neut % (Auto) Lymph % (Auto) Stone % (Auto) Eos % (Auto) Baso % (Auto) Lymph # (Auto) Stone # (Auto) Eos # (Auto) Baso # (Auto) Seg Neutrophils % Band Neutrophils % Lymphocytes % Monocytes % (Manual) Eosinophils % (Manual) Immature Gran # Absolute Neutrophils Platelet Estimate RBC Morphology PT 12.9 INR 0.9 D-Dimer POC VBG pH POC VBG pCO2 at Temp POC VBG pO2 POC VBG HCO3 POC VBG Total CO2 POC Venous O2 Sat POC VBG Base Excess VBG Lactic Acid POC Sodium Sodium POC Potassium Potassium POC Chloride Chloride Carbon Dioxide POC Total CO2 Anion Gap POC Anion Gap POC BUN BUN Creatinine POC Creatinine GFR Calculation Glucose POC Glucose Uric Acid Calcium POC WB Ioniz Calcium Phosphorus Magnesium 1.9 Total Bilirubin 0.2 Direct Bilirubin < 0.2 GGT AST 105 H ALT 32 Alkaline Phosphatase 123 H Ammonia Lactate Dehydrogenase Total Creatine Kinase C-Reactive Protein NT-Pro-B Natriuret Pep Total Protein 7.3 Albumin 3.9 Globulin 3.4 Albumin/Globulin Ratio Triglycerides Procalcitonin TSH 5.46 H Prolactin 25.4 H Urine Color Urine Appearance Urine pH Ur Specific [place] Urine Protein Urine Glucose (UA) Urine Ketones Urine Occult Blood Urine Nitrate Urine Bilirubin Urine Urobilinogen Ur Leukocyte Esterase Urine RBC Urine WBC Ur Squamous Epith Cells Urine Bacteria Urine Mucus Ur Culture Indicated? Urine Opiates Screen Ur Opiates Confirm Ur Oxycodone Screen U Oxycod/Oxymor Confirm Urine Methadone Screen Ur Methadone Confirm Ur Barbiturates Screen Ur Barbiturate Confirm Ur Phencyclidine Scrn Urine PCP Confirm Ur Amphetamines Screen U Amphetamines Confirm U Benzodiazepines Scrn Ur Benzodiazepine, Qnt Urine Cocaine Screen Urine Cocaine Confirm U Cannabinoids Confirm U Marijuana (THC) Screen POC Troponin I 09/22/22 09/22/22 18:34 18:32 WBC 9.6 RBC 3.51 L Hgb 9.1 L Hct 29.3 L POC Hct 30.0 L MCV 83.5 MCH 25.9 L MCHC 31.1 RDW 17.0 H Plt Count 344 MPV 9.6 Immature Gran % (Auto) 0.8 H Neut % (Auto) 79.7 H Lymph % (Auto) 8.3 L Stone % (Auto) 10.2 Eos % (Auto) 0.7 Baso % (Auto) 0.3 Lymph # (Auto) 0.80 L Stone # (Auto) 0.98 H Eos # (Auto) 0.07 Baso # (Auto) 0.03 Seg Neutrophils % Band Neutrophils % Lymphocytes % Monocytes % (Manual) Eosinophils % (Manual) Immature Gran # 0.08 H Absolute Neutrophils 7.68 Platelet Estimate RBC Morphology PT INR D-Dimer POC VBG pH POC VBG pCO2 at Temp POC VBG pO2 POC VBG HCO3 POC VBG Total CO2 POC Venous O2 Sat POC VBG Base Excess VBG Lactic Acid POC Sodium 134 Sodium POC Potassium 4.8 Potassium POC Chloride 102 Chloride Carbon Dioxide POC Total CO2 23.0 Anion Gap POC Anion Gap 15.0 POC BUN 18 BUN Creatinine POC Creatinine 1.4 H GFR Calculation Glucose POC Glucose 193 H Uric Acid Calcium POC WB Ioniz Calcium 1.14 L Phosphorus Magnesium Total Bilirubin Direct Bilirubin GGT AST ALT Alkaline Phosphatase Ammonia Lactate Dehydrogenase Total Creatine Kinase C-Reactive Protein NT-Pro-B Natriuret Pep Total Protein Albumin Globulin Albumin/Globulin Ratio Triglycerides Procalcitonin TSH Prolactin Urine Color Urine Appearance Urine pH Ur Specific [place] Urine Protein Urine Glucose (UA) Urine Ketones Urine Occult Blood Urine Nitrate Urine Bilirubin Urine Urobilinogen Ur Leukocyte Esterase Urine RBC Urine WBC Ur Squamous Epith Cells Urine Bacteria Urine Mucus Ur Culture Indicated? Urine Opiates Screen Ur Opiates Confirm Ur Oxycodone Screen U Oxycod/Oxymor Confirm Urine Methadone Screen Ur Methadone Confirm Ur Barbiturates Screen Ur Barbiturate Confirm Ur Phencyclidine Scrn Urine PCP Confirm Ur Amphetamines Screen U Amphetamines Confirm U Benzodiazepines Scrn Ur Benzodiazepine, Qnt Urine Cocaine Screen Urine Cocaine Confirm U Cannabinoids Confirm U Marijuana (THC) Screen POC Troponin I A/P Narrative A/P Narrative: A: *Rhabdomyolysis: 2/2 downtime on the floor *Generalized weakness/deconditioning: Has been in decline since chemoradiation last October *Encephalopathy: 2/2 hypoxia from atelectasis and emphysema + likely medications + ?liver with elevated ammonia *acute hypoxic respiratory failure: 2/2 atelectasis and underlying emphysema *Atelectasis: *Hyperammonemia: ?etiology -no current etoh use, plts/bili/alb ok, no h/o liver dz -UA negative, no portal vein thrombosis, ?degree of starvation -resolved s/p lactulose in ED x1 *Hyperlactatemia: ?hypoxia vs hepatic metabolism impairment -resolved with IVF in ED *Volume depletion: *MARYANN on CKD II: 2/2 volume depletion *Anemia, chronic: *Primary Hypothyroidism (New dx): *PVD: On asa/plavix/?cilostazol, statin *DM w/neuropathy: on metformin *HTN/HLD: on acei *Depression/anxiety: cont home meds *Chr pain: On morphine pump and follows with pain clinic *Tobacco abuse: *Goals of care: Generalized continued decline since cancer diagnosis and treatment last October P: -IVF, f/u CPK -IS/acapella -supp O2 and wean as able, prn nebs, RT to assess for home O2 upon d/c -Monitor renal function/UOP/fluid balance -Monitor electrolytes and replace as needed -lactulose and f/u ammonia -f/u lactate -elevated tsh, check t4 >> t4 low. Start levothyroxine at 50mcg daily and f/u labs in 4-6 weeks -SSI -cont asa/plavix -Continue statin -hold ACEI for MARYANN and f/u renal fxn -Home medication reconciliation -PT/OT -Smoking cessation counseling > 3 minutes -CM for placement needs emanuel to SNF -ppx: lovenox Time Spent With Patient Time: Total time spent is greater than 50% in coordination of care (as documented) at patient's floor/unit and/or counseling patient: Initial: Total time with patient: Greater than 90 minutes
[2022-09-23] MEDS ORDERED: DEXTROSE 31 GM ORAL.SUSP PO PRN (11:53)
[2022-09-23] MEDS ORDERED: ONDANSETRON 4 MG/2 ML VIAL IV PRN (11:53)
[2022-09-23] MEDS ORDERED: POTASSIUM CHLORIDE 20 MEQ TABLET PO PRN ×2 (11:53)
[2022-09-23] MEDS ORDERED: POLYETHYLENE GLYCOL 3350 17 GM PACKET PO PRN (11:53)
[2022-09-23] MEDS ORDERED: 0.9 % SODIUM CHLORIDE 1,000 ML IV SCH (11:53)
[2022-09-23] MEDS ORDERED: ACETAMINOPHEN 325 MG TABLET PO PRN (11:53)
[2022-09-23] MEDS ORDERED: SENNOSIDES 1 TABLET PO PRN (11:53)
[2022-09-23] MEDS ORDERED: MAGNESIUM SULFATE 2 GM/50 ML BAG IV PRN (11:53)
[2022-09-23] MEDS ORDERED: DEXTROSE 50% 50 ML VIAL IV PRN (11:53)
[2022-09-23] MEDS ORDERED: POTASSIUM CHLORIDE 40 MEQ in DEXTROSE 5% IN WATER 500 ML IV PRN (11:53)
[2022-09-23] MEDS ORDERED: IPRATROPIUM/ALBUTEROL 3 ML AMPUL.NEB NEB PRN (11:53)
[2022-09-23] MEDS: ENOXAPARIN 40 MG/0.4 ML SYRINGE SQ SCH (12:19)
[2022-09-23] MEDS: INSULIN LISPRO 1 UNIT/0.01 ML UNIT SQ SCH ×3 (12:22→21:19)
[2022-09-23] MEDS: LEVOTHYROXINE 50 MCG TABLET PO SCH (13:53)
[2022-09-23] MEDS: 0.9 % SODIUM CHLORIDE 10 ML SYRINGE IV SCH ×2 (14:05→21:20)
[2022-09-23] MEDS: DOCUSATE SODIUM 100 MG CAPSULE PO SCH (21:19)
[2022-09-24] MEDS: 0.9 % SODIUM CHLORIDE 10 ML SYRINGE IV SCH ×3 (04:00→21:12)
[2022-09-24 06:34] LABS: Basophils # (Auto) 0.02 K/mcL (0.00-0.30); Basophils % (Auto) 0.4 % (0.0-2.0); Eosinophils # (Auto) 0.15 K/mcL (0.00-0.70); Hematocrit 24.4 % (40.1-51.0); Hemoglobin 7.6 g/dL (13.7-17.5); Lymphocytes # (Auto) 0.64 K/mcL (1.50-4.80); Lymphocytes % (Auto) 12.9 % (15.5-49.0); Mean Cell Volume 82.7 fL (80.0-100.0); Mean Corpuscular HGB Conc 31.1 g/dL (31.0-36.0); Mean Platelet Volume 9.8 fL (8.8-12.5); Monocytes # (Auto) 0.58 K/mcL (0.10-0.90); Monocytes % (Auto) 11.6 % (1.0-12.0); Neutrophils % (Auto) 71.5 % (38.0-78.0); Platelet Count 263 K/mcL (140-440); RBC 2.95 M/mcL (4.63-6.08); Red Cell Distribution Width 16.9 % (11.5-14.5)
[2022-09-24] MEDS: LEVOTHYROXINE 50 MCG TABLET PO SCH (06:59)
[2022-09-24 07:00] LABS: ALT/SGPT 25 U/L (<40); AST/SGOT 54 U/L (<40); Albumin/Globulin Ratio 1.1 (1.0-2.3); Alkaline Phosphatase 85 U/L (39-117); Bilirubin,Direct < 0.2 mg/dL (0-0.3); Bilirubin,Total < 0.2 mg/dL (0.1-1.0); Blood Urea Nitrogen 9 mg/dL (8-23); Calcium 8.6 mg/dL (8.6-10.4); Carbon Dioxide 23 mmol/L (22-30); Chloride 105 mmol/L (96-108); Globulin 2.7 gm/dL (2.2-3.7); Glomerular Filtration Rate 88; Glucose 115 mg/dL (70-105); Lactate Dehydrogenase 270 U/L (135-225); Phosphorous 2.8 mg/dL (2.5-4.5); Triglycerides 103 mg/dL (<150); Uric Acid 4.6 mg/dL (2.5-8.0)
[2022-09-24] MEDS ORDERED: hydrOXYzine 25 MG TABLET PO PRN (07:20)
--- NOTE | 2022-09-24 07:21 | Internal Med Progress Note ---
SUBJECTIVE Subjective Patient information: Note initiated : 09/24/22 at 7:16 am Service Date, if different from initiated Date: [] Patient: Jt Goodrich a 72 y/o M admitted on 09/23/22 for "I can't walk", Rhabdomyelosis. Chief Complaint: [] Interval history: History of present illness: Mr. Goodrich is a 72 year old M Presents to ED with generalized weakness and some confusion per his . He is also not been drinking very much water lately and typically does not drink much water usually drinking coffee But has not had much of that past 24 hours either. Per the he typically only eats 1 time a day anyway because of history of neck cancer and chemoradiation which makes it difficult. Patient denies feeling like any food or drink goes down the wrong pipe. reports that she found him on the floor in front of his chair this morning. He typically sleeps in his chair and she last saw him sleeping in his chair the previous night. She helped him up to the chair and he remained there through the afternoon but in the afternoon when he tried to get up he was so weak he could not and then she says he was more confused. Does admit to some shortness of breath.. Denies fever chills chest pain. Denies abd pain diarrhea constipation. He last had chemo and radiation in October 2021 and family says that since that time he has been in generalized decline but seems to been much more rapid decline over the past couple months. Does have memory issues since the chemo. And his mobility has been decreasing as well. He had a PET scan in June that showed abnormal mediastinal and right perihilar lymphadenopathy with increased metabolic activity concerning for metastatic disease. Patient has been following with oncology whose plan was to do regular PET scans in the next was in October. CTA chest done yesterday showed a moderate enlarged lymph nodes in the right hilum and pericarinal. There was also 11 millimeter nodule in the right lower lobe which had the potential for being a metastasis. The ED had work-up that revealed His lactate was noted to be elevated at 3.6. Creatinine 1.4 on [id number] and he does have a history of chronic kidney disease stage III. Last reported creatinine we have on file is from January of fall which is 1.5 and range from 1.0-1.4 in December. His ammonia was elevated at 114. He had a negative procalcitonin. And his CPK was 4800. In the ED they did have a recorded oxygen level of 88% on room air. Patient was placed on 1 L. Of note patient is on a morphine pump for chronic pain. Chest imaging showed atelectasis but no obvious infiltrate and no PE. CT brain was done which was unremarkable for any acute pathology. Liver ultrasound showed cholelithiasis and moderately dilated common bile duct mildly enlarged gallbladder which was enlarged on previous imaging. However patient liver enzymes are completely normal bilirubin is completely normal and patient is nontender in the abdomen. Case is also does brook with surgeon. No immediate need for surgical intervention or further treatment. Patent venous flows. Laboratory improving with IV fluids. Treating for rhabdomyolysis. Patient too weak and unable to care for himself at home. 09/24 Patient feeling better today. Hemoglobin lower today, no gross bleeding, suspect delusional, monitor. Levothyroxine started. Follow-up labs. States poor sleep, Home med rec not reconciled in restarting home pain medications. Review of Systems: Pertinent positives as above. Denies headache/fever/chills/nausea /vomiting/chest or abdominal pain/cough/dyspnea/diarrhea. PHYSICAL EXAM: General: awake, No acute Distress Eyes/N/T: EOMI, no scleral icterus, Head/Neck: neck supple, full ROM, CV: RRR, 2/6SM, Pulm: prolonged exp phase, no wheezing/rhonchi/rales, no respiratory distress Abd: soft, nontender, +BS x4 Ext: no clubbing/cyanosis, 1+ b/l LE edema, nontender Neuro: alert, no focal deficits, moves all extremities, , sensations intact b/l upper/lower Psychiatric: Skin: warm/dry, normal color Constitutional Vitals: Vital Signs Temp Pulse Resp BP Pulse Ox O2 Del Method O2 Flow Rate 98.8 F 86 17 142/70 99 Room Air 1 09/24/22 03:49 09/24/22 03:49 09/24/22 03:49 09/24/22 03:49 09/24/22 03:49 09/24/22 03:49 09/23/22 02:40 Period Temp Pulse Resp BP Sys/Franco Pulse Ox O2 Del Method O2 Flow Rate Last 24 Hr 98.2 F-99.1 F 69-86 10-18 108-142/55-70 92-100 Room Air-Room Air Intake and Output 09/23/22 09/24/22 09/24/22 19:59 03:59 11:59 Intake Total 1200 Balance 1200 Weight 85.049 kg Intake & Output: Intake & Output 09/23/22 09/24/22 09/24/22 19:59 03:59 11:59 Intake Total 1200 Balance 1200 Weight 85.049 kg Intake: IV 1000 Sodium Chloride 0.9% 1,000 ml @ 1000 84 mls/hr IV .[id number] [facility] Rx#: [id number] Oral 200 Other: Meal Lunch Percent of Meal Consumed 100% Feeding Ability Independent Urine Appearance Clear Clear Urine Color Yellow Yellow Urine Odor Normal Stool Size Moderate Moderate Stool Color Brown Brown Yellow Stool Consistency Normal for Patient Soft # Voids 2 1 # Bowel Movements 2 1 # of times incontinent of 1 Bowels OBJ DATA Labs 09/24/22 05:38 09/24/22 05:38 Labs: Abnormal Lab Results 09/24/22 09/24/22 09/24/22 05:38 05:38 05:38 RBC 2.95 L Hgb 7.6 L Hct 24.4 L POC Hct MCH 25.8 L RDW 16.9 H Immature Gran % (Auto) 0.6 H Neut % (Auto) Lymph % (Auto) 12.9 L Lymph # (Auto) 0.64 L [place] # (Auto) Lymphocytes % Immature Gran # D-Dimer POC VBG pO2 POC VBG HCO3 POC VBG Total CO2 POC Venous O2 Sat POC VBG Base Excess VBG Lactic Acid POC Creatinine Glucose 115 H POC Glucose Calcium POC WB Ioniz Calcium AST 54 H Alkaline Phosphatase Ammonia Lactate Dehydrogenase 270 H Total Creatine Kinase 1492 H C-Reactive Protein NT-Pro-B Natriuret Pep Total Protein 5.7 L Albumin 3.0 L Procalcitonin TSH Free T4 Prolactin Urine Glucose (UA) Urine RBC Urine Mucus Urine Opiates Screen Ur Oxycodone Screen 09/23/22 09/23/22 09/23/22 09:07 04:56 04:56 RBC Hgb Hct POC Hct MCH RDW Immature Gran % (Auto) Neut % (Auto) Lymph % (Auto) Lymph # (Auto) [place] # (Auto) Lymphocytes % Immature Gran # D-Dimer POC VBG pO2 POC VBG HCO3 POC VBG Total CO2 POC Venous O2 Sat POC VBG Base Excess VBG Lactic Acid POC Creatinine Glucose 109 H POC Glucose Calcium 8.5 L POC WB Ioniz Calcium AST 86 H Alkaline Phosphatase Ammonia Lactate Dehydrogenase 289 H Total Creatine Kinase 3227 H C-Reactive Protein NT-Pro-B Natriuret Pep Total Protein Albumin Procalcitonin TSH Free T4 0.78 L Prolactin Urine Glucose (UA) Urine RBC Urine Mucus Urine Opiates Screen Ur Oxycodone Screen 09/23/22 09/23/22 09/22/22 02:57 01:20 22:19 RBC Hgb Hct POC Hct MCH RDW Immature Gran % (Auto) Neut % (Auto) Lymph % (Auto) Lymph # (Auto) [place] # (Auto) Lymphocytes % Immature Gran # D-Dimer POC VBG pO2 POC VBG HCO3 23.2 L POC VBG Total CO2 POC Venous O2 Sat POC VBG Base Excess VBG Lactic Acid POC Creatinine Glucose POC Glucose Calcium POC WB Ioniz Calcium AST Alkaline Phosphatase Ammonia Lactate Dehydrogenase Total Creatine Kinase C-Reactive Protein NT-Pro-B Natriuret Pep 418.4 H Total Protein Albumin Procalcitonin TSH Free T4 Prolactin Urine Glucose (UA) 150 A Urine RBC 5 H Urine Mucus Few A Urine Opiates Screen Ur Oxycodone Screen 09/22/22 09/22/22 09/22/22 22:19 21:09 21:09 RBC Hgb Hct POC Hct MCH RDW Immature Gran % (Auto) Neut % (Auto) Lymph % (Auto) Lymph # (Auto) [place] # (Auto) Lymphocytes % Immature Gran # D-Dimer 1.81 H POC VBG pO2 POC VBG HCO3 POC VBG Total CO2 POC Venous O2 Sat POC VBG Base Excess VBG Lactic Acid POC Creatinine Glucose POC Glucose Calcium POC WB Ioniz Calcium AST Alkaline Phosphatase Ammonia Lactate Dehydrogenase Total Creatine Kinase 4811 H C-Reactive Protein 4.60 H NT-Pro-B Natriuret Pep Total Protein Albumin Procalcitonin TSH Free T4 Prolactin Urine Glucose (UA) Urine RBC Urine Mucus Urine Opiates Screen Suspect positive A Ur Oxycodone Screen Suspect positive A 09/22/22 09/22/22 09/22/22 18:53 18:36 18:36 RBC Hgb Hct POC Hct MCH RDW Immature Gran % (Auto) Neut % (Auto) Lymph % (Auto) Lymph # (Auto) [place] # (Auto) Lymphocytes % Immature Gran # D-Dimer POC VBG pO2 45 H POC VBG HCO3 22.9 L POC VBG Total CO2 24.0 L POC Venous O2 Sat 78.0 H POC VBG Base Excess -3.0 L VBG Lactic Acid 3.6 H POC Creatinine Glucose POC Glucose Calcium POC WB Ioniz Calcium AST Alkaline Phosphatase Ammonia 114 H Lactate Dehydrogenase Total Creatine Kinase C-Reactive Protein NT-Pro-B Natriuret Pep Total Protein Albumin Procalcitonin 0.13 H TSH Free T4 Prolactin Urine Glucose (UA) Urine RBC Urine Mucus Urine Opiates Screen Ur Oxycodone Screen 09/22/22 09/22/22 09/22/22 18:34 18:34 18:34 RBC Hgb Hct POC Hct MCH RDW Immature Gran % (Auto) Neut % (Auto) Lymph % (Auto) Lymph # (Auto) [place] # (Auto) Lymphocytes % 6 L Immature Gran # D-Dimer POC VBG pO2 POC VBG HCO3 POC VBG Total CO2 POC Venous O2 Sat POC VBG Base Excess VBG Lactic Acid POC Creatinine Glucose POC Glucose Calcium POC WB Ioniz Calcium AST Alkaline Phosphatase Ammonia Lactate Dehydrogenase 383 H Total Creatine Kinase C-Reactive Protein NT-Pro-B Natriuret Pep Total Protein Albumin Procalcitonin TSH Free T4 Prolactin 25.4 H Urine Glucose (UA) Urine RBC Urine Mucus Urine Opiates Screen Ur Oxycodone Screen 09/22/22 09/22/22 09/22/22 18:34 18:34 18:32 RBC 3.51 L Hgb 9.1 L Hct 29.3 L POC Hct 30.0 L MCH 25.9 L RDW 17.0 H Immature Gran % (Auto) 0.8 H Neut % (Auto) 79.7 H Lymph % (Auto) 8.3 L Lymph # (Auto) 0.80 L [place] # (Auto) 0.98 H Lymphocytes % Immature Gran # 0.08 H D-Dimer POC VBG pO2 POC VBG HCO3 POC VBG Total CO2 POC Venous O2 Sat POC VBG Base Excess VBG Lactic Acid POC Creatinine 1.4 H Glucose POC Glucose 193 H Calcium POC WB Ioniz Calcium 1.14 L AST 105 H Alkaline Phosphatase 123 H Ammonia Lactate Dehydrogenase Total Creatine Kinase C-Reactive Protein NT-Pro-B Natriuret Pep Total Protein Albumin Procalcitonin TSH 5.46 H Free T4 Prolactin Urine Glucose (UA) Urine RBC Urine Mucus Urine Opiates Screen Ur Oxycodone Screen Meds: Medications Acetaminophen (Acetaminophen 325 Mg Tablet) 650 mg PO Q6HP PRN; Protocol PRN Reason: Per Pain Protocol/Fever > 101 Last Admin: 09/24/22 03:59 Dose: 650 mg Albuterol/Ipratropium (Ipratropium/Albuterol 3 Ml Ampul.Neb) 3 ml NEB Q4HP PRN PRN Reason: Shortness Of Breath Dextrose (Dextrose 50% 50 Ml Vial) 0 ml IV UD PRN PRN Reason: Per Sliding Scale Diagnostic Test (Pha) (Accu-Chek 1 Each Strip) 1 each FS ACHS [facility] Last Admin: 09/23/22 21:19 Dose: 1 each Docusate Sodium (Docusate Sodium 100 Mg Capsule) 100 mg PO BID [facility] Last Admin: 09/23/22 21:19 Dose: Not Given Enoxaparin Sodium (Enoxaparin 40 Mg/0.4 Ml Syringe) 40 mg SQ DAILY [facility] Last Admin: 09/23/22 12:19 Dose: 40 mg Glucose (Dextrose 31 Gm Oral.Susp) 15 gm PO PRN PRN PRN Reason: Hypoglycemia Potassium Chloride 40 meq/ (Dextrose) 520 mls @ 130 mls/hr IV UD PRN PRN Reason: Potassium < 3 Magnesium Sulfate (Magnesium Sulfate) 2 gm in 50 mls @ 50 mls/hr IV UD PRN PRN Reason: Magnesium </= 1.6 Insulin Human Lispro (Insulin Lispro 1 Unit/0.01 Ml Unit) 0 unit SQ ACHS [facility]; Protocol Last Admin: 09/23/22 21:19 Dose: Not Given Levothyroxine Sodium (Levothyroxine 50 Mcg Tablet) 50 mcg PO QAMAC [facility] Last Admin: 09/24/22 06:59 Dose: 50 mcg Ondansetron HCl (Ondansetron 4 Mg/2 Ml Vial) 4 mg IV Q4HP PRN PRN Reason: Nausea And Vomiting Polyethylene Glycol (Polyethylene Glycol 3350 17 Gm Packet) 17 gm PO DAILYP PRN PRN Reason: Constipation Potassium Chloride (Potassium Chloride 20 Meq Tablet) 40 meq PO UD PRN PRN Reason: Potssium is 3-3.5 Potassium Chloride (Potassium Chloride 20 Meq Tablet) 40 meq PO UD PRN PRN Reason: Potassium < 3 Senna (Sennosides 1 Tablet) 2 tab PO DAILYP PRN PRN Reason: Constipation Sodium Chloride (0.9 % Sodium Chloride 10 Ml Syringe) 10 ml IV Q8 REILLY Last Admin: 09/24/22 04:00 Dose: 10 ml A/P Narrative A/P Narrative: A: *Rhabdomyolysis: 2/2 downtime on the floor -improving *Generalized weakness/deconditioning: Has been in decline since chemoradiation last October *Encephalopathy: 2/2 hypoxia from atelectasis and emphysema + likely medications + ?liver with elevated ammonia *acute hypoxic respiratory failure: 2/2 atelectasis and underlying emphysema *Atelectasis: *Hyperammonemia: ?etiology -no current etoh use, plts/bili/alb ok, no h/o liver dz -UA negative, no portal vein thrombosis, ?degree of starvation -resolved s/p lactulose in ED x1 *Hyperlactatemia: ?hypoxia vs hepatic metabolism impairment -resolved with IVF in ED *Volume depletion: *MARYANN on CKD II: 2/2 volume depletion -improved *Anemia, acute on chronic: likely dilutional, no gross bleeding, monitor *Primary Hypothyroidism (New dx): *PVD: On asa/plavix/?cilostazol, statin *DM w/neuropathy: on metformin *HTN/HLD: on acei *Depression/anxiety: cont home meds *Chr pain: On morphine pump and follows with pain clinic *Tobacco abuse: *Goals of care: Generalized continued decline since cancer diagnosis and treatment last October P: -IVF d/c, f/u CPK -IS/acapella -supp O2 and wean as able, prn nebs, RT to assess for home O2 upon d/c -Monitor renal function/UOP/fluid balance -Monitor electrolytes and replace as needed -elevated tsh, check t4 >> t4 low. Start levothyroxine at 50mcg daily and f/u labs in 4-6 weeks -monitor H&H, transfuse for <7 -SSI -cont asa/plavix -Continue statin -restart ACEI -PT/OT -Smoking cessation counseling -CM for placement needs likley to SNF -ppx: lovenox Time Spent With Patient Time: Total time spent is greater than 50% in coordination of care (as documented) at patient's floor/unit and/or counseling patient: Subsequent: Total time with patient: 50 - 65 Minutes QUALITY VTE Deep Vein Thrombosis/Pulmonary Embolism Present on Admission: No
[2022-09-24] MEDS ORDERED: LORazepam 1 MG TABLET PO PRN (07:30)
[2022-09-24] MEDS ORDERED: PROCHLORPERAZINE 10 MG TABLET PO PRN (07:33)
[2022-09-24] MEDS: INSULIN LISPRO 1 UNIT/0.01 ML UNIT SQ SCH ×4 (07:38→21:13)
[2022-09-24] MEDS: PREGABALIN 75 MG CAPSULE PO SCH (08:11)
[2022-09-24] MEDS: morphine 30 MG TAB.SR.12H PO SCH ×2 (08:11→21:13)
[2022-09-24] MEDS: ESCITALOPRAM 10 MG TABLET PO SCH (08:11)
[2022-09-24] MEDS: ASPIRIN 81 MG TAB.CHEW PO SCH (08:11)
[2022-09-24] MEDS: ATORVASTATIN 40 MG TABLET PO SCH (08:12)
[2022-09-24] MEDS: ENOXAPARIN 40 MG/0.4 ML SYRINGE SQ SCH (08:12)
[2022-09-24] MEDS: DOCUSATE SODIUM 100 MG CAPSULE PO SCH ×2 (08:12→21:13)
[2022-09-24] MEDS: LISINOPRIL 10 MG TABLET PO SCH (08:13)
[2022-09-24] MEDS: CLOPIDOGREL 75 MG TABLET PO SCH (08:13)
[2022-09-24] MEDS: oxyCODONE IR 5 MG TABLET PO PRN ×2 (08:16→14:42)
--- NOTE | 2022-09-24 20:37 | EKG ---
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
[2022-09-24] MEDS ORDERED: PREGABALIN 150 MG CAPSULE PO SCH (21:00)
[2022-09-24] MEDS ORDERED: DULoxetine 30 MG CAPSULE PO SCH (21:00)
[2022-09-25] MEDS: oxyCODONE IR 5 MG TABLET PO PRN ×4 (00:55→14:40)
[2022-09-25] MEDS: 0.9 % SODIUM CHLORIDE 10 ML SYRINGE IV SCH ×2 (04:16→14:42)
[2022-09-25 06:44] LABS: Basophils # (Auto) 0.03 K/mcL (0.00-0.30); Basophils % (Auto) 0.7 % (0.0-2.0); Eosinophils # (Auto) 0.21 K/mcL (0.00-0.70); Eosinophils % (Auto) 5.1 % (0.0-7.0); Hematocrit 22.7 % (40.1-51.0); Hemoglobin 7.4 g/dL (13.7-17.5); Lymphocytes # (Auto) 0.81 K/mcL (1.50-4.80); Lymphocytes % (Auto) 19.7 % (15.5-49.0); Mean Cell Volume 81.4 fL (80.0-100.0); Mean Corpuscular HGB Conc 32.6 g/dL (31.0-36.0); Mean Platelet Volume 9.8 fL (8.8-12.5); Monocytes # (Auto) 0.56 K/mcL (0.10-0.90); Monocytes % (Auto) 13.6 % (1.0-12.0); Neutrophils % (Auto) 60.4 % (38.0-78.0); Platelet Count 258 K/mcL (140-440); RBC 2.79 M/mcL (4.63-6.08); Red Cell Distribution Width 17.2 % (11.5-14.5); WBC 4.1 K/mcL (4.5-11.0)
[2022-09-25] MEDS: INSULIN LISPRO 1 UNIT/0.01 ML UNIT SQ SCH ×3 (07:08→16:36)
[2022-09-25 07:10] LABS: Blood Urea Nitrogen 8 mg/dL (8-23); Calcium 8.8 mg/dL (8.6-10.4); Carbon Dioxide 26 mmol/L (22-30); Chloride 102 mmol/L (96-108); Creatine Kinase 1030 U/L (24-195); Glomerular Filtration Rate 84; Glucose 103 mg/dL (70-105)
[2022-09-25] MEDS: LEVOTHYROXINE 50 MCG TABLET PO SCH (07:22)
[2022-09-25] MEDS: morphine 30 MG TAB.SR.12H PO SCH (08:30)
[2022-09-25] MEDS: PREGABALIN 75 MG CAPSULE PO SCH (08:30)
[2022-09-25] MEDS: LISINOPRIL 10 MG TABLET PO SCH (08:30)
[2022-09-25] MEDS: ESCITALOPRAM 10 MG TABLET PO SCH (08:30)
[2022-09-25] MEDS: DOCUSATE SODIUM 100 MG CAPSULE PO SCH (08:31)
[2022-09-25] MEDS: CLOPIDOGREL 75 MG TABLET PO SCH (08:31)
[2022-09-25] MEDS: ASPIRIN 81 MG TAB.CHEW PO SCH (08:31)
[2022-09-25] MEDS: ENOXAPARIN 40 MG/0.4 ML SYRINGE SQ SCH (08:31)
[2022-09-25] MEDS: ATORVASTATIN 40 MG TABLET PO SCH (08:31)
--- NOTE | 2022-09-25 13:05 | Discharge Summary ---
Discharge Provider Provider IMPORTANT FOLLOW-UP INFORMATION FOR PCP: Patient information: Note initiated : 09/25/22 at 1:01 pm Service Date, if different from initiated Date: [] Patient: Jt Goodrich 72 y/o M admitted on 09/23/22 for "I can't walk", Rhabdomyelosis. Chief Complaint: [] Date of admission: 09/23/22 11:42 Discharge date: 09/25/22 Primary care physician: Kameron Forbes DO Consults: 09/22/22 Consult to Physician [CONS] Stat Comment: Consulting Provider: Delon Amador Reason For Exam: Physician to Consult COURSE Hospital Course Hospital course: Mr. Goodrich is a 72 year old who presented with generalized weakness and some confusion per . reported patient p.o. intake of fluids was reduced. Per the he typically only eats 1 time a day anyway because of history of neck cancer and chemoradiation which makes it difficult. Patient denies feeling like any food or drink goes down the wrong pipe. reports that she found him on the floor in front of his chair this morning. He typically sleeps in his chair and she last saw him sleeping in his chair the previous night. She helped him up to the chair and he remained there through the afternoon but in the afternoon when he tried to get up he was so weak he could not and then she says he was more confused. Does admit to some shortness of breath.. Denies fever chills chest pain. Denies abd pain diarrhea constipation. He last had chemo and radiation in October 2021 and family says that since that time he has been in generalized decline but seems to been much more rapid dec line over the past couple months. Does have memory issues since the chemo. And his mobility has been decreasing as well. He had a PET scan in June that showed abnormal mediastinal and right perihilar lymphadenopathy with increased metabolic activity concerning for metastatic disease. Patient has been following with oncology whose plan was to do regular PET scans in the next was in October. CTA chest done yesterday showed a moderate enlarged lymph nodes in the right hilum and pericarinal. There was also 11 millimeter nodule in the right lower lobe which had the potential for being a metastasis. The ED had work-up that revealed His lactate was noted to be elevated at 3.6. Creatinine 1.4 on [id number] and he does have a history of chronic kidney disease stage III. Last reported creatinine we have on file is from January of fall which is 1.5 and range from 1.0-1.4 in December. His ammonia was elevated at 114. He had a negative procalcitonin. And his CPK was 4800. In the ED they did have a recorded oxygen level of 88% on room air. Patient was placed on 1 L. Of note patient is on a morphine pump for chronic pain. Chest imaging showed atelectasis but no obvious infiltrate and no PE. CT brain was done which was unremarkable for any acute pathology. Liver ultrasound showed cholelithiasis and moderately dilated common bile duct mildly enlarged gallbladder which was enlarged on previous imaging. However patient liver enzymes are completely normal bilirubin is completely normal and patient is nontender in the abdomen. Case is also does brook with surgeon. No immediate need for surgical intervention or further treatment. Patent venous flows. Laboratory improving with IV fluids. Treating for rhabdomyolysis. Patient too weak and unable to care for himself at home. 09/24 Patient feeling better today. Hemoglobin lower today, no gross bleeding, suspect delusional, monitor. Levothyroxine started. Follow-up labs. States poor sleep, Home med rec not reconciled in restarting home pain medications. 09/25 patient feels he is back to baseline. He reported he has been ambulating in the hallway. We discussed discharge planning and that initial recomme ndations for for SNF also his should be able to take care of him. Patient reported he is not going to SNF and his is okay to take him home. Patient had PT eval later in the afternoon and was cleared by PT to discharge home. Discharge diagnoses: *Rhabdomyolysis: 2/2 downtime on the floor, resolved *Generalized weakness/deconditioning: Acute on chronic, has been in decline since chemoradiation last October. He has improved. PT cleared him to go home *Acute encephalopathy: 2/2 hypoxia from atelectasis and emphysema + likely medications + ?liver with elevated ammonia. This has now resolved *Acute hypoxic respiratory failure: 2/2 atelectasis and underlying emphysema, this has now resolved. He is on room air now and satting well *Atelectasis: As above *Hyperammonemia: ?etiology -no current etoh use, plts/bili/alb ok, no h/o liver dz -UA negative, no portal vein thrombosis, ?degree of starvation -resolved s/p lactulose in ED x1 *Hyperlactatemia: ?hypoxia vs hepatic metabolism impairment -resolved with IVF in ED *Volume depletion: *MARYANN on CKD II: 2/2 volume depletion, serum creatinine back to baseline *Anemia, acute on chronic: likely dilutional, no gross bleeding, monitor as outpatient *Primary Hypothyroidism (New dx): high TSH, low T4. Started on Synthroid 50 mcg daily. Recommend repeating TFTs in 4 to 6 weeks *h/o SCC of Neck: following with [facility] oncology -PET/CT in June with suspicious LAD in thoracic cavity, heme/onc following serial PET/CT's -Has had continued decline since chemo-rads last October -F/u with oncology as outpatient *PVD: On asa/plavix/cilostazol, statin *DM w/neuropathy: on metformin *HTN/HLD: on acei *Depression/anxiety: cont home meds *Chr pain: On morphine pump and follows with pain clinic *Tobacco abuse: *Goals of care: Generalized continued decline since cancer diagnosis and treatment last October PHYSICAL EXAM: General: Alert and awake, sitting up, no acute distress Eyes/N/T: EOMI, no scleral icterus, Head/Neck: neck supple, full ROM, CV: RRR, 2/6SM, Pulm: prolonged exp phase, no wheezing/rhonchi/rales, no respiratory distress Abd: soft, nontender, +BS x4 Ext: no clubbing/cyanosis, 1+ b/l LE edema, nontender Neuro: alert, no focal deficits, moves all extremities, , sensations intact b/l upper/lower Psychiatric: Appropriate mood and affect Skin: warm/dry, normal color Time taken > 50 min Discharge diagnosis: Rhabdomyolysis, weakness, hypoxia Time Spent with Patient Time attestation: Total time spent providing and/or coordinating discharge services: Time spent: Greater than 30 minutes EXAM Constitutional Vitals: Temp Pulse Resp BP Pulse Ox O2 Del Method O2 Flow Rate 98.2 F 62 18 110/59 94 Room Air 1 09/25/22 12:00 09/25/22 12:00 09/25/22 12:09/25/22 12:00 09/25/22 12:09/25/22 12:00 09/23/22 02:40 Discharge Data Data Completed and Pending Labs on day of discharge: Labs from last 24 hours 09/25/22 09/25/22 05:20 05:20 WBC 4.1 L RBC 2.79 L Hgb 7.4 L Hct 22.7 L MCV 81.4 MCH 26.5 MCHC 32.6 RDW 17.2 H Plt Count 258 MPV 9.8 Immature Gran % (Auto) 0.5 Neut % (Auto) 60.4 Lymph % (Auto) 19.7 [place] % (Auto) 13.6 H Eos % (Auto) 5.1 Baso % (Auto) 0.7 Lymph # (Auto) 0.81 L [place] # (Auto) 0.56 Eos # (Auto) 0.21 Baso # (Auto) 0.03 Immature Gran # 0.02 Absolute Neutrophils 2.49 Sodium 136 Potassium 4.0 Chloride 102 Carbon Dioxide 26 Anion Gap 8.0 BUN 8 Creatinine 0.9 GFR Calculation 84 Glucose 103 Calcium 8.8 Total Creatine Kinase 1030 H Preliminary micro results at discharge 09/22/22 18:57 Blood Culture - Preliminary Blood 09/22/22 18:53 Blood Culture - Preliminary Blood Discharge Plan Patient/Caregiver Discharge Instructions Activity: ambulate only with your walker Instructions: Weakness (GEN) Activity Restrictions/Additional Instructions: Recommend repeating thyroid profile in 4 to 6 weeks Prescriptions: New levothyroxine 50 mcg Tablet 50 mcg PO QAMAC Qty: 30 0RF Continued (DME) FreeStyle Esther 14 Day [place] Misc See Rx Instructions .ROUTE .MEDSUPPLY Qty: 6 3RF Rx Instructions: As directed prochlorperazine maleate 5 mg tablet 5 mg PO BID PRN (Reason: Nausea) (DME) FreeStyle Esther 14 Day Sensor Kit See Rx Instructions .ROUTE .MEDSUPPLY Qty: 6 3RF Rx Instructions: As directed hydroxyzine HCl 25 mg tablet 25 mg PO BID MDD 2 PRN (Reason: anxiety) Qty: 60 0RF atorvastatin 40 mg tablet 40 mg PO QDAY Qty: 90 1RF Jardiance 25 mg tablet 25 mg PO QDAY Qty: 90 1RF lisinopril 10 mg tablet 10 mg PO QDAY Qty: 90 1RF aspirin [Adult Aspirin Regimen] 81 mg tablet,delayed release (DR/EC) 81 mg PO QDAY naloxone 4 mg/actuation spray,non-aerosol 4 mg INTRANASAL .COMPLEX PRN (Reason: opioid overdose) Qty: 2 0RF Rx Instructions: administer 1 dose in one nostril. Call 911. If no response after 3-5 minutes, administer second dose PRN; duloxetine 60 mg capsule,delayed release(DR/EC) 60 mg PO QHS Qty: 90 3RF lorazepam [Ativan] 1 mg tablet 1 mg PO QHS PRN (Reason: anxiety) Qty: 30 2RF pregabalin 75 mg capsule 75 mg PO QAM Qty: 90 2RF pregabalin 150 mg capsule 150 mg PO QHS Qty: 180 2RF morphine [MS Contin] 60 mg tablet extended release 60 mg PO BID MDD 2 Qty: 60 0RF Rx Instructions: *MUST LAST 30 DAYS* P/U 10/21, Start 10/22 oxycodone 10 mg tablet 10 - 20 mg PO .Q4-6H MDD 6 PRN (Reason: pain) Qty: 180 0RF Rx Instructions: *MUST LAST 30 DAYS* P/U 11/05, Start 11/06 cilostazol 50 mg tablet 50 mg PO BID Qty: 30 0RF clopidogrel [Plavix] 75 mg tablet 75 mg PO QDAY varenicline [Chantix] 1 mg tablet 1 mg PO BID escitalopram oxalate 10 mg tablet 10 mg PO QDAY Qty: 90 3RF multivitamin Tablet 1 tab PO QDAY metformin 1,000 mg tablet,ER luke.retention 24 hr 500 mg PO QDAY Follow Up Plan Follow up with: Kameron Forbes DO [Primary Care Provider] - (Your primary care physician will contact you to schedule a post discharge follow up. If you haven't heard from them by Sunday, please call them to be seen within 10-14 days. ) Patient Disposition: Home, Self-Care Overall status at discharge: patient is progressing back to baseline Discharge Orders: Discharge Order (Routine); Ordered 09/25/22 Ordered By: Jeb ROB VTE Deep Vein Thrombosis/Pulmonary Embolism Present on Admission: No
[2022-10-03 08:17] LABS: Opiate Confirmation Positive
== END 2022-09-25 18:12 | disposition home or self-care (01) | DRG 557 ==
LOC: ED 18:20 → MEDSUR 09-23 11:42
PROVIDERS: ADMIT Internal Medicine; ATTEND Internal Medicine

== ENCOUNTER 2023-08-03 04:39 | Inpatient (IN) ==
[2023-08-03] MEDS ORDERED: IOPAMIDOL 100 ML BOTTLE IV ONE (04:40)
[2023-08-03] MEDS: 0.9 % SODIUM CHLORIDE 1,000 ML IV ONE ×3 (05:50→07:31)
[2023-08-03 05:57] LABS: Basophils # (Auto) 0.04 K/mcL (0.00-0.30); Basophils % (Auto) 0.5 % (0.0-2.0); Eosinophils # (Auto) 1.15 K/mcL (0.00-0.70); Hemoglobin 9.2 g/dL (13.7-17.5); Lymphocytes # (Auto) 0.67 K/mcL (1.50-4.80); Lymphocytes % (Auto) 7.6 % (15.5-49.0); Mean Cell Volume 91.5 fL (80.0-100.0); Mean Corpuscular HGB Conc 32.9 g/dL (31.0-36.0); Mean Platelet Volume 9.9 fL (8.8-12.5); Monocytes # (Auto) 0.91 K/mcL (0.10-0.90); Monocytes % (Auto) 10.3 % (1.0-12.0); Neutrophils % (Auto) 68.5 % (38.0-78.0); Platelet Count 308 K/mcL (140-440); RBC 3.06 M/mcL (4.63-6.08); Red Cell Distribution Width 14.1 % (11.5-14.5); WBC 8.8 K/mcL (4.5-11.0)
[2023-08-03 06:18] LABS: ALT/SGPT 8 U/L (<40); AST/SGOT 23 U/L (<40); Albumin 3.1 gm/dL (3.2-5.2); Albumin/Globulin Ratio 0.9 (1.0-2.3); Alkaline Phosphatase 95 U/L (39-117); Bilirubin,Total 0.3 mg/dL (0.1-1.0); Blood Urea Nitrogen 12 mg/dL (8-23); Calcium 8.5 mg/dL (8.6-10.4); Carbon Dioxide 24 mmol/L (22-30); Chloride 99 mmol/L (96-108); Globulin 3.3 gm/dL (2.2-3.7); Glomerular Filtration Rate 74; Glucose 105 mg/dL (70-105)
[2023-08-03] MEDS: AZITHROMYCIN 500 MG in DEXTROSE 5% IN WATER 250 ML IV ONE (08:20)
[2023-08-03] MEDS: cefTRIAXone 1 GM VIAL IV ONE (08:20)
[2023-08-03] MEDS: ASPIRIN 81 MG TAB.CHEW CHEWED ONE (09:16)
[2023-08-03 09:48] LABS: Appearance,Urine Clear (Clear); Bilirubin,Urine Negative (Negative); Color,Urine Yellow; Culture Indicated,Urine No; Glucose,Urine (UA) 500 mg/dL (Negative); Ketones,Urine Negative (Negative); Leukocyte Esterase,Urine Negative /uL (Negative); Nitrate,Urine Negative (Negative); PH,Urine 5.5 (5.0-9.0); Protein,Urine Negative (Negative); Urine Blood Trace-intact ery/mcL (Negative); Urine Hyaline Cast 1 /lph (0-2); Urine RBC 0 /hpf (0-3); Urine Squamous Epithelial Cell 0 /hpf (0-4); Urine WBC 0 /hpf (0-4); Urobilinogen,Urine Normal
[2023-08-03] MEDS: CLOPIDOGREL 75 MG TABLET PO ONE (09:48)
[2023-08-03] MEDS: 0.9 % SODIUM CHLORIDE 500 ML IV ONE (17:14)
[2023-08-03] MEDS ORDERED: IPRATROPIUM/ALBUTEROL 3 ML AMPUL.NEB NEB PRN (20:11)
[2023-08-03] MEDS ORDERED: guaiFENesin/DEXTROMETHORPHAN 5ML UD CUP PO PRN (20:11)
[2023-08-03] MEDS ORDERED: DEXTROSE 31 GM ORAL.SUSP PO PRN (20:11)
[2023-08-03] MEDS ORDERED: DEXTROSE 50% 50 ML VIAL IV PRN (20:11)
[2023-08-03] MEDS: 0.9 % SODIUM CHLORIDE 1,000 ML IV SCH (21:20)
[2023-08-03] MEDS: 0.9 % SODIUM CHLORIDE 10 ML SYRINGE IV SCH (21:25)
[2023-08-03] MEDS: DOCUSATE SODIUM 100 MG CAPSULE PO SCH (21:29)
[2023-08-03] MEDS: SENNOSIDES 1 TABLET PO SCH (21:29)
[2023-08-03] MEDS: INSULIN LISPRO 1 UNIT/0.01 ML UNIT SQ SCH (21:29)
[2023-08-03] MEDS: oxyCODONE IR 5 MG TABLET PO PRN (22:06)
[2023-08-03] MEDS: VANCOMYCIN 1,000 MG in 0.9 % SODIUM CHLORIDE 250 ML IV SCH (22:08)
[2023-08-03] MEDS: PIPERACILLIN SODIUM/TAZOBACTAM 3.375 GM in DEXTROSE 5% IN WATER 100 ML IV SCH (23:25)
[2023-08-04] MEDS: ONDANSETRON 4 MG/2 ML VIAL IV PRN (05:47)
[2023-08-04 07:25] LABS: ALT/SGPT 6 U/L (<40); AST/SGOT 23 U/L (<40); Albumin 2.7 gm/dL (3.2-5.2); Alkaline Phosphatase 85 U/L (39-117); Bilirubin,Total 0.4 mg/dL (0.1-1.0); Blood Urea Nitrogen 8 mg/dL (8-23); Carbon Dioxide 21 mmol/L (22-30); Chloride 101 mmol/L (96-108); Globulin 2.8 gm/dL (2.2-3.7); Glomerular Filtration Rate 88; Glucose 71 mg/dL (70-105)
[2023-08-04 07:28] LABS: Basophils # (Auto) 0.05 K/mcL (0.00-0.30); Basophils % (Auto) 0.7 % (0.0-2.0); Eosinophils % (Auto) 11.7 % (0.0-7.0); Hematocrit 26.4 % (40.1-51.0); Hemoglobin 8.6 g/dL (13.7-17.5); Lymphocytes # (Auto) 1.04 K/mcL (1.50-4.80); Lymphocytes % (Auto) 15.3 % (15.5-49.0); Mean Cell Volume 90.4 fL (80.0-100.0); Mean Corpuscular HGB Conc 32.6 g/dL (31.0-36.0); Mean Platelet Volume 10.5 fL (8.8-12.5); Monocytes # (Auto) 0.94 K/mcL (0.10-0.90); Monocytes % (Auto) 13.8 % (1.0-12.0); Neutrophils % (Auto) 58.2 % (38.0-78.0); Platelet Count 310 K/mcL (140-440); RBC 2.92 M/mcL (4.63-6.08); Red Cell Distribution Width 14.3 % (11.5-14.5); WBC 6.8 K/mcL (4.5-11.0)
[2023-08-04 09:12] LABS: Estimated Average Glucose(eAG) 126 mg/dL
[2023-08-04] MEDS ORDERED: hydrOXYzine 25 MG TABLET PO PRN (09:33)
[2023-08-04] MEDS ORDERED: morphine 30 MG TAB.SR.12H PO SCH ×2 (10:05→21:00)
[2023-08-04] MEDS ORDERED: PREGABALIN 75 MG CAPSULE PO SCH (10:05)
[2023-08-04] MEDS: morphine 30 MG TAB.SR.12H PO SCH (10:22)
[2023-08-04] MEDS: ENOXAPARIN 40 MG/0.4 ML SYRINGE SQ SCH (10:23)
[2023-08-04] MEDS: PREGABALIN 75 MG CAPSULE PO SCH (10:23)
[2023-08-04] MEDS: oxyCODONE IR 5 MG TABLET PO PRN (11:50)
[2023-08-04] MEDS: VANCOMYCIN PER PHARMACY IV ONE (18:35)
[2023-08-04] MEDS: PREGABALIN 150 MG CAPSULE PO SCH (20:10)
[2023-08-04] MEDS: DULoxetine 30 MG CAPSULE PO SCH (20:10)
[2023-08-05 07:02] LABS: Basophils # (Auto) 0.04 K/mcL (0.00-0.30); Basophils % (Auto) 0.6 % (0.0-2.0); Eosinophils # (Auto) 1.16 K/mcL (0.00-0.70); Eosinophils % (Auto) 17.8 % (0.0-7.0); Hematocrit 28.6 % (40.1-51.0); Hemoglobin 9.3 g/dL (13.7-17.5); Lymphocytes % (Auto) 9.2 % (15.5-49.0); Mean Cell Volume 91.4 fL (80.0-100.0); Mean Corpuscular HGB Conc 32.5 g/dL (31.0-36.0); Mean Platelet Volume 10.3 fL (8.8-12.5); Monocytes # (Auto) 0.74 K/mcL (0.10-0.90); Monocytes % (Auto) 11.3 % (1.0-12.0); Neutrophils % (Auto) 61.1 % (38.0-78.0); Platelet Count 296 K/mcL (140-440); RBC 3.13 M/mcL (4.63-6.08); Red Cell Distribution Width 14.1 % (11.5-14.5); WBC 6.5 K/mcL (4.5-11.0)
[2023-08-05 07:25] LABS: ALT/SGPT 6 U/L (<40); AST/SGOT 21 U/L (<40); Albumin 2.6 gm/dL (3.2-5.2); Albumin/Globulin Ratio 0.9 (1.0-2.3); Alkaline Phosphatase 85 U/L (39-117); Bilirubin,Total 0.3 mg/dL (0.1-1.0); Blood Urea Nitrogen 7 mg/dL (8-23); Calcium 8.1 mg/dL (8.6-10.4); Carbon Dioxide 21 mmol/L (22-30); Chloride 101 mmol/L (96-108); Globulin 2.9 gm/dL (2.2-3.7); Glomerular Filtration Rate 84; Glucose 67 mg/dL (70-105)
[2023-08-05] MEDS: MULTIVIT,THER IRON,CA,FA & MIN 1 TABLET PO SCH (08:14)
[2023-08-05] MEDS: LEVOTHYROXINE 50 MCG TABLET PO SCH (08:15)
[2023-08-05] MEDS: ESCITALOPRAM 10 MG TABLET PO SCH (08:15)
[2023-08-05] MEDS: CLOPIDOGREL 75 MG TABLET PO SCH (08:15)
[2023-08-05] MEDS: ATORVASTATIN 40 MG TABLET PO SCH (08:15)
[2023-08-05] MEDS: ASPIRIN 81 MG TAB.CHEW PO SCH (08:15)
[2023-08-05] MEDS: VITAMIN D3 25 MCG TABLET PO SCH (08:34)
[2023-08-05] MEDS: Empagliflozin [Jardiance] 25 mg tablet PO SCH (08:34)
[2023-08-05] MEDS ORDERED: PREGABALIN 75 MG CAPSULE PO SCH (09:00)
[2023-08-05] MEDS: ACETAMINOPHEN 325 MG TABLET PO PRN (11:58)
[2023-08-05] MEDS: morphine 4 MG/ML VIAL IV PRN (12:02)
[2023-08-06 07:03] LABS: Basophils # (Auto) 0.04 K/mcL (0.00-0.30); Basophils % (Auto) 0.6 % (0.0-2.0); Eosinophils # (Auto) 1.16 K/mcL (0.00-0.70); Eosinophils % (Auto) 17.8 % (0.0-7.0); Hematocrit 26.7 % (40.1-51.0); Lymphocytes # (Auto) 0.56 K/mcL (1.50-4.80); Lymphocytes % (Auto) 8.6 % (15.5-49.0); Mean Cell Volume 89.6 fL (80.0-100.0); Mean Corpuscular HGB Conc 33.7 g/dL (31.0-36.0); Mean Platelet Volume 10.1 fL (8.8-12.5); Monocytes # (Auto) 0.72 K/mcL (0.10-0.90); Monocytes % (Auto) 11.1 % (1.0-12.0); Neutrophils % (Auto) 61.7 % (38.0-78.0); Platelet Count 283 K/mcL (140-440); RBC 2.98 M/mcL (4.63-6.08); WBC 6.5 K/mcL (4.5-11.0)
[2023-08-06 07:14] LABS: ALT/SGPT 6 U/L (<40); AST/SGOT 30 U/L (<40); Albumin 2.5 gm/dL (3.2-5.2); Albumin/Globulin Ratio 0.9 (1.0-2.3); Alkaline Phosphatase 114 U/L (39-117); Bilirubin,Total 0.3 mg/dL (0.1-1.0); Blood Urea Nitrogen 6 mg/dL (8-23); Calcium 7.8 mg/dL (8.6-10.4); Carbon Dioxide 21 mmol/L (22-30); Chloride 101 mmol/L (96-108); Globulin 2.8 gm/dL (2.2-3.7); Glomerular Filtration Rate 84; Glucose 76 mg/dL (70-105)
[2023-08-07 07:09] LABS: ALT/SGPT 9 U/L (<40); AST/SGOT 36 U/L (<40); Albumin 2.5 gm/dL (3.2-5.2); Albumin/Globulin Ratio 0.9 (1.0-2.3); Alkaline Phosphatase 197 U/L (39-117); Bilirubin,Total 0.3 mg/dL (0.1-1.0); Blood Urea Nitrogen 6 mg/dL (8-23); Calcium 7.9 mg/dL (8.6-10.4); Carbon Dioxide 20 mmol/L (22-30); Chloride 101 mmol/L (96-108); Globulin 2.9 gm/dL (2.2-3.7); Glomerular Filtration Rate 84; Glucose 75 mg/dL (70-105)
[2023-08-07 09:40] LABS: Basophils # (Auto) 0.03 K/mcL (0.00-0.30); Basophils % (Auto) 0.5 % (0.0-2.0); Eosinophils # (Auto) 0.79 K/mcL (0.00-0.70); Eosinophils % (Auto) 13.9 % (0.0-7.0); Hematocrit 27.2 % (40.1-51.0); Hemoglobin 8.9 g/dL (13.7-17.5); Lymphocytes # (Auto) 0.62 K/mcL (1.50-4.80); Lymphocytes % (Auto) 10.9 % (15.5-49.0); Mean Cell Volume 90.1 fL (80.0-100.0); Mean Corpuscular HGB Conc 32.7 g/dL (31.0-36.0); Mean Platelet Volume 10.5 fL (8.8-12.5); Monocytes # (Auto) 0.79 K/mcL (0.10-0.90); Monocytes % (Auto) 13.9 % (1.0-12.0); Neutrophils % (Auto) 60.3 % (38.0-78.0); Platelet Count 270 K/mcL (140-440); RBC 3.02 M/mcL (4.63-6.08); Red Cell Distribution Width 14.4 % (11.5-14.5); WBC 5.7 K/mcL (4.5-11.0)
== END 2023-08-07 15:10 | disposition hospice, inpatient (51) | DRG 193 ==
LOC: ED 04:39 → MEDSUR 17:51
PROVIDERS: ADMIT Internal Medicine; ATTEND Internal Medicine